=== PATIENT | male | born 1960 | race Caucasian/White ===

== ENCOUNTER → 2018-12-01 07:49 | Outpatient (CLI) | payer OTHER, SELFPAY ==
[2018-11-17 08:50] VITALS: BMI 31.6
--- NOTE | 2018-12-01 08:58 | CT_ITS ---
STUDY: LOW DOSE CT LUNG CANCER SCREENING REASON FOR EXAM: Male, 58 years old. 80 pack-year history of smoking. RADIATION DOSAGE (If Supplied By Facility): CTDIvol = ( 4.02 ) mGy, DLP = ( 148.98 ) mGycm TECHNIQUE: No contrast was administered. Low dose technique was utilized (average mAS-38 and kVp 120). 1.25 mm axial source images with a slice interval of 1.25-mm were reconstructed in lung windows. 2.5 mm axial source images with a slice interval of 2.5-mm were reconstructed in lung windows. 5.0 mm axial source images with a slice interval of 5.0-mm were reconstructed in soft tissue windows. Nodule measured using lung windows on PACS and/or independent workstation with automated measurement of minimum and maximum diameter. Nodule measurement reported as average diameter rounded to the nearest whole number. Growth is defined as an increase ins size of greater than 1.5 mm. COMPARISON: None. NODULES: No suspicious nodular densities are seen. Total lung nodules (excluding granulomas): 0 Emphysema: Mild degree of bile scarring and bullous formation in both upper lobes. Mild degree of scarring in the posterior medial segment of the right lower lobe. Endobronchial lesion: None Aorta: Unremarkable. Coronary arteries: Unremarkable Heart: Unremarkable Pulmonary artery: Not enlarged Mediastinal nodes: Small benign-appearing mediastinal lymph nodes. Other chest and abdominal findings: CT/Low Dose CT Lung Screening IMPRESSION: Lung-RADS category 2 - Continue annual screening with LDCT in 12 months. IMPORTANT NOTES FOR USE: ACR Lung-RADS Version 1.0 Assessment Categories Release Date: December 28, 2013 Category: Coded 0-4 bases on nodule(s) with highest degree of suspicion. Negative screen is defined as categories 1 and 2; a positive screen is defined as categories 3 and 4. Category 3 and 4A nodules that are unchanged on interval CT should be coded as category 2, and individuals returned to screening in 12 months. Category 4X: Category 3 or 4 nodules with additional imaging findings that increase the suspicion of lung cancer, such as spiculation, GGN that doubles in size in 1 year, enlarged lymph notes, etc. Category Modifiers: S (significant finding unrelated to lung cancer) and C (prior history of treated lung cancer) may be added to the 0-4 Lung-RADS Electronically Signed: Shravan Jim, at 9:03 EDT , Service support ,
== END ==
PROVIDERS: Family Provider Student in an Organized Health Care Education/Training Program; PCP Student in an Organized Health Care Education/Training Program; Referring Provider Nurse Practitioner Family; Visit Provider Nurse Practitioner Family
DX: F17.209 Nicotine dependence, unspecified, with unspecified nicotine-induced disorders (principal); Z12.2 Encounter for screening for malignant neoplasm of respiratory organs
CPT/HCPCS: G0297

== ENCOUNTER → 2020-01-12 | Outpatient (CLI) | payer OTHER, SELFPAY ==
[2018-12-01 08:20] VITALS: BMI 31.8
[2020-01-12 12:57] VITALS: BMI 33.7
--- NOTE | 2020-01-12 13:40 | CT_ITS ---
STUDY: LOW DOSE CT LUNG CANCER SCREENING REASON FOR EXAM: Male, 59 years old. TOBACCO USE, 1/2-1 PPD X 40 YRS. RADIATION DOSAGE (If Supplied By Facility): CTDIvol = ( 4.02 ) mGy, DLP = ( 130.39 ) mGycm TECHNIQUE: No contrast was administered. Low dose technique was utilized (average mAS-38 and kVp 120). 1.25 mm axial source images with a slice interval of 1.25-mm were reconstructed in lung windows. 2.5 mm axial source images with a slice interval of 2.5-mm were reconstructed in lung windows. 5.0 mm axial source images with a slice interval of 5.0-mm were reconstructed in soft tissue windows. Nodule measured using lung windows on PACS and/or independent workstation with automated measurement of minimum and maximum diameter. Nodule measurement reported as average diameter rounded to the nearest whole number. Growth is defined as an increase ins size of greater than 1.5 mm. COMPARISON: Comparison is made with prior examination dated December 01, 2018. NODULES: No suspicious nodules are seen. Emphysema: Stable mild degree of scarring and bullous formation in both upper lobes. Mild degree of scarring in the posteromedial segment of the right lower lobe. Aorta: Mild degree of atherosclerotic calcification in the aortic arch. Coronary arteries: Unremarkable. Heart: Unremarkable. Mediastinal nodes: Small benign-appearing mediastinal lymph nodes. Other chest and abdominal findings: Degenerative changes of the thoracic vertebrae. CT/Low Dose CT Lung Screening IMPRESSION: Lung-RADS category 2 - Continue annual screening with LDCT in 12 months. IMPORTANT NOTES FOR USE: ACR Lung-RADS Version 1.0 Assessment Categories Release Date: December 28, 2013 Category: Coded 0-4 bases on nodule(s) with highest degree of suspicion. Negative screen is defined as categories 1 and 2; a positive screen is defined as categories 3 and 4. Category 3 and 4A nodules that are unchanged on interval CT should be coded as category 2, and individuals returned to screening in 12 months. Category 4X: Category 3 or 4 nodules with additional imaging findings that increase the suspicion of lung cancer, such as spiculation, GGN that doubles in size in 1 year, enlarged lymph notes, etc. Category Modifiers: S (significant finding unrelated to lung cancer) and C (prior history of treated lung cancer) may be added to the 0-4 Lung-RADS Electronically Signed: Shravan Jim, at 14:08 EDT , Service support ,
== END | disposition home or self-care (01) ==
PROVIDERS: PCP Student in an Organized Health Care Education/Training Program; Referring Provider Nurse Practitioner Family; Visit Provider Nurse Practitioner Family
DX: Z12.2 Encounter for screening for malignant neoplasm of respiratory organs (principal); Z87.891 Personal history of nicotine dependence
CPT/HCPCS: G0297

== ENCOUNTER → 2021-03-23 12:02 | Outpatient (CLI) | payer OTHER, SELFPAY ==
[2020-02-01 14:58] VITALS: BMI 34.6
--- NOTE | 2021-03-23 12:44 | CT_ITS ---
STUDY: LOW DOSE CT LUNG CANCER SCREENING REASON FOR EXAM: Male, 61 years old. Lung cancer screening -- and gt;30 pk yr history;former smoker; asymptomatic RADIATION DOSAGE (If Supplied By Facility): CTDIvol = ( 4.02 ) mGy, DLP = ( 158.03 ) mGycm TECHNIQUE: No contrast was administered. Low dose technique was utilized (average mAS-38 and kVp 120). 1.25 mm axial source images with a slice interval of 1.25-mm were reconstructed in lung windows. 2.5 mm axial source images with a slice interval of 2.5-mm were reconstructed in lung windows. 5.0 mm axial source images with a slice interval of 5.0-mm were reconstructed in soft tissue windows. Nodule measured using lung windows on PACS and/or independent workstation with automated measurement of minimum and maximum diameter. Nodule measurement reported as average diameter rounded to the nearest whole number. Growth is defined as an increase ins size of greater than 1.5 mm. COMPARISON: Comparison is made with prior study dated 01/12/2020. NODULES: No suspicious nodules are seen. Emphysema: Stable mild degree of scarring and bullous formation in both upper lobes as well as scarring in the posterior medial segment of the right lower lobe. Endobronchial lesion: None Aorta: Atherosclerotic calcification of the aortic arch. Coronary arteries: Unremarkable Heart: Unremarkable Pulmonary artery: Unremarkable Mediastinal nodes: Small benign-appearing mediastinal lymph nodes. Other chest and abdominal findings: Degenerative changes of the dorsal spine. CT/Low Dose CT Lung Screening IMPRESSION: Lung-RADS category 2 - Continue annual screening with LDCT in 12 months. IMPORTANT NOTES FOR USE: ACR Lung-RADS Version 1.1 Assessment Categories Release Date: 2018 Category: Coded 0-4 bases on nodule(s) with highest degree of suspicion. Negative screen is defined as categories 1 and 2; a positive screen is defined as categories 3 and 4. Category 3 and 4A nodules that are unchanged on interval CT should be coded as category 2, and individuals returned to screening in 12 months. Category 4X: Category 3 or 4 nodules with additional imaging findings that increase the suspicion of lung cancer, such as spiculation, GGN that doubles in size in 1 year, enlarged lymph notes, etc. Category Modifiers: S (significant finding unrelated to lung cancer) Electronically Signed: Shravan Jim MD at 13:21 EDT , Service support ,
== END ==
PROVIDERS: PCP Internal Medicine; Referring Provider Nurse Practitioner Family; Visit Provider Nurse Practitioner Family
DX: Z87.891 Personal history of nicotine dependence (principal); Z12.2 Encounter for screening for malignant neoplasm of respiratory organs
CPT/HCPCS: 71271

== ENCOUNTER → 2022-08-28 | Outpatient (CLI) | payer OTHER, SELFPAY ==
--- NOTE | 2022-08-28 12:26 | CT_ITS ---
STUDY: LOW DOSE CT LUNG CANCER SCREENING REASON FOR EXAM: Male, 62 years old. Lung cancer screening -- and gt; 20 pk yr hx;asymptomatic; former smoker RADIATION DOSAGE (If Supplied By Facility): CTDIvol = ( 4.02 ) mGy, DLP = ( 137.93 ) mGycm TECHNIQUE: No contrast was administered. Low dose technique was utilized (average mAS-38 and kVp 120). 1.25 mm axial source images with a slice interval of 1.25-mm were reconstructed in lung windows. 2.5 mm axial source images with a slice interval of 2.5-mm were reconstructed in lung windows. 5.0 mm axial source images with a slice interval of 5.0-mm were reconstructed in soft tissue windows. COMPARISON: CT lung cancer screening from 03/23/2021, 01/12/2020.. NODULES: No suspicious nodules. Emphysema: Similar degree of mild emphysematous changes. Stable trace scarring in the medial segment of the right lower lobe. Endobronchial lesion: None. Aorta: Minimal atherosclerotic calcifications. CORONARY ARTERIES: Minimal coronary artery calcifications. Heart: Normal size. Pulmonary artery: Nondilated. Mediastinal nodes: No lymphadenopathy within limits of study. Other chest and abdominal findings: Mild multilevel degenerative changes of thoracolumbar spine. Visualized upper abdomen is unremarkable. CT/Low Dose CT Lung Screening IMPRESSION: Lung-RADS category 1 - Continue annual screening with LDCT in 12 months. IMPORTANT NOTES FOR USE: ACR Lung-RADS Version 1.1 Assessment Categories Release Date: 2018 Category: Coded 0-4 bases on nodule(s) with highest degree of suspicion. Negative screen is defined as categories 1 and 2; a positive screen is defined as categories 3 and 4. Category 3 and 4A nodules that are unchanged on interval CT should be coded as category 2, and individuals returned to screening in 12 months. Category 4X: Category 3 or 4 nodules with additional imaging findings that increase the suspicion of lung cancer, such as spiculation, GGN that doubles in size in 1 year, enlarged lymph notes, etc. Category Modifiers: S (significant finding unrelated to lung cancer) Electronically Signed: Omer Barbosa, at 13:19 EST ,
== END | disposition home or self-care (01) ==
LOC: CT 12:25
PROVIDERS: PCP Internal Medicine; Visit Provider Nurse Practitioner Family
DX: Z87.891 Personal history of nicotine dependence (principal)
CPT/HCPCS: 71271

== ENCOUNTER → 2024-02-18 | Outpatient (CLI) | payer OTHER, SELFPAY ==
--- NOTE | 2024-02-18 13:59 | CT_ITS ---
STUDY: LOW DOSE CT LUNG CANCER SCREENING REASON FOR EXAM: Male, 63 years old. Lung cancer screening -- 35 pk yr hx;former smoker;asymptomatic RADIATION DOSAGE (If Supplied By Facility): CTDIvol = ( 3.18 ) mGy, DLP = ( 110.00 ) mGycm TECHNIQUE: No contrast was administered. Low dose technique was utilized (average mAS-38 and kVp 120). 1.25 mm axial source images with a slice interval of 1.25-mm were reconstructed in lung windows. 2.5 mm axial source images with a slice interval of 2.5-mm were reconstructed in lung windows. 5.0 mm axial source images with a slice interval of 5.0-mm were reconstructed in soft tissue windows. COMPARISON: Comparison is made with prior study dated August 28, 2022. NODULES: No suspicious nodules are seen. Emphysema: Hyperinflation. Mild degree of emphysematous changes. Minimal linear scarring in the posterior medial segment of the right lower lobe. Endobronchial lesion: None Aorta: Mild atherosclerotic plaque formation of the aortic arch. CORONARY ARTERIES: Coronary artery calcification is seen. Heart: Unremarkable Pulmonary artery: Unremarkable Mediastinal nodes: Small mediastinal lymph nodes. Other chest and abdominal findings: CT/Low Dose CT Lung Screening IMPRESSION: Lung-RADS category 2 - Continue annual screening with LDCT in 12 months. IMPORTANT NOTES FOR USE: ACR Lung-RADS Version 1.1 Assessment Categories Release Date: 2018 Category: Coded 0-4 bases on nodule(s) with highest degree of suspicion. Negative screen is defined as categories 1 and 2; a positive screen is defined as categories 3 and 4. Category 3 and 4A nodules that are unchanged on interval CT should be coded as category 2, and individuals returned to screening in 12 months. Category 4X: Category 3 or 4 nodules with additional imaging findings that increase the suspicion of lung cancer, such as spiculation, GGN that doubles in size in 1 year, enlarged lymph notes, etc. Category Modifiers: S (significant finding unrelated to lung cancer) Electronically Signed: Shravan Jim MD at 14:33 EDT ,
== END | disposition home or self-care (01) ==
LOC: CT 13:59
PROVIDERS: PCP Internal Medicine; Referring Provider Nurse Practitioner Family; Visit Provider Nurse Practitioner Family
DX: Z12.2 Encounter for screening for malignant neoplasm of respiratory organs (principal); Z87.891 Personal history of nicotine dependence
CPT/HCPCS: 71271

== ENCOUNTER → 2025-03-02 | Outpatient (CLI) | payer OTHER, SELFPAY ==
--- NOTE | 2025-03-02 12:43 | CT_ITS ---
PROCEDURE: LOW DOSE CT LUNG SCREENING 03/02/2025 REASON FOR EXAM: LUNG CANCER SCREENING Long-term smoking history, former smoker TECHNIQUE: LOW DOSE CT LUNG SCREENING Coronal and Sagittal reconstruction series were provided. One or more dose reduction techniques were used (e.g., Automated exposure control, adjustment of the mA and/or kV according to patient size, use of iterative reconstruction technique). REFERENCE LINK: [facility] Lung-RADS RADIATION DOSE SUMMARY: CTDlvol: 3.02 mGy DLP: 108.35 mGycm COMPARISON: 02/18/2024 FINDINGS: Lung windows show underlying emphysema with emphysematous blebs throughout both lung belcher, nonspecific pleural thickening in the apices and both hemithoraces. Fibrotic scarring noted in both lower lung belcher. Limited soft tissue windows show a normal-appearing thyroid gland. No suspicious axillary, mediastinal or perihilar adenopathy. Peripheral calcifications noted in the thoracic aorta without aneurysm. There are calcified coronary vessels. Bony structures show degenerative change. Limited cuts through the upper abdomen do not show a suspicious abnormality CT/Low Dose CT Lung Screening IMPRESSION: Underlying emphysema with chronic interstitial changes, no superimposed acute p ulmonary process or significant interval change Coronary artery calcification (CAC) is is present Lung-RADS Category: 2 BENIGN (BASED ON IMAGING FEATURES OR INDOLENT BEHAVIOR). RECOMMEND 12-MONTH SCREENING LDCT. Other Significant Findings: Reading Location: [id number]
--- OUTSIDE RECORDS SUMMARY | 2025-03-02 22:23 | XMS RPT_ITS | CCD ---
Author Organization [facility] Care Team Providers Care Traffic Engineering Director Name Role Phone Arsenio Monique MD Primary Care Provider [phone] Dr. Arsenio Monique Primary Care Provider Dr. 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, Radha Unavailable KAYDEN, ARSENIO A Referring Unavailable KAYDEN, ARSENIO A Primary Care Unavailable KAYDEN, ARSENIO A Referring Unavailable KAYDEN, ARSENIO A Primary Care Unavailable KAYDEN, ARSENIO A Attending Unavailable KAYDEN, ARSENIO A Primary Care Unavailable KAYDEN, ARSENIO A Attending Unavailable KAYDEN, ARSENIO A Primary Care Unavailable KAYDEN, ARSENIO A Primary Care Unavailable KAYDEN, ARSENIO A Referring Unavailable KAYDEN, ARSENIO A Primary Care Unavailable ARGEKAR, VALORIE A Referring Unavailable ARGEKAR, VALORIE A Referring Unavailable KAYDEN, ARSENIO A Primary Care Unavailable KAYDEN, ARSENIO A Primary Care Unavailable KAYDEN, ARSENIO A Primary Care Unavailable KAYDEN, ARSENIO A Referring Unavailable Iftikhar CONTRACTS PARALEGAL, Janice Referring Unavailable Iftikhar CONTRACTS PARALEGAL, Janice Attending Unavailable [place], Arsenio Primary Care Unavailable [place] Dr. Arsenio LOPEZ Primary Care Provider Dr. Arsenio Monique MD Referring Provider Iftikhar CONTRACTS PARALEGAL-C, Janice Attending Provider [phone] Iftikhar CONTRACTS PARALEGAL-C, Janice Referring Provider Tiffanie LOPEZ, Dr. Salamanca Attending Provider Dominique LOPEZ, Dr. Thorne Primary Care Provider Dominique LOPEZ, Dr. Thorne Referring Provider [phone] Dominique LOPEZ, Dr. Thorne Other Provider Allergies Allergy Classification Reported Allergen(s) Allergy Type Date of Onset Reaction(s) Facility (20 sources) Sulfonamides (Antibiotic); Translations: [SULFA (SULFONAMIDE ANTIBIOTICS)] Propensity to adverse reactions to drug 6 Unknown [facility] (3 sources) Codeine Drug Allergy 2 Itching [facility] (3 sources) Sulfonamides (Antibiotic) Allergy to substance 2 Unknown [facility] (1 source) Codeine Drug Allergy 4 [facility] (1 source) Sulfonamides (Antibiotic) Drug allergy (disorder) 4 [facility] Medications Current Medications Medication Drug Class(es) Dates Sig (Normalized) Sig (Original) acetaminophen 325 mg / oxyCODONE hydrochloride 5 mg oral tablet (1 source) Opioid Agonist Start: 04-15-2022 End: 04-18-2022 take 1 tablet by mouth four times daily as needed for pain oxyCODONE-acetamin ophen (PERCOCET) 5-325 mg tablet Indications: Cholecystitis Take 1 tablet by mouth four times daily as needed for pain for up to 3 days. 10 tablet 0 04/15/2022 04/18/2022 Active Comment on above: [facility] as needed for pain for up to 3 days. amLODIPine 5 mg oral tablet (20 sources) Dihydropyridine Calcium Channel Annalise Start: 01-29-2025 take 1 tablet by mouth once daily amLODIPine (NORVASC) 5 mg tablet Take 1 tablet by mouth once daily. 01/29/2025 Active Start: 02-20-2023 take 2 tablets by mo [facility] once daily Amlodipine 2.5 mg tablet Active 5 mg PO DAILY February 20, 2023 10:50am Start: 03-20-2022 End: 02-20-2023 take 1 tablet by mouth once daily Amlodipine 2.5 mg tablet Discontinued 2.5 mg PO DAILY March 20, 2022 12:00am February 20, 2023 10:52am take 2.5 mg by mouth once daily amLODIPine (NORVASC) 10 mg tablet Take 2.5 mg by mouth once daily. Active Comment on above: Take 2.5 mg by mouth once daily. ascorbic acid 500 mg oral capsule (20 sources) Vitamin C Start: 01-12-2020 take 1 capsule by mouth once daily Ascorbic Acid (Vitamin C) 500 mg capsule Active 500 mg PO DAILY January 12, 2020 12:00am take 1 capsule by mouth once yasir ly Ascorbic Acid 500 mg cpER Take 1 capsule by mouth once daily. Active Comment on above: Take 1 capsule by mo [facility] once daily. atorvastatin 80 mg oral tablet (20 sources) HMG-CoA Reductase Inhibitor Start: 01-12-20 End: 07-31-20 24 take 1 tablet by mouth at bedtime Atorvastatin 80 mg tablet Active 80 mg PO AT BEDTIME January 12, 2020 12:00am Comment on above: Take 1 tablet by mark once daily. BEFORE BEDTIME TAKE 1 TABLET BY MARK TH ONCE DAILY before bedtime cholecalciferol 0.025 mg oral capsule (3 sources) Vitamin D Start: 01-12-20 take 1 capsule by mouth once daily Cholecalciferol (Vitamin D3) 25 mcg (1,000 unit) capsule Active 25 ug PO DAILY January 12, 2020 12:00am cholecalciferol, vitamin D3, (VITAMIN D3 ORAL) (20 sources) take 1000 [IU] by mouth once daily cholecalciferol, vitamin D3, (VITAMIN D3 ORAL) Take 1,000 Units by mouth once daily. Active take 1000 [IU] by mouth once yasir ly cholecalciferol, vitamin D3, (VITAMIN D3 ORAL) Take 1,000 Units by mouth once daily. 0 Active Comment on above: Take 1,000 Units by mouth once daily. cider vinegar 300 mg oral tablet (2 sources) Start: 3 take 1 tablet by mouth once daily Apple Cider Vinegar 300 mg tablet Active 300 mg PO DAILY February 20, 2023 12:00am gummies ferrous sulfate 325 mg oral tablet (9 sources) End: 2 take 1 tablet by mouth once daily at breakfast ferrous sulfate 325 mg (65 mg iron) tablet Take 325 mg by mouth daily with breakfast. 0 05/10/2022 Discontinued Comment on above: Take 325 mg by mouth daily with breakfast. lisinopril 5 mg oral tablet (20 sources) Angiotensin Converting Enzyme Inhibitor Start: take 2 tablets by mouth twice daily Lisinopril 5 mg tablet Active 10 mg PO TWICE A DAY March 02, 2025 12:15pm Start: 07-16-2023 End: 07-31-2024 take 1 tablet by mouth twice daily lisinopril (ZESTRIL) 10 mg tablet Take 1 tablet by mouth two times a day. 180 tablet 4 07/31/2024 Active Start: 03-20-2022 End: 03-02-2025 take 2 tablets by mouth once daily Lisinopril 5 mg tablet Discontinued 10 mg PO DAILY March 20, 2022 11:14am March 02, 2025 12:15pm Start: 03-20-2022 take 10 mg by mouth once daily Lisinopril Active 10 MG PO DAILY March 20, 2022 10:14am Start: 11-20-2021 End: 07-13-2023 take 1 tablet by mouth twice daily lisinopril (ZESTRIL, PRINIVIL) 10 mg tablet Take 1 tablet by mouth twice daily. 0 11/20/2021 07/13/2023 Discontinued Start: 03-23-2021 End: 03-20-2022 take 4 tablets by mouth once daily Lisinopril 5 mg tablet Discontinued 20 mg PO DAILY March 23, 2021 12:19pm March 20, 2022 11:16am Start: 03-23-2021 End: 03-20-2022 take 20 mg by mouth once daily Lisinopril Discontinued 20 MG PO DAILY March 23, 2021 11:19am March 20, 2022 10:16am Start: 01-12-2020 End: 03-23-2021 take 2 tablets by mouth twice daily Lisinopril 5 mg tablet Discontinued 10 mg PO TWICE A DAY January 12, 2020 12:53pm March 23, 2021 12:20pm Start: 01-12-2020 End: 03-23-2021 take 10 mg by mouth twice daily Lisinopril Discontinue d 10 MG PO TWICE A DAY January 12, 2020 11:53am March 23, 2021 11:20am Start: 05-15-2018 End: 01-12-2020 take 1 tablet by mouth once daily Lisinopril 5 MG tablet Discontinued 5 mg PO DAILY May 15, 2018 12:00am January 12, 2020 12:57pm Comment on above: Take 1 tablet by mark th twice daily. Take 1 tablet by mark th two times a day. mecobalamin 1 mg chewable tablet (2 sources) Start: 02-20-2023 take 1 tablet by mouth once daily Mecobalamin (Vitamin B12) 1,000 mcg tablet,chewable Active 1000 ug PO DAILY February 20, 2023 12:00am Multivitamin preparation (1 source) Start: 04-14-2021 take 1 tablet by mouth once daily Multivitamin Active 1 TABLET PO DAILY April 13, 2021 11:00pm multivitamin tablet (20 sources) Start: 05-10-2022 take 1 tablet by mouth once daily multivitamin tablet Take 1 tablet by mouth once daily. 05/10/2022 Active Start: 05-10-2022 take 1 tablet by mark th once daily multivitamin tablet Take 1 tablet by mouth once daily. 0 05/10/2022 Active Comment on above: Take 1 tablet by mark th once daily. Multivitamin Tablet (2 sources) Start: 04-14-2021 Multivitamin Tablet Active 1 {tbl} PO DAILY April 14, 2021 12:00am VITAMIN B COMPLEX-100 ORAL (20 sources) take 1 tablet by mouth once daily VITAMIN B COMPLEX-100 ORAL Take 1 tablet by mouth once daily. Active take 1 tablet by mouth once sara y VITAMIN B COMPLEX-100 ORAL Take 1 tablet by mouth once daily. 0 Active Comment on above: Take 1 tablet by mark th once daily. vitamin e 90 mg oral capsule (3 sources) Start: 01-12-2020 take 1 capsule by mouth once daily Vitamin E 200 unit capsule Active 200 U PO DAILY January 12, 2020 12:00am Completed/Discontinued Medications Medication Drug Class(es) Dates Sig (Normalized) Sig (Original) aspirin 81 mg delayed release oral tablet (17 sources) Platelet Aggregation Inhibitor, Nonsteroidal Anti-inflammatory Drug Start: 01-12-2020 End: 02-18-2024 take 1 tablet by mouth once daily as needed Aspirin 81 mg tablet,delayed release (DR/EC) Discontinued 81 mg PO DAILY as needed February 20, 2023 10:52am February 18, 2024 1:32pm Start: 03-24-2018 End: 01-12-2020 take 1 tablet by mouth every other day Aspirin 81 MG tablet,delayed release (DR/EC) Discontinued 81 mg PO EVERY OTHER DAY March 24, 2018 12:00am January 12, 2020 12:57pm End: 05-10-2022 take 81 mg by mouth once daily ADULT LOW DOSE ASPIRIN ORAL Take 81 mg by mouth once daily. 0 05/10/2022 Discontinued Comment on above: Take 81 mg by mouth once daily. metFORMIN hydrochloride 500 mg oral tablet (3 sources) Biguanide Start: 11-17-2018 End: 12-01-2018 Metformin 500 MG tablet Discontinued 250 mg PO DAILY November 17, 2018 12:00am December 01, 2018 8:19am Start: 11-17-2018 End: 12-01-2018 take 250 mg by mouth once daily Metformin Discontinued 250 MG PO DAILY November 16, 2018 11:00pm December 01, 2018 7:19am sildenafil 100 mg oral tablet (20 sources) Phosphodiesterase 5 Inhibitor Start: 03-24-2018 End: 02-18-2024 Sildenafil 100 MG tablet Discontinued 100 mg PO DIRECTED March 24, 2018 12:00am February 18, 2024 1:33pm sildenafil (VIAG RA) 25 mg tablet Take 1 tablet by mouth as needed. Active Comment on above: Take 1 tablet by mark th as needed. Vitamin B Complex-Folic Acid (1 source) Start: 02-01-2020 End: 03-20-2022 take 0.4 mg by mouth once daily Vitamin B Complex-Folic Acid Discontinued 0.4 MG PO DAILY January 31, 2020 11:00pm March 20, 2022 10:15am Vitamin B Complex-Folic Acid 0.4 MG tablet (2 sources) Start: 02-01-2020 End: 03-20-2022 take 1 tablet by mouth once daily Vitamin B Complex-Folic Acid 0.4 MG tablet Discontinued 0.4 mg PO DAILY February 01, 2020 12:00am March 20, 2022 11:15am Problems Active Problems Problem Classification Problem Date Documented Da te Episodic/Chronic Acute and unspecified renal failure (1 source) Acute kidney failure, unspecified; Translations: [Acute kidney injury (nontraumatic)] Onset: 02-13-2025 Episodic Chronic kidney disease (7 sources) Chronic renal failure; Translations: [Chronic kidney disease, unspecified] Onset: 08-05-2024 06-07-2023 Chronic Coagulation and hemorrhagic disorders (20 sources) Platelet count below reference range; Translations: [Thrombocytopenia, unspecified] Onset: 03-19-2018 03-19-2018 Chronic Deficiency and other anemia (20 sources) Anemia; Translations: [Anemia, unspecified] Onset: 03-19-2018 03-19-2018 Episodic Diabetes mellitus with complications (20 sources) Type 2 diabetes mellitus; Translations: [Type 2 diabetes mellitus with diabetic chronic kidney disease] Onset: 11-21-2018 01-27-2021 Chronic Diabetes mellitus without complication (6 sources) Type 2 diabetes mellitus without complication; Translations: [Type 2 diabetes mellitus without complications] Onset: 01-09-2025 Chronic Diabetes mellitus without complication (2 sources) Diabetes mellitus without complication; Translations: [Type 2 diabetes mellitus with stage 3a chronic kidney disease, without long-term current use of insulin (HCC)] Onset: 01-27-2021 Disorders of lipid metabolism (20 sources) Hyperlipidemia; Translations: [Hyperlipidemia, unspecified] Onset: 11-21-2018 11-21-2018 Chronic Essential hypertension (20 sources) Essential hypertension; Translations: [Essential (primary) hypertension] Onset: 11-21-2018 11-21-2018 Chronic Genitourinary symptoms and ill-defined conditions (5 sources) Asymptomatic proteinuria; Translations: [Proteinuria, unspecified] Onset: 02-13-2025 04-21-2018 Episodic Hepatitis (1 source) Chronic hepatitis C; Translations: [Chronic viral hepatitis C] 06-07-2023 Chronic Hepatitis (4 sources) Viral hepatitis C; Translations: [Unspecified viral hepatitis C without hepatic coma] 04-21-2018 Episodic Immunity disorders (4 sources) Polyclonal gammopathy; 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 Immunizations and screening for infectious disease (15 sources) Patient encounter status; Translations: [Encounter for immunization] Episodic Comment on above: Due for screening 12/02/2019 Neoplasms of unspecified nature or uncertain behavior (1 source) Gammopathy; Translations: [Monoclonal gammopathy] 03-02-2025 Chronic Other and unspecified benign neoplasm (1 source) History of polyp of colon; Translations: [History of colonic polyps] 07-31-2024 Episodic Other diseases of kidney and ureters (3 sources) Kidney disease; Translations: [Disorder of kidney and ureter, unspecified] 04-21-2018 Episodic Other endocrine disorders (2 sources) Hyperparathyroidism , unspecified; Translations: [Hyperparathyroidis m, unspecified (HCC)] Onset: 08-07-2024 Chronic Other liver diseases (14 sources) Cirrhosis of liver; Translations: [Unspecified cirrhosis of liver] Onset: 06-07-2023 06-07-2023 Chronic Other liver diseases (1 source) Steatosis of liver; Translations: [Fatty (change of) liver, not elsewhere classified] 06-07-2023 Chronic Other liver diseases (1 source) Unspecified cirrhosis of liver; Translations: [Cirrhosis of liver without ascites, unspecified hepatic cirrhosis type (HCC)] Onset: 06-07-2023 Chronic Other nutritional; endocrine; and metabolic disorders (20 sources) Obese class I; Translations: [Obesity, unspecified] Onset: 05-16-2018 05-16-2018 Chronic Residual codes; unclassified (4 sources) Obstructive sleep apnea syndrome; Translations: [Obstructive sleep apnea (adult) (pediatric)] 04-21-2018 Chronic Screening and history of mental health and substance abuse codes (6 sources) Tobacco use and exposure - finding; Translations: [Personal history of nicotine dependence] Episodic Substance-related disorders (7 sources) Tobacco user; Translations: [Nicotine dependence, unspecified, uncomplicated] Onset: 11-21-2018 Resolved: 07-22-2020 07-22-2020 Chronic Past or Other Problems Problem Classification Problem Date Documented Da te Episodic/Chronic Biliary tract disease (20 sources) Cholecystitis; Translations: [Cholecystitis, unspecified] Onset: 04-14-2022 04-14-2022 Episodic Other infections; including parasitic (20 sources) History of hepatitis C; Translations: [Personal history of other infectious and parasitic diseases] Onset: 08-11-2018 07-22-2020 Episodic Other nutritional; endocrine; and metabolic disorders (6 sources) Obese class II; Translations: [Obesity, Class II, BMI 35-39.9] Onset: 03-06-2018 Resolved: 02-10-2019 02-10-2019 Chronic Other screening for suspected conditions (not mental disorders or infectious disease) (4 sources) Encounter for screening for malignant neoplasm of respiratory organs; Translations: [Special screening for malignant neoplasms of respiratory organs] Onset: 06-13-2024 Episodic Results Test Name Value Interpretation Reference Range Facility Absolute lymphocyte countOrd ered By: Jadyn Moreno on 03-02-2025 Lymphocytes Auto (Unsp spec) [#/Vol] 1.60 10*3/uL 0.83-4.51 [facility] Absolute neutrophil countOrd ered By: Jadyn Moreno on 03-02-2025 Neutrophils (Bld) [#/Vol] 3.9 10*3/uL 2.0-7.7 [facility] Anion gap in Serum or Plasma Ordered By: Jadyn Moreno on 03-02-2025 Anion gap [Moles/Vol] 11 mmol/L 5-15 [facility] Automated lymphocyte count a s percentage of total leukocytesOrdered By: Jadyn Moreno on 03-02-2025 Lymphocytes/100 WBC Auto (Unsp spec) 26.0 % 19-41 [facility] BUN/creatinine ratioOrdered By: Jadyn Moreno on 03-02-2025 Urea nitrogen/Creatinine [Mass ratio] 14.6 mg/mg 10-20 [facility] Basophil percentageOrdered B y: Jadyn Moreno on 03-02-2025 Basophils/100 WBC (Bld) 0.5 % 0-1 [facility] Carbon dioxide, total [Moles /volume] in Central venous bloodOrdered By: Jadyn Moreno on 03-02-2025 CO2 [Moles/Vol] 20.5 mmol/L Low 21.0-32.0 [facility] Chloride assayOrdered By: Delvin Moreno on 03-02-2025 Chloride [Moles/Vol] 107 mmol/L 98-108 [place] Eosinophil percentageOrdered By: Jadyn Moreno on 03-02-2025 Eosinophils/100 WBC (Bld) 3.6 % 0-5 [facility] Erythrocyte distribution wid th ratioOrdered By: Jadyn Moreno on 03-02-2025 Erythrocyte distribution width (RBC) [Ratio] 13.3 % 11.6-14.6 [facility] Erythrocyte distribution wid th standard deviationOrdered By: Jadyn Moreno on 03-02-2025 Erythrocyte distribution width (RBC) [Ratio] 44.1 fl High 35.1-43.9 [facility] Glomerular filtration rate ( GFR) estimation/1.73 sq m using serum, plasma, or whole bOrdered By: Jadyn Moreno on 03-02-2025 GFR/1.73 sq M.predicted among non-blacks MDRD (S/P/Bld) [Vol rate/Area] 47 mL/min/{1.73_m2} Low >60 [facility] Comment on above: mL/min/1.73m2 CKD-EP I Creatinine Equation (2020) Hematocrit Auto (Bld) [Volum e fraction]Ordered By: Jadyn Moreno on 03-02-2025 Hematocrit (Bld) [Volume fraction] 34.0 % Low 40-54 [facility] Hemoglobin measurementOrdere d By: Jadyn Moreno on 03-02-2025 Hemoglobin (Bld) [Mass/Vol] 11.4 g/dL Low 13.0-16.5 [facility] Immature granulocytes/100 WB C Auto (Bld)Ordered By: Jadyn Moreno on 03-02-2025 Immature granulocytes/100 WBC (Bld) 0.200 % 0.0-0.9 [facility] Comment on above: IG% - Immature Granu locytes (promyelocytes, myelocytes and metamyelocytes) > 1% indicates that a LEFT SHIFT is Present. Iron measurement (mass/mass) Ordered By: Jadyn Moreno on 03-02-2025 Iron (Unsp spec) [Mass/Mass] 72 ug/dL 65-175 [facility] MCV (mean corpuscular volume ) determinationOrdered By: Jadyn Moreno on 03-02-2025 MCV (RBC) [Entitic vol] 90.2 fL 80-94 [facility] Mean corpuscular hemoglobin (MCH) determinationOrdered By: Jadyn Moreno on 03-02-2025 MCH (RBC) [Entitic mass] 30.2 pg 27.0-32.0 [facility] Mean corpuscular hemoglobin concentration (MCHC) determinationOrdered By: Jadyn Moreno on 03-02-2025 MCHC (RBC) [Mass/Vol] 33.5 g/dL 32-36 [facility] Mean platelet volume determi nationOrdered By: Jadyn Moreno on 03-02-2025 Platelet mean volume (Bld) [Entitic vol] 12.4 fL High 6.2-12.0 [facility] Monocyte percentageOrdered B y: Jadyn Moreno on 03-02-2025 Monocytes/100 WBC (Bld) 6.3 % 0-10 [facility] Neutrophil percentageOrdered By: Jadyn Moreno on 03-02-2025 Neutrophils/100 WBC (Bld) 63.4 % 47-70 [facility] No Panel InformationOrdered By: Jadyn Moreno on 03-02-2025 Unsaturated Iron Binding Capacity 257 ug/dL 228-428 [facility] Nucleated red blood cell per centageOrdered By: Jadyn Moreno on 03-02-2025 Nucleated RBC/100 WBC (Bld) [Ratio] 0 % 0-5 [facility] Platelet countOrdered By: Delvin Moreno on 03-02-2025 Platelets (Bld) [#/Vol] 142 10*3/uL Low 150-450 [facility] Potassium measurement (mass/ volume)Ordered By: Jadyn Moreno on 03-02-2025 Potassium (Unsp spec) [Mass/Vol] 5.0 mmol/L 3.3-5.1 [facility] RBC Auto (Bld) [#/Vol]Ordere d By: Jadyn Moreno on 03-02-2025 RBC (Bld) [#/Vol] 3.77 10*6/uL Low 4.6-6.2 [facility] Reticulocyte hemoglobin equi valent (RET-He) measurementOrdered By: Jadyn Moreno on 03-02-2025 Hemoglobin (Reticulocytes) [Entitic mass] 33.5 pg 30-35 [facility] Reticulocytes Auto (Bld) [#/ Vol]Ordered By: Jadyn Moreno on 03-02-2025 Reticulocytes/100 RBC (Bld) 1.26 % 0.5-1.5 [facility] Serum creatinine measurement (mass/volume)Ordered By: Jadyn Moreno on 03-02-2025 Creatinine [Mass/Vol] 1.61 mg/dL High 0.70-1.20 [facility] Serum glucose measurement (m ass/volume)Ordered By: Jadyn Moreno on 03-02-2025 Glucose [Mass/Vol] 140 mg/dL High 70-99 [facility] Serum or plasma calcium yin urement (mass/volume)Ordered By: Jadyn Moreno on 03-02-2025 Calcium [Mass/Vol] 10.6 mg/dL 7.6-11.0 [facility] Serum or plasma ferritin luke surement (mass/volume)Ordered By: Jadyn Moreno on 03-02-2025 Ferritin [Mass/Vol] 102 ng/mL 37-417 [facility] Serum or plasma iron saturat ion measurement (mass fraction)Ordered By: Jadyn Moreno on 03-02-2025 Iron saturation [Mass fraction] 22.0 % 9-55 [facility] Serum or plasma urea nitroge n measurement (mass/volume)Ordered By: Jadyn Moreno on 03-02-2025 Urea nitrogen [Mass/Vol] 24 mg/dL High 4-19 [facility] Sodium levelOrdered By: Jed Moreno on 03-02-2025 Sodium [Moles/Vol] 138 mmol/L 133-145 [facility] White blood cell (WBC) count Ordered By: Jadyn Moreno on 03-02-2025 WBC (Bld) [#/Vol] 6.2 10*3/uL 4.4-11.0 [facility] ALBUMIN/CREATININE RATIO, UR INEon 02-13-2025 Albumin Unsp time DL <= 20 mg/L (U) [Mass/Time] 290.2 mg/L Normal [facility] Comment on above: Order Comment: Speci men Type: URINE SPECIMEN Ordering Facility: [facility] Address: [address] [place] [id number] Performed By: #### U ACR #### [facility] CLIA [id number] [address] [place] [address] [place] Albumin/Creatinine (U) [Mass ratio] 442 mg/g High <30 [facility] Comment on above: Order Comment: Speci men Type: URINE SPECIMEN Ordering Facility: [facility] Address: [address] [place], [place] [id number] Result Comment: Adul t Male and Female Nephrotic Criteria: <30 mg/g is considered normal to mildly increased 30-300 mg/g is considered moderately increased >300 mg/g is considered severely increased KDIGO. (2013). KDIGO 2012 Clinical Practice Guideline for the Evaluation and Management of Chronic Kidney Disease. Official Journal of the International Society of Nephrology, 3(1), 1-150. Performed By: #### U ACR #### [facility] CLIA [id number] [address] [place] [address] [place] Creatinine (U) [Mass/Vol] 65.6 mg/dL Normal 46.8-314.5 [facility] Comment on above: Order Comment: Speci men Type: URINE SPECIMEN Ordering Facility: [facility] Address: [address] [place] [address] Performed By: #### U ACR #### [facility] CLIA [id number] [address] [place] [address] [place] Basic metabolic 2000 panelon 02-13-2025 Anion gap [Moles/Vol] 10 mmol/L Normal 8-15 [facility] Comment on above: Order Comment: Speci men Type: BLOOD SPECIMEN Ordering Facility: [facility] Address: [address] [place] [address] Performed By: #### [id number] #### [facility] CLIA [id number] [address] [place] [address] [place] Calcium [Mass/Vol] 10.4 mg/dL High 8.5-10.2 [facility] Comment on above: Order Comment: Speci men Type: BLOOD SPECIMEN Ordering Facility: [facility] Address: [facility] [place] [address] Performed By: #### [id number] #### [facility] CLIA [id number] [address] [place] [address] [place] Chloride [Moles/Vol] 107 mmol/L Normal 98-107 [facility] Comment on above: Order Comment: Speci men Type: BLOOD SPECIMEN [facility] [facility] Address: [address] [place] [address] Performed By: #### 5 5454-3 #### [facility] CLIA [id number] [address] [place] [address] [place] CO2 [Moles/Vol] 23 mmol/L Normal 22-30 [facility] Comment on above: Order Comment: Speci men Type: BLOOD SPECIMEN Ordering Facility: [facility] Address: [address] [place] [address] Performed By: #### 5 5454-3 #### [facility] CLIA [id number] [address] [place] [address] [place] Creatinine [Mass/Vol] 1.58 mg/dL High 0.73-1.22 [facility] Comment on above: Order Comment: Speci men Type: BLOOD SPECIMEN Ordering Facility: [facility] Address: [address] [place] [address] Performed By: #### 5 5454-3 #### [facility] CLIA [id number] [address] [place] [address] [place] Creatinine and Glomerular filtration rate.predicted panel (S/P/Bld) 48 mL/min/1.73m??? Low >=60 [facility] Comment on above: Order Comment: Speci men Type: BLOOD SPECIMEN Ordering Facility: [facility] Address: [address] [place] [address] Result Comment: Parris mated Glomerular Filtration Rate (eGFR) is calculated using the 2020 CKD-EPI creatinine equation. This equation utilizes serum creatinine, sex, and age as parameters. The creatinine assay has traceable calibration to isotope dilution-mass spectrometry. Refer to KDIGO guidelines for clinical interpretation. In patients with unstable renal function, e.g. those with acute kidney injury, the eGFR may not accurately reflect actual GFR. Performed By: #### 5 5454-3 #### [facility] CLIA [id number] [address] [place] [address] [place] Glucose [Mass/Vol] 163 mg/dL High 74-99 [facility] Comment on above: Order Comment: Faith jeffries Type: BLOOD SPECIMEN Ordering Facility: [facility] Address: [address] [place] [address] Result Comment: The [place] [employer] (ADA) provides guidance for cutoff values for fasting glucose and random glucose. The ADA defines fasting as no caloric intake for at least 8 hours. Fasting plasma glucose results between 100 to 125 mg/dL indicate increased risk for diabetes (prediabetes). Fasting plasma glucose results greater than or equal to 126 mg/dL meet the criteria for diagnosis of diabetes. In the absence of unequivocal hyperglycemia, results should be confirmed by repeat testing. In a patient with classic symptoms of hyperglycemia or hyperglycemic crisis, random plasma glucose results greater than or equal to 200 mg/dL meet the criteria for diagnosis of diabetes. Reference: Standards of Medical Care in Diabetes 2016, [place] [employer]. Diabetes Care. 2016.39(Suppl 1). Performed By: #### 5 5454-3 #### [facility] CLIA [id number] [address] [place] [address] [place] Potassium [Moles/Vol] 4.6 mmol/L Normal 3.7-5.1 [facility] Comment on above: Order Comment: Faith jeffries Type: BLOOD SPECIMEN Ordering Facility: [facility] Address: [address] [place] [address] Performed By: #### 5 5454-3 #### [facility] CLIA [id number] [address] [place] [address] [place] Sodium [Moles/Vol] 140 mmol/L Normal 136-144 [facility] Comment on above: Order Comment: Faith jeffries Type: BLOOD SPECIMEN Ordering Facility: [facility] Address: [address] [place] [address] Performed By: #### 5 5454-3 #### [facility] CLIA [id number] [address] [place] [address] [place] Urea nitrogen [Mass/Vol] 18 mg/dL Normal 9-24 [facility] Comment on above: Order Comment: Speci men Type: BLOOD SPECIMEN Ordering Facility: [facility] Address: [address] [place] [address] Performed By: #### 5 5454-3 #### [facility] CLIA [id number] [address] [place] [id number] [facility] CNOVon 02-05-2025 CNOV Office Visit ([facility] ) -- HENRIQUE LEVIN ([id number]) 1960 M Date Time Provider Department 02/05/25 9:00 AM ARSENIO MONIQUE [facility] During your visit today, we recorded the following information about you: Temperature Pulse Respiration Blood pressure 97.8 degrees 63/minute 16/minute 136/70 Weight Height 102.3 kg 1.765 m Arsenio Monique MD 02/05/2025 9:32 AM Addendum - Continue taking lisinopril twice daily as prescribed. - Take 2.5 mg of amlodipine daily (half of your 5 mg tablet). - Keep taking Lipitor as you?ve been doing. - If replacing the battery in your glucose meter doesn?t restore function, let us know so we can provide a new meter. - Complete the urine test tomorrow using the kidney doctor?s prescription. - Maintain your current diet changes: cut back on red meat and sugar, focus on beans, corn, tortillas, poultry, and drink plenty of water. - Track your blood sugars regularly and report any low readings or concerns. - Schedule and complete lab work in about six months (including A1c, kidney function, and lipids); we will enter the orders for you. - Proceed with your colonoscopy in as planned. [facility] TEST INFORMATION [facility] HOURS: Lab is open: 7:30am to 5:00pm M - , 7:30am to 4:00pm on Sat and 8am -12pm on Sat. The lab is located in [facility] on the first floor. There is a registration window at the lab, available 7 am to 3 pm Saturday - Saturday. If registration is unavailable at the lab, you may register at the patient registration office near the front lobby of the hospital. SCHEDULING A LAB APPOINTMENT: Laboratory appointments are recommended.Walk ins are still accepted. Call [phone] or schedule via [employer] scheduling ticket. ROUTINE LAB ORDERS 60 days after they are entered. If your lab orders , you may be required to wait in the lab while they are reinstated FUTURE ORDERS are lab tests to be completed on the ?EXPECTED? date. These orders 60 days after the expected date. STANDING ORDERS are recurring orders with an expiration date. The interval will indicate how often the test should be completed. CT / MRI / IVP If you have lab tests ordered for one of these radiology exams, please complete the blood work at least one day prior to the scheduled exam. PRESCRIPTION REFILL REQUESTS Request prescription refills through your [employer] account or contact your Pharmacy. My Chart Schedule My Appointment enables you to view your established primary care provider's open schedule and book an appointment online in real-time. This feature is available in internal medicine, family medicine, or pediatrics at any of our [facility] locations and main campus. Sandra Arreaga MA 02/05/2025 2:44 PM Signed Abdominal Aortic Aneurysm Screening Never done Depression Screening Never done Anxiety Screening Never done BP Controlled (<130/80) due on 05/10/2023 Diabetic Foot Exam due on 11/17/2023 Colorectal Cancer Screening due on 01/13/2024 Dilated Retinal Exam due on 07/05/2024 Advance Directive Discussion Never done Covid-19 Vaccine() due on 12/06/2024 Arsenio Monique MD 02/05/2025 2:44 PM Signed ESTABLISHED PATIENT Henrique Levin is a 64-year-old male with a history of HTN, DM, and hyperlipidemia, presenting for a follow-up visit. HISTORY OF PRESENT ILLNESS Hypertension: - Recently increased Lisinopril to BID dosing, x3 weeks. - Taking Amlodipine 2.5 mg daily. - Denies lower extremity edema. - Blood pressure today: 136/70 mmHg. Diabetes Mellitus: - Recent A1c: 7.4%. - Denies hypoglycemic episodes. - Monitoring blood glucose levels; unable to check this morning due to a battery in the meter. - Follow-up with nephrology pending. Hyperlipidemia: - Taking Lipitor. - Recent LDL: 40 mg/dL. Dietary Changes: - Reduced intake of beef, sugar, and carbohydrates. - Increased consumption of beans, corn tortillas, chicken, and turkey. - Drinking more water. - Lost 5 lbs recently. Upcoming Appointments: - Scheduled for a colonoscopy in July or August. - Chest CT scan scheduled for March 05. - Follow-up with hematology on the . - Eye doctor appointment in July. 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 - Planning to continue working until age 68. - Collecting Social Security benefits soon. Labs: (December) - Hemoglobin A1c: 7.4 - LDL: 40 mg/dL - Liver function: normal - Protein in urine: present ASSESSMENT AND PLAN 1. Type 2 diabetes mellitus with stage 3a chronic kidney disease, without long-term current use of insulin (HCC) (E11.22) - Hemoglobin A1c is 7.4% as of December. - Blood glucose levels are stable without hypoglycemic episodes. - Patient is monitoring dietary intake, reducing carbo (more content not included)... Normal [facility] 01-11-2025 [facility] Telephone ([facility]) -- HENRIQUE LEVIN ([id number]) 1960 M Date Time Provider Department 01/11/25 [facility] During your visit today, we recorded the following information about you: Arsenio Monique MD 01/11/2025 1:17 PM Signed Please let patient know his A1c is up a little to 7.4 and the amount of protein in his urine. Improving sugars may improve this some increasing the lisinopril. 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 For the BG does he think he can improve his diet? 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 BEFORE BEDTIME - lisinopril (ZESTRIL) 10 mg tablet Take 1 tablet by mouth two times a day. - blood sugar diagnostic (ONETOUCH VERIO TEST STRIPS) test strip Testing twice daily. Non-insulin dependent diabetes E 11.22 - lancets (ONE TOUCH DELICA) 33 gauge Use 1 Each in each nostril two times a day. - sildenafil (VIAGRA) 25 mg tablet Take 1 tablet by mouth as needed. - multivitamin tablet Take 1 tablet by mouth once daily. - amLODIPine (NORVASC) 10 mg tablet Take 2.5 mg by mouth once daily. - VITAMIN B COMPLEX-100 ORAL Take 1 tablet by mouth once daily. - Ascorbic Acid 500 mg cpER Take 1 capsule by mouth once daily. - cholecalciferol, vitamin D3, (VITAMIN D3 ORAL) Take 1,000 Units by mouth once daily. Problem List As Of Date 01/11/2025 Noted Resolved Obesity, Class II, BMI 35-39.9 [E66.812] 03/06/2018 02/10/2019 Thrombocytopenia (HCC) [D69.6] 03/19/2018 Anemia [D64.9] 03/19/2018 Obesity, Class I, BMI 30-34.9 [E66.811] 05/16/2018 History of hepatitis C [Z86.19] 08/11/2018 Type 2 diabetes mellitus with stage 3a chronic *11/21/2018 Essential hypertension [I10] 11/21/2018 Hyperlipidemia [E78.5] 11/21/2018 Tobacco use disorder [F17.200] 11/21/2018 07/22/2020 Cholecystitis [K81.9] 04/14/2022 Cirrhosis of liver without ascites, unspecified*06/07/2023 Encounter Status:Closed by ROSEMARY HURTADO on 01/11/25 Normal [facility] 25-HYDROXY D2+D3on 5 25-hydroxyvitamin D3 [Mass/Vol] 36.3 ng/mL Normal 30.0-100.0 [facility] Comment on above: Order Comment: Specjodie jeffries Type: BLOOD SPECIMEN Ordering Facility: [facility] Address: [address] [place] [address] Result Comment: Defi cient: <20.1 ng/mL Insufficient: 20.1 - 29.9 ng/mL Sufficient: 30.0 - 100.0 ng/mL Toxic: >150.0 ng/mL Reference: Christiano DOTSON, N Engl J Med (2007)[id number]:266-81 This test was developed and its performance characteristics determined by the Pathology and Laboratory Medicine [place] at the [facility]. The U.S. Food and Drug Administration has not approved or cleared this test, however, FDA clearance or approval is not currently required for clinical use. Performed By: #### D 2D3 #### [facility] CLIA [id number] [address] [place] [address] [place] Vitamin D2 [Mass/Vol] <5.0 Normal [facility] Comment on above: Order Comment: Speci men Type: BLOOD SPECIMEN Ordering Facility: [facility] Address: [address] [place] [address] Performed By: #### D 2D3 #### [facility] CLIA [id number] [address] [place] [address] [place] Vitamin D3 [Mass/Vol] 36.3 ng/mL Normal [facility] Comment on above: Order Comment: Speci men Type: BLOOD SPECIMEN Ordering Facility: [facility] Address: [address] [place] [address], [place] [address] Performed By: #### D 2D3 #### [facility] CLIA [id number] [address] [place] [address] [place] ALBUMIN/CREATININE RATIO, UR INEon 01-09-2025 Albumin DL <= 20 mg/L (U) [Mass/Vol] 323.0 mg/L Normal [facility] Comment on above: Order Comment: Speci men Type: URINE SPECIMEN Ordering Facility: [facility] Address: [address] [place] [address] Performed By: #### U ACR #### [facility] CLIA [id number] [address] [place] [address] [place] Albumin/Creatinine (U) [Mass ratio] 442 mg/g High <30 [facility] Comment on above: Order Comment: Speci men Type: URINE SPECIMEN Ordering Facility: [facility] Address: [address] [place] [address] Result Comment: Adul t Male and Female Nephrotic Criteria: <30 mg/g is considered normal to mildly increased 30-300 mg/g is considered moderately increased >300 mg/g is considered severely increased KDIGO. (2013). KDIGO 2012 Clinical Practice Guideline for the Evaluation and Management of Chronic Kidney Disease. Official Journal of the International Society of Nephrology, 3(1), 1-150. Performed By: #### U ACR #### [facility] CLIA [id number] [address] [place] [address] [place] Creatinine (U) [Mass/Vol] 73.0 mg/dL Normal 20.0-300.0 [facility] Comment on above: Order Comment: Speci men Type: URINE SPECIMEN Ordering Facility: [facility] Address: [address] [place] [address] Performed By: #### U ACR #### [facility] CLIA [id number] [address] [place] [address] [place] CBC panel Auto (Bld)on 01-09 Erythrocyte distribution width (RBC) [Ratio] 13.2 % Normal 11.5-15.0 [facility] Comment on above: Order Comment: Speci men Type: BLOOD SPECIMEN Ordering Facility: [facility] Address: [address] [place] [address] Performed By: #### 5 8410-2 #### [facility] CLIA [id number] [address] Hematocrit (Bld) [Volume fraction] 33.6 % Low 39.0-51.0 [facility] Comment on above: Order Comment: Speci men Type: BLOOD SPECIMEN Ordering Facility: [facility] Address: [address] [place] [address] Performed By: #### 5 8410-2 #### [facility] CLIA [id number] [address] [facility] Hemoglobin (Bld) [Mass/Vol] 11.5 g/dL Low 13.0-17.0 [facility] Comment on above: Order Comment: Speci men Type: BLOOD SPECIMEN Ordering Facility: [facility] Address: [address] [place] [address] Performed By: #### 5 8410-2 #### [facility] CLIA [id number] [address] [facility] MCH (RBC) [Entitic mass] 30.1 pg Normal 26.0-34.0 [facility] Comment on above: Order Comment: Speci men Type: BLOOD SPECIMEN Ordering Facility: [facility] Address: [address] [place] [address] Performed By: #### 5 8410-2 #### [facility] CLIA [id number] [address] [place] MCHC (RBC) [Mass/Vol] 34.2 g/dL Normal 30.5-36.0 [facility] Comment on above: Order Comment: Speci men Type: BLOOD SPECIMEN Ordering Facility: [facility] Address: [address] [place] [address] Performed By: #### 5 8410-2 #### [facility] CLIA [id number] [address] [place] MCV (RBC) [Entitic vol] 88.0 fL Normal 80.0-100.0 [facility] Comment on above: Order Comment: Speci men Type: BLOOD SPECIMEN Ordering Facility: [facility] Address: [address] [place] [address] Performed By: #### 5 8410-2 #### [facility] CLIA [id number] [address] [place] Nucleated RBC (Bld) [#/Vol] 10*3/uL Normal <0.01 [facility] Comment on above: Order Comment: Speci men Type: BLOOD SPECIMEN Ordering Facility: [facility] Address: [address] [place] [address] Performed By: #### 5 8410-2 #### [facility] CLIA [id number] [address] [place] Platelet mean volume (Bld) [Entitic vol] 12.0 fL Normal 9.0-12.7 [facility] Comment on above: Order Comment: Speci men Type: BLOOD SPECIMEN Ordering Facility: [facility] Address: [address] [place] [address] Performed By: #### 5 8410-2 #### [facility] CLIA [id number] [address] [place] Platelets (Bld) [#/Vol] 145 10*3/uL Low 150-400 [facility] Comment on above: Order Comment: Speci men Type: BLOOD SPECIMEN Ordering Facility: [facility] Address: [address] [place] [address] Performed By: #### 5 8410-2 #### [facility] CLIA [id number] [address] [place] [address] [place] RBC (Bld) [#/Vol] 3.82 10*6/uL Low 4.20-6.00 [facility] Comment on above: Order Comment: Speci men Type: BLOOD SPECIMEN Ordering Facility: [facility] Address: [facility] [place] [address] Performed By: #### 5 8410-2 #### [facility] CLIA [id number] [address] [place] [address] [place] WBC (Bld) [#/Vol] 5.83 10*3/uL Normal 3.70-11.00 [facility] Comment on above: Order Comment: Speci men Type: BLOOD SPECIMEN Ordering Facility: [facility] Address: [address] [place] [address] Performed By: #### 5 8410-2 #### [facility] CLIA [id number] [address] [place] Comprehensive metabolic 2000 panelon 01-09-2025 Albumin [Mass/Vol] 4.6 g/dL Normal 3.9-4.9 [facility] Comment on above: Order Comment: Speci men Type: BLOOD SPECIMEN Ordering Facility: [facility] Address: [address] [place] [address] Performed By: #### 2 4323-8, 2777-1, 84102-9 #### [facility] CLIA [id number] [address] [place] [address] [place] ALP [Catalytic activity/Vol] 84 U/L Normal 38-113 [facility] Comment on above: Order Comment: Speci men Type: BLOOD SPECIMEN Ordering Facility: [facility] Address: [address] [place] [address] Performed By: #### 2 4323-8, 2777-1, 56808-0 #### [facility] CLIA [id number] [address] [place] ALT [Catalytic activity/Vol] 34 U/L Normal 10-54 [facility] Comment on above: Order Comment: Speci men Type: BLOOD SPECIMEN Ordering Facility: [facility] Address: [address] [place] [address] Performed By: #### 2 4323-8, 2777-1, 97986-9 #### [facility] CLIA [id number] [address] [place] [address] [place] Anion gap [Moles/Vol] 9 mmol/L Normal 8-15 [facility] Comment on above: Order Comment: Speci men Type: BLOOD SPECIMEN Ordering Facility: [facility] Address: [address] [place] [address] Performed By: #### 2 4323-8, 277-, 75482-6 #### [facility] CLIA [id number] [address] [place] AST [Catalytic activity/Vol] 28 U/L Normal 14-40 [facility] Comment on above: Order Comment: Speci men Type: BLOOD SPECIMEN Ordering Facility: [facility] Address: [address] [place] [address] Performed By: #### 2 4323-8, 27703-02, 39370-1 #### [facility] CLIA [id number] [address] [place] [address] [place] Bilirubin [Mass/Vol] 0.6 mg/dL Normal 0.2-1.3 [facility] Comment on above: Order Comment: Speci men Type: BLOOD SPECIMEN Ordering Facility: [facility] Address: [address] [place] [address] Performed By: #### 2 4323-8, 27703-02, #### [facility] CLIA [id number] [address] [place] Calcium [Mass/Vol] 11.0 mg/dL High 8.5-10.2 [facility] Comment on above: Order Comment: Speci men Type: BLOOD SPECIMEN Ordering Facility: [facility] Address: [address] [place] [address] Performed By: #### 2 4323-8, 27703-02, 12143-8 #### [facility] CLIA [id number] [address] [place] [address] [place] Chloride [Moles/Vol] 107 mmol/L Normal 98-107 [facility] Comment on above: Order Comment: Speci men Type: BLOOD SPECIMEN Ordering Facility: [facility] Address: [address] [place] [address] Performed By: #### 2 4323-8, 277-1, 34893-5 #### [facility] CLIA [id number] [address] [place] [address] [place] CO2 [Moles/Vol] 23 mmol/L Normal 22-30 [facility] Comment on above: Order Comment: Faith jeffries Type: BLOOD SPECIMEN Ordering Facility: [facility] Address: [address] [place] [address] Performed By: #### 2 4323-8, 2777-1, 22574-3 #### [facility] CLIA [id number] [address] [place] Creatinine [Mass/Vol] 1.55 mg/dL High 0.73-1.22 [facility] Comment on above: Order Comment: Faith jeffries Type: BLOOD SPECIMEN Ordering Facility: [facility] Address: [address] [place] [address] Performed By: #### 2 4323-8, 2777-1, #### [facility] CLIA [id number] [address] Creatinine and Glomerular filtration rate.predicted panel (S/P/Bld) 49 mL/min/1.73m??? Low >=60 [facility] Comment on above: Order Comment: Faith jeffries Type: BLOOD SPECIMEN Ordering Facility: [facility] Address: [address] [place] [address] Result Comment: Parris mated Glomerular Filtration Rate (eGFR) is calculated using the 2020 CKD-EPI creatinine equation. This equation utilizes serum creatinine, sex, and age as parameters. The creatinine assay has traceable calibration to isotope dilution-mass spectrometry. Refer to KDIGO guidelines for clinical interpretation. In patients with unstable renal function, e.g. those with acute kidney injury, the eGFR may not accurately reflect actual GFR. Performed By: #### 2 4323-8, 2777-1, 15484-0 #### [facility] CLIA [id number] [address] [place] Glucose [Mass/Vol] 136 mg/dL High 74-99 [facility] Comment on above: Order Comment: Faith jeffries Type: BLOOD SPECIMEN Ordering Facility: [facility] Address: [address] [place] [address] Result Comment: The [place] [employer] (ADA) provides guidance for cutoff values for fasting glucose and random glucose. The ADA defines fasting as no caloric intake for at least 8 hours. Fasting plasma glucose results between 100 to 125 mg/dL indicate increased risk for diabetes (prediabetes). Fasting plasma glucose results greater than or equal to 126 mg/dL meet the criteria for diagnosis of diabetes. In the absence of unequivocal hyperglycemia, results should be confirmed by repeat testing. In a patient with classic symptoms of hyperglycemia or hyperglycemic crisis, random plasma glucose results greater than or equal to 200 mg/dL meet the criteria for diagnosis of diabetes. Reference: Standards of Medical Care in Diabetes 2016, [place] [employer] Association. Diabetes Care. 2016.39(Suppl 1). Performed By: #### 2 4323-8, 2777-1, 09694-3 #### [facility] CLIA [id number] [address] [place] [address] [place] Potassium [Moles/Vol] 4.8 mmol/L Normal 3.7-5.1 [facility] Comment on above: Order Comment: Faith jeffries Type: BLOOD SPECIMEN Ordering Facility: [facility] Address: [address] [place] [address] Performed By: #### 2 4323-8, 2777, 93022-9 #### [facility] CLIA [id number] [address] [place] [address] [place] [facility] Protein [Mass/Vol] 7.6 g/dL Normal 6.3-8.0 [facility] Comment on above: Order Comment: Faith jeffries Type: BLOOD SPECIMEN Ordering Facility: [facility] Address: [address] [place] [address] Performed By: #### 2 4323-8, 2777, 19368-7 #### [facility] CLIA [id number] [address] [place] [address] [place] Sodium [Moles/Vol] 139 mmol/L Normal 136-144 [facility] Comment on above: Order Comment: Faith jeffries Type: BLOOD SPECIMEN Ordering Facility: [facility] Address: [address] [place] [address] Performed By: #### 2 4323-8, 2777-, 52379-0 #### [facility] CLIA [id number] [address] [place] [address] [place] Urea nitrogen [Mass/Vol] 19 mg/dL Normal 9-24 [facility] Comment on above: Order Comment: Faith jeffries Type: BLOOD SPECIMEN Ordering Facility: [facility] Address: [address] [place] [address] Performed By: #### 2 4323-8, 2777-1, 79386-6 #### [facility] CLIA [id number] [address] [place] [address] [place] HbA1c (Bld)on 01-09-2025 Average glucose Estimated from glycated hemoglobin (Bld) [Mass/Vol] 166 mg/dL Normal [facility] Comment on above: Order Comment: Faith jeffries Type: BLOOD SPECIMEN Ordering Facility: [facility] Address: [address] [place] [address] Result Comment: eAG: (Estimated average glucose) is a calculated value from HgbA1c and is scheduling representative of the average blood glucose level in the last 2-3 month period. Performed By: #### 5 5454-3 #### [facility] CLIA [id number] [address] [place] [address] [place] HbA1c (Bld) [Mass fraction] 7.4 % High 4.3-5.6 [facility] Comment on above: Order Comment: Faith jeffries Type: BLOOD SPECIMEN Ordering Facility: [facility] Address: [address] [place] [address] Result Comment: [place] Diabetes Association guidelines indicate that patients with HgbA1c in the range 5.7-6.4% are at increased risk for development of diabetes, and intervention by lifestyle modification may be beneficial. HgbA1c greater or equal to 6.5% is considered diagnostic of diabetes. Performed By: #### 5 5454-3 #### [facility] CLIA [id number] [address] [place] [address] [place] Lipid 1996 panelon 5 Cholesterol [Mass/Vol] 109 mg/dL Normal <200 [facility] Comment on above: Order Comment: Faith jeffries Type: BLOOD SPECIMEN Ordering Facility: [facility] Address: [address] [place] [address] Result Comment: <200 mg/dL, Desirable 200-239 mg/dL, Borderline high >239 mg/dL, High Performed By: #### 2 4323-8, 2777-, 02849-9 #### [facility] CLIA [id number] [address] Cholesterol in HDL [Mass/Vol] 39 mg/dL Low >39 [facility] Comment on above: Order Comment: Faith jeffries Type: BLOOD SPECIMEN Ordering Facility: [facility] Address: [address] [place] [address] Result Comment: 40-5 9 mg/dL, Acceptable >59 mg/dL, High: Negative risk factor for coronary heart disease <40 mg/dL, Low: Positive risk factor for coronary heart disease Performed By: #### 2 4323-8, 2777, #### [facility] CLIA [id number] [address] Cholesterol in LDL [Mass/Vol] 40 mg/dL Normal <100 [facility] Comment on above: Order Comment: Faith jeffries Type: BLOOD SPECIMEN Ordering Facility: [facility] Address: [address] [place] [address] Result Comment: <100 mg/dL, Optimal 100-129 mg/dL, Near optimal/above optimal 130-159 mg/dL, Borderline high 160-189 mg/dL, High >189 mg/dL, Very high Secondary prevention optimal LDL Cholesterol levels are recommended to be <70 mg/dL LDL cholesterol is calculated using the Pickett-NIH equation. Performed By: #### 2 4323-8, 2777, #### [facility] CLIA [id number] [address] Cholesterol in LDL/Cholesterol in HDL [Mass ratio] 1.03 {ratio} Normal <2.54 [facility] Comment on above: Order Comment: Faith jeffries Type: BLOOD SPECIMEN Ordering Facility: [facility] Address: [address] [place] [address] Result Comment: Refe fabiano: 1. National Cholesterol Education Program ATP III Guideline At-A-Glance Quick Desk Reference: National Heart, Lung, and Blood [place]. National Institutes of Health. 2001: NIH Publication No. 01-3305. 2. An International Atherosclerosis Society position paper: global recommendations for the management of dyslipidemia: executive summary, Atherosclerosis. 2014: 232(2):410-413. Performed By: #### 2 4323-8, 2777-1, 68506-2 #### [facility] CLIA [id number] [address] Cholesterol in VLDL [Mass/Vol] 25 mg/dL Normal <30 [facility] Comment on above: Order Comment: Faith jeffries Type: BLOOD SPECIMEN Ordering Facility: [facility] Address: [address] [place] [address] Performed By: #### 2 4323-8, 2776-, 91086-4 #### [facility] CLIA [id number] [address] Cholesterol non HDL [Mass/Vol] 70 mg/dL Normal <130 [facility] Comment on above: Order Comment: Faith jeffries Type: BLOOD SPECIMEN Ordering Facility: [facility] Address: [address] [place] [address] Result Comment: <130 mg/dL, Optimal 130-159 mg/dL, Near optimal/above optimal 160-189 mg/dL, Borderline high 190-219 mg/dL, High >219 mg/dL, Very high Secondary prevention optimal non HDL Cholesterol levels are recommended to be <100 mg/dL Performed By: #### 2 4323-8, 2776-1, 87551-2 #### [facility] CLIA [id number] [address] Cholesterol.total/Chol esterol in HDL [Mass ratio] 2.79 {ratio} Normal <5.10 [facility] Comment on above: Order Comment: Faith jeffries Type: BLOOD SPECIMEN Ordering Facility: [facility] Address: [address] [place] [address] Performed By: #### 2 4323-8, 2777-1, 71644-8 #### [facility] CLIA [id number] [address] FASTING TIME 12 hrs Normal [facility] Comment on above: Order Comment: Speci men Type: BLOOD SPECIMEN Ordering Facility: [facility] Address: [address] [place] [address] Performed By: #### 2 4323-8, 2777-1, 76718-1 #### [facility] CLIA [id number] [address] [place] [address] [place] Triglyceride [Mass/Vol] 185 mg/dL High <150 [facility] Comment on above: Order Comment: Speci men Type: BLOOD SPECIMEN Ordering Facility: [facility] Address: [address] [place], [place] [id number] Result Comment: <150 mg/dL, Normal 150-199 mg/dL, Borderline high 200-499 mg/dL, High >499 mg/dL, Very high Performed By: #### 2 4323-8, 2777-1, 54088-8 #### [facility] CLIA [id number] [address] [place] [address] [place] PTH-Intact SerPl-mCncon 05- Parathyrin.intact [Mass/Vol] 105 pg/mL High 15-65 [facility] Comment on above: Order Comment: Speci men Type: BLOOD SPECIMEN Ordering Facility: [facility] Address: [address] [place] [address] Performed By: #### 2 731-8 #### [facility] CLIA [id number] [address] [place], [place] [address] [place] Phosphate SerPl-mCncon 01-09 Phosphate [Mass/Vol] 2.7 mg/dL Normal 2.7-4.8 [facility] Comment on above: Order Comment: Speci men Type: BLOOD SPECIMEN Ordering Facility: [facility] Address: [address] [place] [address] Performed By: #### 2 4323-8, 2777-1, 72403-3 #### [facility] CLIA [id number] [address] [place] [address] [place] Basic metabolic 2000 panelon 08-14-2024 Anion gap [Moles/Vol] 12 mmol/L 8 - 15 mmol/L [facility] Calcium [Mass/Vol] 10.3 mg/dL High 8.5 - 10. 2 mg/dL [facility] Chloride [Moles/Vol] 106 mmol/L 98 - 10 7 mmol/L [facility] CO2 [Moles/Vol] 21 mmol/L Low 22 - 30 mmol/L [facility] Creatinine [Mass/Vol] 1.68 mg/dL High 0.73 - 1.22 mg/dL [facility] GFR/1.73 sq M.predicted among non-blacks MDRD (S/P/Bld) [Vol rate/Area] 45 mL/min/{1.73_m2} Low - PINF [facility] Comment on above: Estimated Glomerular Filtration Rate (eGFR) is calculated using the 2020 CKD-EPI creatinine equation. This equation utilizes serum creatinine, sex, and age as parameters. The creatinine assay has traceable calibration to isotope dilution-mass spectrometry. Refer to KDIGO guidelines for clinical interpretation. In patients with unstable renal function, e.g. those with acute kidney injury, the eGFR may not accurately reflect actual GFR. Glucose [Mass/Vol] 133 mg/dL High 74 - 99 mg/dL [facility] Comment on above: The [place] Diabete s Association (ADA) provides guidance for cutoff values for fasting glucose and random glucose. The ADA defines fasting as no caloric intake for at least 8 hours. Fasting plasma glucose results between 100 to 125 mg/dL indicate increased risk for diabetes (prediabetes). Fasting plasma glucose results greater than or equal to 126 mg/dL meet the criteria for diagnosis of diabetes. In the absence of unequivocal hyperglycemia, results should be confirmed by repeat testing. In a patient with classic symptoms of hyperglycemia or hyperglycemic crisis, random plasma glucose results greater than or equal to 200 mg/dL meet the criteria for diagnosis of diabetes. Reference: Standards of Medical Care in Diabetes 2016, [place] Diabetes Association. Diabetes Care. 2016.39(Suppl 1). Potassium [Moles/Vol] 5.2 mmol/L High 3.7 - 5.1 mmol/L [facility] Sodium [Moles/Vol] 139 mmol/L 136 - 144 mmol/L [facility] Urea nitrogen [Mass/Vol] 27 mg/dL High 9 - 24 mg/dL [facility] Anion gap [Moles/Vol] 12 mmol/L Normal 8-15 [facility] Comment on above: Order Comment: Speci men Type: BLOOD SPECIMEN Ordering Facility: [facility] Address: [address] [place] [address] Performed By: #### 2 4321-2, 21330-6 #### [facility] CLIA [id number] [address] [place] [address] [place] Calcium [Mass/Vol] 10.3 mg/dL High 8.5-10.2 [facility] Comment on above: Order Comment: Speci men Type: BLOOD SPECIMEN Ordering Facility: [facility] Address: [address] [place] [address] Performed By: #### 2 4321-2, 32445-0 #### [facility] CLIA [id number] [address] [place] [address] [place] Chloride [Moles/Vol] 106 mmol/L Normal 98-107 [facility] Comment on above: Order Comment: Speci men Type: BLOOD SPECIMEN Ordering Facility: [facility] Address: [address] [place] [address] Performed By: #### 2 4320-2, 68862-8 #### [facility] CLIA [id number] [address] [place] [address] [place] CO2 [Moles/Vol] 21 mmol/L Low 22-30 [facility] Comment on above: Order Comment: Speci men Type: BLOOD SPECIMEN Ordering Facility: [facility] Address: [address] [place] [address] Performed By: #### 2 4320-2, 14303-8 #### [facility] CLIA [id number] [address] [place] [address] [place] Creatinine [Mass/Vol] 1.68 mg/dL High 0.73-1.22 [facility] Comment on above: Order Comment: Speci men Type: BLOOD SPECIMEN Ordering Facility: [facility] Address: [address] [place] [address] Performed By: #### 2 432-2, 95414-0 #### [facility] CLIA [id number] [address] [place] [address] [place] Creatinine and Glomerular filtration rate.predicted panel (S/P/Bld) 45 mL/min/1.73m??? Low >=60 [facility] Comment on above: Order Comment: Faith jeffries Type: BLOOD SPECIMEN Ordering Facility: [facility] Address: [address] [place] [address] Result Comment: Parris mated Glomerular Filtration Rate (eGFR) is calculated using the 2020 CKD-EPI creatinine equation. This equation utilizes serum creatinine, sex, and age as parameters. The creatinine assay has traceable calibration to isotope dilution-mass spectrometry. Refer to KDIGO guidelines for clinical interpretation. In patients with unstable renal function, e.g. those with acute kidney injury, the eGFR may not accurately reflect actual GFR. Performed By: #### 2 4321-2, 75636-7 #### [facility] CLIA [id number] [address] [place] [address] [place] Glucose [Mass/Vol] 133 mg/dL High 74-99 [facility] Comment on above: Order Comment: Faith jeffries Type: BLOOD SPECIMEN Ordering Facility: [facility] Address: [address] [place] [address] Result Comment: The [place] Diabetes Association (ADA) provides guidance for cutoff values for fasting glucose and random glucose. The ADA defines fasting as no caloric intake for at least 8 hours. Fasting plasma glucose results between 100 to 125 mg/dL indicate increased risk for diabetes (prediabetes). Fasting plasma glucose results greater than or equal to 126 mg/dL meet the criteria for diagnosis of diabetes. In the absence of unequivocal hyperglycemia, results should be confirmed by repeat testing. In a patient with classic symptoms of hyperglycemia or hyperglycemic crisis, random plasma glucose results greater than or equal to 200 mg/dL meet the criteria for diagnosis of diabetes. Reference: Standards of Medical Care in Diabetes 2016, [place] [employer] Association. Diabetes Care. 2016.39(Suppl 1). Performed By: #### 2 4321-2, 09908-5 #### [facility] CLIA [id number] [address] [place] [address] [place] Potassium [Moles/Vol] 5.2 mmol/L High 3.7-5.1 [facility] Comment on above: Order Comment: Faith jeffries Type: BLOOD SPECIMEN Ordering Facility: [facility] Address: [address] [place] [address] Performed By: #### 2 4321-2, 92280-5 #### [facility] CLIA [id number] [address] Sodium [Moles/Vol] 139 mmol/L Normal 136-144 [facility] Comment on above: Order Comment: Speci men Type: BLOOD SPECIMEN Ordering Facility: [facility] Address: [address] [place] [address] Performed By: #### 2 4321-2, 40987-4 #### [facility] CLIA [id number] [address] STATES [facility] Urea nitrogen [Mass/Vol] 27 mg/dL High 9-24 [facility] Comment on above: Order Comment: Speci men Type: BLOOD SPECIMEN Ordering Facility: [facility] Address: [address] [place] [address] Performed By: #### 2 4321-2, 61993-1 #### [facility] CLIA [id number] [address] [facility] Lipid 1996 panelon 4 Cholesterol [Mass/Vol] 117 mg/dL NINF - 200 mg/dL [facility] Comment on above: <200 mg/dL, Desirabl e 200-239 mg/dL, Borderline high >239 mg/dL, High Cholesterol in HDL [Mass/Vol] 40 mg/dL 39 - PINF mg/dL [facility] Comment on above: 40-59 mg/dL, Accepta ble >59 mg/dL, High: Negative risk factor for coronary heart disease <40 mg/dL, Low: Positive risk factor for coronary heart disease Cholesterol in LDL [Mass/Vol] 43 mg/dL NINF - 100 mg/dL [facility] Comment on above: <100 mg/dL, Optimal 100-129 mg/dL, Near optimal/above optimal 130-159 mg/dL, Borderline high 160-189 mg/dL, High >189 mg/dL, Very high Secondary prevention optimal LDL Cholesterol levels are recommended to be < 70 mg/dL Cholesterol in LDL/Cholesterol in HDL [Mass ratio] 1.08 {ratio} NINF - 2.54 [facility] Comment on above: Reference: 1. National Cholesterol Education Program ATP III Guideline At-A-Glance Quick Desk Reference: National Heart, Lung, and Blood [place]. National Institutes of Health. 2001: NIH Publication No. 01-3305. 2. An International Atherosclerosis Society position paper: global recommendations for the management of dyslipidemia: executive summary, Atherosclerosis. 2014: 232(2):410-413. Cholesterol in VLDL [Mass/Vol] 34 mg/dL High NINF - 30 mg/dL [facility] Cholesterol non HDL [Mass/Vol] 77 mg/dL NINF - 130 mg/dL [facility] Comment on above: <130 mg/dL, Optimal 130-159 mg/dL, Near optimal/above optimal 160-189 mg/dL, Borderline high 190-219 mg/dL, High >219 mg/dL, Very high Secondary prevention optimal non HDL Cholesterol levels are recommended to be <100 mg/dL Cholesterol.total/Chol esterol in HDL [Mass ratio] 2.93 {ratio} NINF - 5.10 [facility] Fasting Time 15 hrs [facility] Triglyceride [Mass/Vol] 170 mg/dL High NINF - 150 mg/dL [facility] Comment on above: <150 mg/dL, Normal 150-199 mg/dL, Borderline high 200-499 mg/dL, High >499 mg/dL, Very high Cholesterol [Mass/Vol] 117 mg/dL Normal <200 [facility] Comment on above: Order Comment: Faith jeffries Type: BLOOD SPECIMEN Ordering Facility: [facility] Address: [address] [place] [address] Result Comment: <200 mg/dL, Desirable 200-239 mg/dL, Borderline high >239 mg/dL, High Performed By: #### 2 4321-2, 95704-4 #### [facility] CLIA [id number] [address] [place], [place] [id number] [place] [address] [address] [facility] Cholesterol in HDL [Mass/Vol] 40 mg/dL Normal >39 [facility] Comment on above: Order Comment: Faith jeffries Type: BLOOD SPECIMEN Ordering Facility: [facility] Address: [address] [place] [address] Result Comment: 40-5 9 mg/dL, Acceptable >59 mg/dL, High: Negative risk factor for coronary heart disease <40 mg/dL, Low: Positive risk factor for coronary heart disease Performed By: #### 2 4321-2, 02950-2 #### [facility] CLIA [id number] [address] Cholesterol in LDL [Mass/Vol] 43 mg/dL Normal <100 [facility] Comment on above: Order Comment: Faith mervin Type: BLOOD SPECIMEN Ordering Facility: [facility] Address: [address] [place] [address] Result Comment: <100 mg/dL, Optimal 100-129 mg/dL, Near optimal/above optimal 130-159 mg/dL, Borderline high 160-189 mg/dL, High >189 mg/dL, Very high Secondary prevention optimal LDL Cholesterol levels are recommended to be < 70 mg/dL Performed By: #### 2 4320-2, 47161-1 #### [facility] CLIA [id number] [address] Cholesterol in LDL/Cholesterol in HDL [Mass ratio] 1.08 {ratio} Normal <2.54 [facility] Comment on above: Order Comment: Faith jeffries Type: BLOOD SPECIMEN Ordering Facility: [facility] Address: [address] [place] [address] Result Comment: Refe rence: 1. National Cholesterol Education Program ATP III Guideline At-A-Glance Quick Desk Reference: National Heart, Lung, and Blood [place]. National Institutes of Health. 2001: NIH Publication No. 01-3305. 2. An International Atherosclerosis Society position paper: global recommendations for the management of dyslipidemia: executive summary, Atherosclerosis. 2014: 232(2):410-413. Performed By: #### 2 4320-2, 52816-9 #### [facility] CLIA [id number] [address] Cholesterol in VLDL [Mass/Vol] 34 mg/dL High <30 [facility] Comment on above: Order Comment: Faith mervin Type: BLOOD SPECIMEN Ordering Facility: [facility] Address: [address] [place] [address] Performed By: #### 2 432-2, 51017-4 #### [facility] CLIA [id number] [address] [place] Cholesterol non HDL [Mass/Vol] 77 mg/dL Normal <130 [facility] Comment on above: Order Comment: Faith jeffries Type: BLOOD SPECIMEN Ordering Facility: [facility] Address: [address] [place] [address] Result Comment: <130 mg/dL, Optimal 130-159 mg/dL, Near optimal/above optimal 160-189 mg/dL, Borderline high 190-219 mg/dL, High >219 mg/dL, Very high Secondary prevention optimal non HDL Cholesterol levels are recommended to be <100 mg/dL Performed By: #### 2 4321-2, 16854-8 #### [facility] CLIA [id number] [address] Cholesterol.total/Chol esterol in HDL [Mass ratio] 2.93 {ratio} Normal <5.10 [facility] Comment on above: Order Comment: Faith jeffries Type: BLOOD SPECIMEN Ordering Facility: [facility] Address: [address] [place] [address] Performed By: #### 2 4321-2, 98828-5 #### [facility] CLIA [id number] [address] FASTING TIME 15 hrs Normal [facility] Comment on above: Order Comment: Faith jeffries Type: BLOOD SPECIMEN Ordering Facility: [facility] Address: [address] [place] [address] Performed By: #### 2 4321-2, 13417-1 #### [facility] CLIA [id number] [address] Triglyceride [Mass/Vol] 170 mg/dL High <150 [facility] Comment on above: Order Comment: Faith mervin Type: BLOOD SPECIMEN Ordering Facility: [facility] Address: [address] [place] [address] Result Comment: <150 mg/dL, Normal 150-199 mg/dL, Borderline high 200-499 mg/dL, High >499 mg/dL, Very high Performed By: #### 2 4321-2, 94640-8 #### [facility] CLIA [id number] [address] No Panel Informationon 08-14 Interpretation and review of laboratory results Abnormal [facility] CNPNon 08-12-2024 CNPN Telephone (IMMDNA) -- HENRIQUE LEVIN ([id number]) 1960 M Date Time Provider Department 08/12/24 ARSENIO MONIQUE [place] During your visit today, we recorded the following information about you: Og Anaya Camelia Rachel 08/12/2024 8:40 AM Signed Aniyah is calling Arsenio Monique MD today to request Lab Orders (for the employer) Patient has forms and will drop off when they come for their labs. Lab orders: Triglycerides MG Glucose HDL Total cholesterol LDL Also needs diastolic BP Please call when orders are placed Patient has been identified by name and birthdate. Duration of symptoms: N/A Person calling: self Call patient at: at home [phone] (home) [phone] (cell) Was an appointment scheduled: No Closing statement: Camelia M Og Anaya [phone] Arsenio Monique MD 08/13/2024 12:55 PM Signed Labs ordered MD Keaton Bhagat Lauren 08/14/2024 9:31 AM Signed Patient stopped in on his way to the Lab. Dropped off paperwork for employer/insurance. Patient is asking when paperwork is completed and sent in that a copy be mailed to his home address to retain for his records. Form has been placed in Mail Box, Sandra Mcrae MA 08/17/2024 9:56 AM Signed I called pt and left detailed message We need a waist circumference to complete the form Placed on providers desk for review Sandra Arreaga MA 08/22/2024 9:45 AM Signed Faxed form to [employer] and mailed original to pt home and kept a copy for our records Allergies As of Date: 08/12/2024 Noted Allergy Reaction SULFA (SULFONAMIDE ANTIBIOTICS) 04/20/2016 16 - Unknown Date Reviewed: 07/31/2024 Reviewed by: Sandra Arreaga MA - Fully Assessed Reason for Visit: Lab Orders [6228] Cmt: Work request Primary Visit Diagnosis:Essential hypertension [I10] Order(s):LIPID PANEL BASIC [SQLIPB] Order #: [id number] FUTURE BASIC METABOLIC PANEL [SQBMP] Order #: [id number] FUTURE Prescriptions as of 09/01/2024 - atorvastatin (LIPITOR) 80 mg tablet Take 1 tablet by mouth once daily. BEFORE BEDTIME - lisinopril (ZESTRIL) 10 mg tablet Take 1 tablet by mouth two times a day. - blood sugar diagnostic ([employer] VERIO TEST STRIPS) test strip Testing twice daily. Non-insulin dependent diabetes E 11.22 - lancets (ONE TOUCH DELICA) 33 gauge Use 1 Each in each nostril two times a day. - sildenafil (VIAGRA) 25 mg tablet Take 1 tablet by mouth as needed. - multivitamin tablet Take 1 tablet by mouth once daily. - amLODIPine (NORVASC) 10 mg tablet Take 2.5 mg by mouth once daily. - VITAMIN B COMPLEX-100 ORAL Take 1 tablet by mouth once daily. - Ascorbic Acid 500 mg cpER Take 1 capsule by mouth once daily. - cholecalciferol, vitamin D3, (VITAMIN D3 ORAL) Take 1,000 Units by mouth once daily. Problem List As Of Date 08/12/2024 Noted Resolved Obesity, Class II, BMI 35-39.9 [E66.812] 03/06/2018 02/10/2019 Thrombocytopenia (HCC) [D69.6] 03/19/2018 Anemia [D64.9] 03/19/2018 Obesity, Class I, BMI 30-34.9 [E66.811] 05/16/2018 History of hepatitis C [Z86.19] 08/11/2018 Type 2 diabetes mellitus with stage 3a chronic *11/21/2018 Essential hypertension [I10] 11/21/2018 Hyperlipidemia [E78.5] 11/21/2018 Tobacco use disorder [F17.200] 11/21/2018 07/22/2020 Cholecystitis [K81.9] 04/14/2022 Cirrhosis of liver without ascites, unspecified*06/07/2023 Encounter Status:Closed by SANDRA ARREAGA on 08/22/24 Normal [facility] ALBUMIN/CREATININE RATIO, UR INEon 08-07-2024 Albumin Unsp time DL <= 20 mg/L (U) [Mass/Time] 260.7 mg/L Normal [facility] Comment on above: Order Comment: Speci men Type: URINE SPECIMEN Ordering Facility: [facility] Address: [address] [place] [address] Performed By: #### U ACR #### [facility] CLIA [id number] [address] [place] Albumin/Creatinine (U) [Mass ratio] 186 mg/g High <30 [facility] Comment on above: Order Comment: Speci men Type: URINE SPECIMEN Ordering Facility: [facility] Address: [address] [place] [address] Result Comment: Adul t Male and Female Nephrotic Criteria: <30 mg/g is considered normal to mildly increased 30-300 mg/g is considered moderately increased >300 mg/g is considered severely increased KDIGO. (2013). KDIGO 2012 Clinical Practice Guideline for the Evaluation and Management of Chronic Kidney Disease. Official Journal of the International Society of Nephrology, 3(1), 1-150. Performed By: #### U ACR #### [facility] CLIA [id number] 1 [place] [address] [place] Creatinine (U) [Mass/Vol] 139.8 mg/dL Normal 46.8-314.5 [facility] Comment on above: Order Comment: Speci men Type: URINE SPECIMEN Ordering Facility: [facility] Address: [address] [place] [address] Performed By: #### U ACR #### [facility] CLIA [id number] 1 [place] [address] [place] 25(OH)D3 SerP-ncon 2023 25-hydroxyvitamin D3 [Mass/Vol] 45.4 ng/mL Normal >=30.0 [facility] Comment on above: Order Comment: Speci men Type: BLOOD SPECIMEN Ordering Facility: [facility] Address: [address] [place] [address], [place] [address] Result Comment: Clas sification of 25 [place] Vitamin D status: Deficiency: <= 20.0 ng/ml. Insufficiency: 21.0-29.0 ng/ml. Sufficiency: >= 30.0 ng/ml. Performed By: #### 1 989-3 #### [facility] CLIA [id number] [address] [facility] CBC panel Auto (Bld)on 08-05 Erythrocyte distribution width (RBC) [Ratio] 13.2 % Normal 11.5-15.0 [facility] Comment on above: Order Comment: Speci men Type: BLOOD SPECIMEN Ordering Facility: [facility] Address: [address] [place] [address], [place] [address] Performed By: #### 5 8410-2, WAMMR #### [facility] CLIA [id number] [address] [place] [address] [place] Hematocrit (Bld) [Volume fraction] 34.2 % Low 39.0-51.0 [facility] Comment on above: Order Comment: Speci men Type: BLOOD SPECIMEN [facility]ing Facility: [facility] Address: [address] [place] [address], [place] [address] Performed By: #### 5 8410-2, WAMMR #### [facility] CLIA [id number] [address] [place] [address] [place] Hemoglobin (Bld) [Mass/Vol] 11.3 g/dL Low 13.0-17.0 [facility] Comment on above: Order Comment: Speci men Type: BLOOD SPECIMEN [facility]ing Facility: [facility] Address: [address] [place] [address], [place] [address] Performed By: #### 5 8410-2, WAMMR #### [facility] CLIA [id number] [address] [place] [address] [place] MCH (RBC) [Entitic mass] 30.6 pg Normal 26.0-34.0 [facility] Comment on above: Order Comment: Speci men Type: BLOOD SPECIMEN Ordering Facility: [facility] Address: [address] [place] [address] [place] [address] Performed By: #### 5 8410-2, WAMMR #### [facility] CLIA [id number] [address] [place] [address] [place] MCHC (RBC) [Mass/Vol] 33.0 g/dL Normal 30.5-36.0 [facility] Comment on above: Order Comment: Speci men Type: BLOOD SPECIMEN Ordering Facility: [facility] Address: [address] [place] [address] [place] [address] Performed By: #### 5 8410-2, WAMMR #### [facility] CLIA [id number] [address] [place] [address] [place] MCV (RBC) [Entitic vol] 92.7 fL Normal 80.0-100.0 [facility] Comment on above: Order Comment: Speci men Type: BLOOD SPECIMEN Ordering Facility: [facility] Address: [address] [place] [address] [place] [address] Performed By: #### 5 8410-2, WAMMR #### [facility] CLIA [id number] [address] [place] [address] [place] Platelet mean volume (Bld) [Entitic vol] 12.7 fL Normal 9.0-12.7 [facility] Comment on above: Order Comment: Speci men Type: BLOOD SPECIMEN Ordering Facility: [facility] Address: [address] [place] [address] [place] [address] Performed By: #### 5 8410-2, WAMMR #### [facility] CLIA [id number] [address] [place] [address] [facility] [place] Platelets (Bld) [#/Vol] 142 10*3/uL Low 150-400 [facility] Comment on above: Order Comment: Speci men Type: BLOOD SPECIMEN Ordering Facility: [facility] Address: [address] [place] [address] [place] [address] Result Comment: No c lot detected. Performed By: #### 5 8410-2, WAMMR #### [facility] CLIA [id number] [address] [place] [address] [place] RBC (Bld) [#/Vol] 3.69 10*6/uL Low 4.20-6.00 [facility] Comment on above: Order Comment: Speci men Type: BLOOD SPECIMEN Ordering Facility: [facility] Address: [address] [place] [address] [place] [address] Performed By: #### 5 8410-2, WAMMR #### [facility] CLIA [id number] [address] [place] [address] [place] WBC (Bld) [#/Vol] 5.96 10*3/uL Normal 3.70-11.00 [facility] Comment on above: Order Comment: Speci men Type: BLOOD SPECIMEN Ordering Facility: [facility] Address: [address] [place] [address], [place] [address] Performed By: #### 5 8410-2, WAMMR #### [facility] CLIA [id number] [address] [place] [address] [place] MORPH WAM REFLEXon Giant platelets LM Ql (Bld) Occasional Normal [facility] Comment on above: Order Comment: Speci men Type: BLOOD SPECIMEN Ordering Facility: [facility] Address: [address] [place] [address], [place] [address] Performed By: #### 5 8410-2, WAMMR #### [facility] CLIA [id number] [address] [place] [address] [place] Platelets Estimate (Bld) [#/Vol] Adequate Normal [facility] Comment on above: Order Comment: Speci men Type: BLOOD SPECIMEN Ordering Facility: [facility] Address: [address] [place] [address], [place] [address] Performed By: #### 5 8410-2, WAMMR #### [facility] CLIA [id number] [address] [place] [address] [place] PTH-Intact SerPl-mCncon 12-0 Parathyrin.intact [Mass/Vol] 122 pg/mL High 15-65 [facility] Comment on above: Order Comment: Speci men Type: BLOOD SPECIMEN Ordering Facility: [facility] Address: [address] [place] [address] Result Comment: Test methodology for this assay has moved from Siemens Centaur XP to Jostin nathaly 8000 effective June 05, 2022. Please note there may be a change in the reporting units and/or reference range. Performed By: #### 2 731-8 #### [facility] CLIA [id number] 1 [place] [address] [place] Renal function 2000 panelon 08-05-2024 Albumin [Mass/Vol] 4.4 g/dL Normal 3.9-4.9 [facility] Comment on above: Order Comment: Speci men Type: BLOOD SPECIMEN Ordering Facility: [facility] Address: [address] [place] [address], [place] [address] Performed By: #### 2 4362-6 #### [facility] CLIA [id number] [address] [place] [address] [place] Anion gap [Moles/Vol] 12 mmol/L Normal 8-15 [facility] Comment on above: Order Comment: Speci men Type: BLOOD SPECIMEN Ordering Facility: [facility] Address: [address] [place] [address] Performed By: #### 2 4362-6 #### [facility] CLIA [id number] [address] [place] [address] [place] Calcium [Mass/Vol] 10.3 mg/dL High 8.5-10.2 [facility] Comment on above: Order Comment: Speci men Type: BLOOD SPECIMEN Ordering Facility: [facility] Address: [address] [place] [address], [place] [address] Performed By: #### 2 4362-6 #### [facility] CLIA [id number] [address] [place] [address] [place] Chloride [Moles/Vol] 107 mmol/L Normal 98-107 [facility] Comment on above: Order Comment: Speci men Type: BLOOD SPECIMEN Ordering Facility: [facility] Address: [address] [place] [address], [place] [address] Performed By: #### 2 4362-6 #### [facility] CLIA [id number] [address] [place] [address] [place] CO2 [Moles/Vol] 20 mmol/L Low 22-30 [facility] Comment on above: Order Comment: Speci men Type: BLOOD SPECIMEN Ordering Facility: [facility] Address: [address] [place] [address], [place] [address] Performed By: #### 2 4362-6 #### [facility] CLIA [id number] [address] [place] [address] [place] Creatinine [Mass/Vol] 1.52 mg/dL High 0.73-1.22 [facility] Comment on above: Order Comment: Speci men Type: BLOOD SPECIMEN Ordering Facility: [facility] Address: [address] [place] [address], [place] [address] Performed By: #### 2 4362-6 #### [facility] CLIA [id number] [address] [place] [address] [place] Creatinine and Glomerular filtration rate.predicted panel (S/P/Bld) 50 mL/min/1.73m??? Low >=60 [facility] Comment on above: Order Comment: Speci men Type: BLOOD SPECIMEN Ordering Facility: [facility] Address: [address] [place] [address], [place] [address] Result Comment: Parris mated Glomerular Filtration Rate (eGFR) is calculated using the 2020 CKD-EPI creatinine equation. This equation utilizes serum creatinine, sex, and age as parameters. The creatinine assay has traceable calibration to isotope dilution-mass spectrometry. Refer to KDIGO guidelines for clinical interpretation. In patients with unstable renal function, e.g. those with acute kidney injury, the eGFR may not accurately reflect actual GFR. Performed By: #### 2 4362-6 #### [facility] CLIA [id number] [address] [place] [address] [place] Glucose [Mass/Vol] 216 mg/dL High 74-99 [facility] Comment on above: Order Comment: Godfreyjodie jeffries Type: BLOOD SPECIMEN Ordering Facility: [facility] Address: [address] [place] [address] Result Comment: The [place] Diabetes Association (ADA) provides guidance for cutoff values for fasting glucose and random glucose. The ADA defines fasting as no caloric intake for at least 8 hours. Fasting plasma glucose results between 100 to 125 mg/dL indicate increased risk for diabetes (prediabetes). Fasting plasma glucose results greater than or equal to 126 mg/dL meet the criteria for diagnosis of diabetes. In the absence of unequivocal hyperglycemia, results should be confirmed by repeat testing. In a patient with classic symptoms of hyperglycemia or hyperglycemic crisis, random plasma glucose results greater than or equal to 200 mg/dL meet the criteria for diagnosis of diabetes. Reference: Standards of Medical Care in Diabetes 2016, [place] [employer] Association. Diabetes Care. 2016.39(Suppl 1). Performed By: #### 2 4362-6 #### [facility] CLIA [id number] [address] [place] [address] [place] Phosphate [Mass/Vol] 2.7 mg/dL Normal 2.7-4.8 [facility] Comment on above: Order Comment: Godfreyjodie jeffries Type: BLOOD SPECIMEN Ordering Facility: [facility] Address: [address] [place], [place] [address] Performed By: #### 2 4362-6 #### [facility] CLIA [id number] [address] [place] [address] [place] Potassium [Moles/Vol] 4.7 mmol/L Normal 3.7-5.1 [facility] Comment on above: Order Comment: Faith mervin Type: BLOOD SPECIMEN Ordering Facility: [facility] Address: [address] [place] [address] Performed By: #### 2 4362-6 #### [facility] CLIA [id number] [address] [place] [address] [place] Sodium [Moles/Vol] 139 mmol/L Normal 136-144 [facility] Comment on above: Order Comment: Speci men Type: BLOOD SPECIMEN Ordering Facility: [facility] Address: [address] [place], [place] [address], [place] [address] Performed By: #### 2 4362-6 #### [facility] CLIA [id number] [address] [place] [address] [place] Urea nitrogen [Mass/Vol] 22 mg/dL Normal 9-24 [facility] Comment on above: Order Comment: Speci men Type: BLOOD SPECIMEN Ordering Facility: [facility] Address: [address] [place], [place] [address], [place] [address] Performed By: #### 2 4362-6 #### [facility] CLIA [id number] [address] [place] [address] [place] CNOVon 07-31-2024 CNOV Office Visit ([facility] ) -- HENRIQUE LEVIN ([id number]) 1960 M Date Time Provider Department 07/31/24 9:00 AM ARSENIO MONIQUE [facility] During your visit today, we recorded the following information about you: Temperature Pulse Respiration Blood pressure 97.5 degrees 61/minute 16/minute 138/70 Weight Height 104.1 kg 1.765 m Arsenio Monique MD 07/31/2024 9:41 AM Addendum [facility] TEST INFORMATION [facility] HOURS: Lab is open: 7:30am to 5:00pm M - , 7:30am to 4:00pm on Sat and 8am -12pm on Sat. The lab is located in [facility] on the first floor. There is a registration window at the lab, available 7 am to 3 pm Saturday - Saturday. If registration is unavailable at the lab, you may register at the patient registration office near the front lobby of the hospital. SCHEDULING A LAB APPOINTMENT: Laboratory appointments are recommended.Walk ins are still accepted. Call [phone] or schedule via [employer] scheduling ticket. ROUTINE LAB ORDERS 60 days after they are entered. If your lab orders , you may be required to wait in the lab while they are reinstated FUTURE ORDERS are lab tests to be completed on the ?EXPECTED? date. These orders 60 days after the expected date. STANDING ORDERS are recurring orders with an expiration date. The interval will indicate how often the test should be completed. CT / MRI / IVP If you have lab tests ordered for one of these radiology exams, please complete the blood work at least one day prior to the scheduled exam. PRESCRIPTION REFILL REQUESTS Request prescription refills through your [employer] account or contact your Pharmacy. My Chart Schedule My Appointment enables you to view your established primary care provider's open schedule and book an appointment online in real-time. This feature is available in internal medicine, family medicine, or pediatrics at any of our [facility] locations and main campus. COLONOSCOPY BOWEL PREPARATION INSTRUCTIONS MiraLAX? Your doctor has scheduled you for a colonoscopy. To have a successful colonoscopy, you must have a clean colon, that is empty. A clean colon allows your doctor to see the entire colon AND diagnose issues like polyps or cancer. For doctors, a clean colon is like driving on a mary day; a dirty colon like driving in a storm. It is very important that you follow these instructions exactly, or your colonoscopy may not be as effective, could be canceled, and you may need to do the bowel prep and colonoscopy again. TRANSPORTATION REQUIREMENTS You are receiving IV sedation. For your safety, a responsible adult escort must accompany you to and from your procedure: Your adult escort MUST be present with you at check-in for your colonoscopy. Your adult escort MUST remain in the endoscopy area until you are discharged. Your adult escort MUST transport you home once you are discharged. You are NOT allowed to operate any form of transportation (i.e. drive a car, bicycle, etc) or leave the Endoscopy Center ALONE. It is not safe to do so. If you cannot meet these requirements, your procedure will be canceled. MEDICATION REQUIREMENTS For your safety, certain medications will need to be stopped or adjusted before you can have your procedure: BLOOD THINNERS: If you take blood thinners, such as Coumadin (warfarin), Plavix (clopidogrel), Ticlid (ticlopidine hydrochloride), Agrylin (anagrelide), Xarelto (Rivaroxaban), Pradaxa (Dabigatran), Eliquis (Apixaban), or Effient (Prasugrel), contact the physician who is prescribing these medications at least 2 weeks prior to your procedure to discuss any necessary adjustments. DIABETES: If you take medications for diabetes, your dosage may need to be adjusted. If you are being treated for diabetes with insulin, diabetic pills, or other injectable medications do not take your REGULAR dose after midnight on the day of your procedure. If you are taking any other types of insulin such as Lantus, Humalog, NPH (long-acting insulin), or 70/30 insulin, take half your normal dose the day before your procedure. DIABETES/WEIGHT MANAGEMENT: If you take medications for weight-loss, your dosage may need to be adjusted Contact the doctor who prescribes this medication for further instructions. If you take medications for weight-loss like semaglutide (Ozempic, Wegovy, Rybelsus), dulaglutide (Trulicity), liraglutide (Victoza, Saxenda), exenatide (Byetta, Bydureon), or lixisenatide (Adylyxin), stop your medication 1 week prior to your procedure. If you take medications like canagliflozin (Invokana), dapagliflozin (Farxiga, Forxiga), empagliflozin (Jardiance), stop your medication 3 days prior to your procedure. If you take ertugliflozin (Steglatro) stop your medication 4 days prior to your pro (more content not included)... Normal [facility] Lipid 1996 panelon 4 Cholesterol [Mass/Vol] 100 mg/dL Normal <200 [facility] Comment on above: Order Comment: Speci men Type: BLOOD SPECIMEN Ordering Facility: [facility] [address] [address] Result Comment: <200 mg/dL, Desirable 200-239 mg/dL, Borderline high >239 mg/dL, High Performed By: #### 2 4331-1 #### [facility] CLIA [id number] [address] [place] [address] [place] Cholesterol in HDL [Mass/Vol] 40 mg/dL Normal >39 [facility] Comment on above: Order Comment: Faith mervin Type: BLOOD SPECIMEN Ordering Facility: [facility] Address: [address] [place] [address] Result Comment: 40-5 9 mg/dL, Acceptable >59 mg/dL, High: Negative risk factor for coronary heart disease <40 mg/dL, Low: Positive risk factor for coronary heart disease Performed By: #### 2 4331-1 #### [facility] CLIA [id number] [address] [place] [address] [place] Cholesterol in LDL [Mass/Vol] 35 mg/dL Normal <100 [facility] Comment on above: Order Comment: Faith mervin Type: BLOOD SPECIMEN Ordering Facility: [facility] Address: [address] [place] [address] Result Comment: <100 mg/dL, Optimal 100-129 mg/dL, Near optimal/above optimal 130-159 mg/dL, Borderline high 160-189 mg/dL, High >189 mg/dL, Very high Secondary prevention optimal LDL Cholesterol levels are recommended to be < 70 mg/dL Performed By: #### 2 4331-1 #### [facility] CLIA [id number] [address] [place] [address] [place] Cholesterol in LDL/Cholesterol in HDL [Mass ratio] 0.88 {ratio} Normal <2.54 [facility] Comment on above: Order Comment: Godfreyjodie jeffries Type: BLOOD SPECIMEN Ordering Facility: [facility] Address: [address] [place] [address] Result Comment: Refwalter carringtonce: 1. National Cholesterol Education Program ATP III Guideline At-A-Glance Quick Desk Reference: National Heart, Lung, and Blood [place]. National Institutes of Health. 2001: NIH Publication No. 01-3305. 2. An International Atherosclerosis Society position paper: global recommendations for the management of dyslipidemia: executive summary, Atherosclerosis. 2014: 232(2):410-413. Performed By: #### 2 4331-1 #### [facility] CLIA [id number] [address] [place] [address] [place] Cholesterol in VLDL [Mass/Vol] 25 mg/dL Normal <30 [facility] Comment on above: Order Comment: Speci men Type: BLOOD SPECIMEN Ordering Facility: [facility] Address: [address] [place] [address] Performed By: #### 2 4331-1 #### [facility] CLIA [id number] [address] [place] [address] [facility] [place] Cholesterol non HDL [Mass/Vol] 60 mg/dL Normal <130 [facility] Comment on above: Order Comment: Speci men Type: BLOOD SPECIMEN Ordering Facility: [facility] Address: [address] [place] [address] Result Comment: <130 mg/dL, Optimal 130-159 mg/dL, Near optimal/above optimal 160-189 mg/dL, Borderline high 190-219 mg/dL, High >219 mg/dL, Very high Secondary prevention optimal non HDL Cholesterol levels are recommended to be <100 mg/dL Performed By: #### 2 4331-1 #### [facility] CLIA [id number] [address] [place] [address] [facility] Cholesterol.total/Chol esterol in HDL [Mass ratio] 2.50 {ratio} Normal <5.10 [facility] Comment on above: Order Comment: Speci men Type: BLOOD SPECIMEN Ordering Facility: [facility] Address: [address] [place] [address] Performed By: #### 2 4331-1 #### [facility] CLIA [id number] [address] [place] [address] [facility] [facility] FASTING TIME 12 hrs Normal [facility] Comment on above: Order Comment: Speci men Type: BLOOD SPECIMEN Ordering Facility: [facility] Address: [address] [place] [address] Performed By: #### 2 4331-1 #### [facility] CLIA [id number] [address] [place] [address] [place] Triglyceride [Mass/Vol] 126 mg/dL Normal <150 [facility] Comment on above: Order Comment: Speci men Type: BLOOD SPECIMEN Ordering Facility: [facility] Address: [address], [place] [address] Result Comment: <150 mg/dL, Normal 150-199 mg/dL, Borderline high 200-499 mg/dL, High >499 mg/dL, Very high Performed By: #### 2 4331-1 #### [facility] CLIA [id number] [address] [place] [id number] [place] [facility] CNCOon 07-16-2024 CNCO Letter Text Normal [facility] CNCOon 06-16-2024 CNCO Letter Text Normal [facility] CNPNon 06-15-2024 CNPN Telephone (IMMDNA) -- HENRIQUE LEVIN ([id number]) 1960 M Date Time Provider Department 06/15/24 ARSENIO MONIQUE IMMDNA During your visit today, we recorded the following information about you: Arsenio Monique MD 06/15/2024 9:40 PM Signed Patient A1c is in. It is up a little to 7.2. If he thinks he can eat better then no needs for meds. Otherwise I would suggest starting 1 metformin per day. His psa is stable Arsenio Tao MD McKoski, Mary Kay, RN 06/16/2024 10:28 AM Signed Discussed with patient-he declines meds. Feels he can work on diet. 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 SIMIN Bradley Nathaniel A, MD 06/16/2024 1:35 PM Signed Letter in outbox on 06/17. Sanrda Arreaga MA 06/17/2024 4:24 PM Signed Pt advised and letter placed at front office supervisor Camelia Stephens 08/17/2024 2:57 PM Signed Waist circumference 40 Allergies As of Date: 06/15/2024 Noted Allergy Reaction SULFA (SULFONAMIDE ANTIBIOTICS) 04/20/2016 16 - Unknown Date Reviewed: 06/07/2023 Reviewed by: Camelia Calixto APRN.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 - Fully Assessed Reason for Visit: Results [95] Prescriptions as of 08/17/2024 - atorvastatin (LIPITOR) 80 mg tablet Take 1 tablet by mouth once daily. BEFORE BEDTIME - lisinopril (ZESTRIL) 10 mg tablet Take 1 tablet by mouth two times a day. - blood sugar diagnostic (ONETOUCH VERIO TEST STRIPS) test strip Testing twice daily. Non-insulin dependent diabetes E 11.22 - lancets (ONE TOUCH DELICA) 33 gauge Use 1 Each in each nostril two times a day. - sildenafil (VIAGRA) 25 mg tablet Take 1 tablet by mouth as needed. - multivitamin tablet Take 1 tablet by mouth once daily. - amLODIPine (NORVASC) 10 mg tablet Take 2.5 mg by mouth once daily. - VITAMIN B COMPLEX-100 ORAL Take 1 tablet by mouth once daily. - Ascorbic Acid 500 mg cpER Take 1 capsule by mouth once daily. - cholecalciferol, vitamin D3, (VITAMIN D3 ORAL) Take 1,000 Units by mouth once daily. Problem List As Of Date 06/15/2024 Noted Resolved Obesity, Class II, BMI 35-39.9 [E66.812] 03/06/2018 02/10/2019 Thrombocytopenia (HCC) [D69.6] 03/19/2018 Anemia [D64.9] 03/19/2018 Obesity, Class I, BMI 30-34.9 [E66.811] 05/16/2018 History of hepatitis C [Z86.19] 08/11/2018 Type 2 diabetes mellitus with stage 3a chronic *11/21/2018 Essential hypertension [I10] 11/21/2018 Hyperlipidemia [E78.5] 11/21/2018 Tobacco use disorder [F17.200] 11/21/2018 07/22/2020 Cholecystitis [K81.9] 04/14/2022 Cirrhosis of liver without ascites, unspecified*06/07/2023 Encounter Status:Closed by SANDRA ARREAGA on 06/17/24 Normal [facility] HbA1c (Bld)on 06-13-2024 Average glucose Estimated from glycated hemoglobin (Bld) [Mass/Vol] 160 mg/dL Normal [facility] Comment on above: Order Comment: Speci men Type: BLOOD SPECIMEN Ordering Facility: [facility] Address: [address] [place] [address] Result Comment: eAG: (Estimated average glucose) is a calculated value from HgbA1c and is scheduling representative of the average blood glucose level in the last 2-3 month period. Performed By: #### 5 5454-3 #### [facility] CLIA [id number] [address] [place] [address] [place] HbA1c (Bld) [Mass fraction] 7.2 % High 4.3-5.6 [facility] Comment on above: Order Comment: Speci men Type: BLOOD SPECIMEN Ordering Facility: [facility] Address: [address] [place] [address] Result Comment: [place] Diabetes Association guidelines indicate that patients with HgbA1c in the range 5.7-6.4% are at increased risk for development of diabetes, and intervention by lifestyle modification may be beneficial. HgbA1c greater or equal to 6.5% is considered diagnostic of diabetes. Performed By: #### 5 5454-3 #### [facility] CLIA [id number] [address] [place] [address] [place] PSA/PROSTATE SPECIFIC ANTIGE N SCREENINGon 06-13-2024 Prostate specific Ag [Mass/Vol] 1.16 ng/mL Normal <2.60 [facility] Comment on above: Order Comment: Speci men Type: BLOOD SPECIMEN Ordering Facility: [facility] Address: [address] [place] [address] Result Comment: Tota l PSA test methodology used is the Electrochemiluminescence Immunoassay by [employer]. Total PSA values by differing methodologies cannot be interchanged. Performed By: #### P SAS1 #### [facility] CLIA [id number] [address] [place] [address] [place] PSA/PROSTSPECAG SCRNon 06-07 Prostate specific Ag [Mass/Vol] 1.14 ng/mL <2.60 ng/mL [facility] mix RAST testO rdered By: Jadyn Moreno on 03-20-2022 AST [Catalytic activity/Vol] 22 U/L 15-37 [facility] - Chemistry and C hemistry - challengeOrdered By: Jadyn Moreno on 03-20-2022 ALP [Catalytic activity/Vol] 76 U/L 45-117 [facility] ALT [Catalytic activity/Vol] 41 U/L 16-61 [facility] Globulin (S) [Mass/Vol] 4.0 g/dL 2.2-4.2 [facility] No Panel InformationOrdered By: Jadyn Moreno on 03-20-2022 Estimated GFR (MDRD) Amer 62 mL/min >60 [facility] Comment on above: GFR Calc Serum or plasma albumin yin urement (mass/volume)Ordered By: Jadyn Moreno on 03-20-2022 Albumin [Mass/Vol] 4.0 g/dL 3.2-5.0 [facility] Serum or plasma albumin/glob ulin mass ratioOrdered By: [facility] on 03-20-2022 Albumin/Globulin [Mass ratio] 1.0 {ratio} 0.9-2.4 [facility] Trichomonas screening testOr dered By: Jadyn Moreno on 03-20-2022 Bilirubin [Mass/Vol] 0.40 mg/dL 0.20-1.00 [place] Comment on above: For patients on eltr ombopag therapy, use of Dimension [place] TBIL is not recommended. Protein [Mass/Vol] 8.0 g/dL 6.4-8.2 [facility] HIV Screenon 04-25-2020 HIV Screen Nonreactive Normal Nonreactive [facility] Comment on above: Result Comment: Maricel ents taking a biotin dose of up to 5 mg/day should refrain from taking biotin for 4 hours prior to sample collection. Patients taking a biotin dose of 5 to 10 mg/day should refrain from taking biotin for 8 hours prior to sample collection. Patients taking a biotin dose > 10 mg/day should consult with their physician or the laboratory prior to having a sample taken. Clinicians should consider biotin interference as a source of error, when clinically suspicious of the laboratory result. Performed By: #### L LIPD #### [facility] [address] [place] [address] Comprehensive Panelon 2019 Albumin [Mass/Vol] 4.6 g/dL Normal 3.9-4.9 [facility] Comment on above: Performed By: #### L HEPA #### [facility] [address] [place] [address] ALP [Catalytic activity/Vol] 69 U/L Normal 38-113 [facility] Comment on above: Performed By: #### L HEPA #### [facility] [address] [place] [address] ALT-SGPT Blood 29 U/L Normal 10-54 [facility] Comment on above: Performed By: #### L HEPA #### [facility] [address] [place] [address] Anion gap [Moles/Vol] 9 mmol/L Normal 9-18 [facility] Comment on above: Performed By: #### L HEPA #### [facility] [address] [place] [address] AST-SGOT Blood 22 U/L Normal 14-40 [facility] Comment on above: Performed By: #### L HEPA #### [facility] [address] [place] [address] Bilirubin Ql (U) 0.4 mg/dL Normal 0.2-1.3 [facility] Comment on above: Performed By: #### L HEPA #### [facility] [address] [place] [address] Calcium [Mass/Vol] 10.4 mg/dL High 8.5-10.2 [facility] Comment on above: Performed By: #### L HEPA #### [facility] [address] [place] [address] Chloride [Moles/Vol] 109 mmol/L High 97-105 [facility] Comment on above: Performed By: #### L HEPA #### [facility] [address] [place] [address] CO2 Blood 22 mmol/L Normal 22-30 [facility] Comment on above: Performed By: #### L HEPA #### [facility] [address] [place], [place] [address] Creatinine [Mass/Vol] 1.63 mg/dL High 0.73-1.22 [facility] Comment on above: Performed By: #### L HEPA #### [facility] [address] [place], [place] [address] Glucose [Mass/Vol] 141 mg/dL High 74-99 [facility] Comment on above: Result Comment: The [place] Diabetes Association (ADA) provides guidance for cutoff values for fasting glucose and random glucose. The ADA defines fasting as no caloric intake for at least 8 hours.Fasting plasma glucose results between 100 to 125 mg/dL indicate increased risk for diabetes (prediabetes). Fasting plasma glucose results greater than or equal to 126 mg/dL meet the criteria for diagnosis of diabetes. In the absence of unequivocal hyperglycemia, results should be confirmed by repeat testing. In a patient with classic symptoms of hyperglycemia or hyperglycemic crisis, random plasma glucose results greater than or equal to 200 mg/dL meet the criteria for diagnosis of diabetes. Reference: Standards of Medical Care in Diabetes 2016; [place] Diabetes Association. Diabetes Care. 2016;39(Suppl 1). Performed By: #### L HEPA #### [facility] [address] [place], [place] [address] Potassium [Moles/Vol] 4.7 mmol/L Normal 3.7-5.1 [facility] Comment on above: Performed By: #### L HEPA #### [facility] [address] [place], [place] [address] Protein [Mass/Vol] 7.5 g/dL Normal 6.3-8.0 [facility] Comment on above: Performed By: #### L HEPA #### [facility] [address] [place], [place] [address] Sodium [Moles/Vol] 140 mmol/L Normal 136-144 [facility] Comment on above: Performed By: #### L HEPA #### [facility] [address] [place], [place] [address] Urea nitrogen [Mass/Vol] 16 mg/dL Normal 9-24 [facility] Comment on above: Performed By: #### L HEPA #### [facility] [address] [place] [address] Hemogramon 04-23-2020 Erythrocyte distribution width (RBC) [Ratio] 12.9 % Normal 11.5-15.9 [facility] Comment on above: Performed By: #### L HEPA #### [facility] [address] [place] [address] Hematocrit (Bld) [Volume fraction] 37.5 % Low 42.0-52.0 [facility] Comment on above: Performed By: #### L HEPA #### [facility] [address] [place] [address] Hemoglobin (Bld) [Mass/Vol] 12.3 g/dL Low 14.0-18.0 [facility] Comment on above: Performed By: #### L HEPA #### [place] [address] MCH (RBC) [Entitic mass] 30.5 pg Normal 27.0-31.0 [facility] Comment on above: Performed By: #### L HEPA #### [facility] [address] [place] [address] MCHC (RBC) [Mass/Vol] 32.8 % Normal 32.0-36.0 [facility] Comment on above: Performed By: #### L HEPA #### [place] [address] MCV (RBC) [Entitic vol] 93.1 fL Normal 80.0-94.0 [facility] Comment on above: Performed By: #### L HEPA #### [facility] [address] [place] [address] Platelet mean volume (Bld) [Entitic vol] 12.9 fL High 7.1-10.5 [facility] Comment on above: Performed By: #### L HEPA #### [facility] [address] [place] [address] Platelets (Bld) [#/Vol] 126 thou/cmm Low 150-400 [facility] Comment on above: Performed By: #### L HEPA #### [facility] [address] [place] [address] RBC (Bld) [#/Vol] 4.03 mil/cmm Low 4.60-6.20 [facility] Comment on above: Performed By: #### L HEPA #### [facility] [address] [place], [place] [address] WBC (Bld) [#/Vol] 5.8 thou/cmm Normal 4.8-10.5 [facility] Comment on above: Performed By: #### L HEPA #### [facility] [address] [place] [address] Hgb A1con 04-23-2020 HbA1c (Bld) [Mass fraction] 154 mg/dL Normal [facility] Comment on above: Performed By: #### L LIPD #### [place] [address] HbA1c (Bld) [Mass fraction] 7.0 % High 4.0-5.6 [facility] Comment on above: Result Comment: Amer ican Diabetes Association guidelines indicate that the patients with HgA1c in the range 5.7 ? 6.4% are at increased risk for development of diabetes, and intervention by lifestyle modification may be beneficial. HgA1c greater or equal to 6.5% is considered diagnostic of diabetes. Performed By: #### L LIPD #### [place] [address] MDRD eGFRon 04-23-2020 GFR/1.73 sq M predicted among non-blacks MDRD (S/P/Bld) [Vol rate/Area] 45.77 mL/min/{1.73_m2} Normal >60mL/min/1. 73m2 [facility] Comment on above: Result Comment: If t he patient is , multiply the result by 1.210. Performed By: #### L HEPA #### [facility] [address] [place] [id number] Hepatic Panelon 02-20-2020 Albumin [Mass/Vol] 4.3 g/dL Normal 3.9-4.9 [facility] Comment on above: Performed By: #### L HEPA #### [facility] [address] [place], [place] [address] ALP [Catalytic activity/Vol] 61 U/L Normal 38-113 [facility] Comment on above: Performed By: #### L HEPA #### [facility] [address] [place], [place] [address] ALT-SGPT Blood 28 U/L Normal 10-54 [facility] Comment on above: Performed By: #### L HEPA #### [facility] [address] [place] [address] AST-SGOT Blood 22 U/L Normal 14-40 [facility] Comment on above: Performed By: #### L HEPA #### [facility] [address] [place] [address] Bilirubin Ql (U) 0.4 mg/dL Normal 0.2-1.3 [facility] Comment on above: Performed By: #### L HEPA #### [facility] [address] [place] [address] Bilirubin.direct [Mass/Vol] mg/dL Normal 0.0-0.2 [facility] Comment on above: Performed By: #### L HEPA #### [facility] [address] [place] [address] Protein [Mass/Vol] 7.2 g/dL Normal 6.3-8.0 [facility] Comment on above: Performed By: #### L HEPA #### [facility] [address] [place] [address] C3on 10-10-2019 C3 135.0 mg/dL Normal 90.0-180.0 [facility] Comment on above: Performed By: #### L HEPA #### [facility] [address] [place] [address] C4on 10-10-2019 C4 22.8 mg/dL Normal 10.0-40.0 [facility] Comment on above: Performed By: #### L HEPA #### [place] [address] Comprehensive Panelon 2019 ALP [Catalytic activity/Vol] 72 U/L Normal 45-117 [facility] Comment on above: Performed By: #### L HEPA #### [facility] [address] [place], [place] [address] Protein [Mass/Vol] 7.7 g/dL Normal 6.4-8.2 [facility] Comment on above: Performed By: #### L HEPA #### [facility] [address] [place], [place] [address] Bilirubin [Mass/Vol] 0.5 mg/dL Normal 0.2-1.0 [facility] Comment on above: Performed By: #### L HEPA #### [facility] [address] [place], [place] [address] ALT [Catalytic activity/Vol] 35 U/L Normal 12-78 [facility] Comment on above: Performed By: #### L HEPA #### [facility] [address] [place], [place] [address] AST [Catalytic activity/Vol] 18 U/L Normal 15-37 [facility] Comment on above: Performed By: #### L HEPA #### [facility] [address] [place], [place] [address] Creatinine [Mass/Vol] 1.29 mg/dL High 0.67-1.17 [facility] Comment on above: Result Comment: Use of this assay is not recommended for patients undergoing treatment with phenindione, due to the potential for falsely depressed results. Performed By: #### L HEPA #### [facility] [address] [place], [place] [address] Glucose [Mass/Vol] 114 mg/dL High 70-99 [facility] Comment on above: Performed By: #### L HEPA #### [facility] [address] [place], [place] [address] Albumin [Mass/Vol] 4.0 g/dL Normal 3.4-5.0 [facility] Comment on above: Performed By: #### L HEPA #### [facility] [address] [place], [place] [address] Anion gap [Moles/Vol] 11 mmol/L Normal 8-16 [facility] Comment on above: Performed By: #### L HEPA #### [facility] [address] [place], [place] [address] Calcium [Mass/Vol] 9.7 mg/dL Normal 8.5-10.1 [facility] Comment on above: Performed By: #### L HEPA #### [facility] [address] [place], [place] [address] CO2 [Moles/Vol] 25 mmol/L Normal 21-32 [facility] Comment on above: Performed By: #### L HEPA #### [facility] [address] [place], [place] [address] Urea nitrogen [Mass/Vol] 20 mg/dL High 7-18 [facility] Comment on above: Performed By: #### L HEPA #### [facility] [address] [place], [place] [address] Chloride [Moles/Vol] 108 mmol/L High 98-107 [facility] Comment on above: Performed By: #### L HEPA #### [facility] [address] [place] [address] Potassium [Moles/Vol] 4.7 mmol/L Normal 3.5-5.1 [facility] Comment on above: Performed By: #### L HEPA #### [facility] [address] [place] [address] Sodium [Moles/Vol] 139 mmol/L Normal 136-145 [facility] Comment on above: Performed By: #### L HEPA #### [facility] [address] [place], [place] [address] MDRD GFRon 10-10-2019 GFR/1.73 sq M predicted among non-blacks MDRD (S/P/Bld) [Vol rate/Area] 56.51 mL/min/{1.73_m2} Normal >60mL/min/1. 73m2 [facility] Comment on above: Result Comment: If t he patient is , multiply the result by 1.210. Performed By: #### L HEPA #### [address] [address] Microalb/Creat, Randomon MA/Creat Ratio 670.66 mg/g High 0.10-30.00 [facility] Comment on above: Performed By: #### L HEPA #### [facility] [address] [place] [address] Microalbumin,Random 44.80 mg/dL High 0.20-2.50 [facility] Comment on above: Performed By: #### L HEPA #### [place] [address] Creatinine,Urine 66.8 mg/dL Normal [facility] Comment on above: Result Comment: Use of this assay is not recommended for patients undergoing treatment with phenindione, due to the potential for falsely depressed results. Performed By: #### L HEPA #### [place] [address] Urinalysis Routineon 020 Appearance (U) CLEAR Normal [facility] Comment on above: Performed By: #### L HEPA #### [place] [address] Bilirubin Urine Negative Normal Negative [facility] Comment on above: Performed By: #### L HEPA #### [place] [address] Color (U) YELLOW Normal [facility] Comment on above: Performed By: #### L HEPA #### [place] [address] Ep Cells Urine 0-2 Normal 0-5 [facility] Comment on above: Performed By: #### L HEPA #### [place] [address] Glucose Ql (U) Negative Normal Negative [facility] Comment on above: Performed By: #### L HEPA #### [place] [address] Hemoglobin,Urine TRACE-INTACT Abnormal Negative [facility] Comment on above: Performed By: #### L HEPA #### [place] [address] Ketone Urine Negative Normal Negative [facility] Comment on above: Performed By: #### L HEPA #### [facility] [address] [place] [address] Leukocytes Esterase Negative Normal Negative [facility] Comment on above: Performed By: #### L HEPA #### [facility] [address] [place] [address] Nitrites Urine Negative Normal Negative [facility] Comment on above: Performed By: #### L HEPA #### [facility] [address] [place] [address] pH (U) 6.0 [pH] Normal 5.0-8.0 [facility] Comment on above: Performed By: #### L HEPA #### [place] [address] Protein (U) [Mass/Vol] 2+ Abnormal Negative [facility] Comment on above: Performed By: #### L HEPA #### [place] [address] RBC LM.HPF (Urine sed) [#/Area] 0-3 Normal 0-3 [facility] Comment on above: Performed By: #### L HEPA #### [place] [address] Specific [place], Ur 1.020 Normal 1.005-1.030 [facility] Comment on above: Performed By: #### L HEPA #### [place] [address] Urobilinogen,Ur 0.2 EU/dL Normal 0.2-1.0 [facility] Comment on above: Performed By: #### L HEPA #### [place] [address] WBC LM.HPF (Urine sed) [#/Area] 0-2 Normal 0-5 [facility] Comment on above: Performed By: #### L HEPA #### [facility] [address] [place] [address] PTH, Intacton 07-12-2019 PTH, Intact 118.9 pg/mL High 18.5-88.0 [facility] Comment on above: Performed By: #### L PT #### [facility] [address] [place], [place] [address] Total 25-OH Vitamin Don 07-03 Total 25-OH Vitamin D 27.0 ng/mL Low 30.0-100.0 [facility] Comment on above: Performed By: #### L PT #### [facility] [address] [place] [address] Comprehensive Panelon 2018 ALP [Catalytic activity/Vol] 85 U/L Normal 45-117 [facility] Comment on above: Performed By: #### L PT #### [facility] [address] [place], [place] [address] Bilirubin [Mass/Vol] 0.6 mg/dL Normal 0.2-1.0 [facility] Comment on above: Performed By: #### L PT #### [address] [address] Protein [Mass/Vol] 8.1 g/dL Normal 6.4-8.2 [facility] Comment on above: Performed By: #### L PT #### [facility] [address] [place], [place] [address] ALT [Catalytic activity/Vol] 34 U/L Normal 12-78 [facility] Comment on above: Performed By: #### L PT #### [facility] [address] [place], [place] [address] Creatinine [Mass/Vol] 1.34 mg/dL High 0.67-1.17 [facility] Comment on above: Performed By: #### L PT #### [facility] [address] [place], [place] [address] AST [Catalytic activity/Vol] 18 U/L Normal 15-37 [facility] Comment on above: Performed By: #### L PT #### [place] [address] Albumin [Mass/Vol] 4.1 g/dL Normal 3.4-5.0 [facility] Comment on above: Performed By: #### L PT #### [place] [address] Anion gap [Moles/Vol] 6 mmol/L Low 8-16 [facility] Comment on above: Performed By: #### L PT #### [facility] [address] [place], [place] [address] Calcium [Mass/Vol] 10.5 mg/dL High 8.5-10.1 [facility] Comment on above: Performed By: #### L PT #### [facility] [address] [place], [place] [address] CO2 [Moles/Vol] 28 mmol/L Normal 21-32 [facility] Comment on above: Performed By: #### L PT #### [facility] [address] [place], [place] [address] Glucose [Mass/Vol] 111 mg/dL High 70-99 [facility] Comment on above: Performed By: #### L PT #### [facility] [address] [place], [place] [address] Urea nitrogen [Mass/Vol] 14 mg/dL Normal 7-18 [facility] Comment on above: Performed By: #### L PT #### [facility] [address] [place], [place] [address] Chloride [Moles/Vol] 110 mmol/L High 98-107 [facility] Comment on above: Performed By: #### L PT #### [facility] [address] [place], [place] [address] Potassium [Moles/Vol] 4.9 mmol/L Normal 3.5-5.1 [facility] Comment on above: Performed By: #### L PT #### [facility] [address] [place], [place] [address] Sodium [Moles/Vol] 139 mmol/L Normal 136-145 [facility] Comment on above: Performed By: #### L PT #### [facility] [address] [place], [place] [address] MDRD GFRon 07-11-2019 GFR/1.73 sq M predicted among non-blacks MDRD (S/P/Bld) [Vol rate/Area] 54.12 mL/min/{1.73_m2} Normal >60mL/min/1. 73m2 [facility] Comment on above: Result Comment: If t he patient is , multiply the result by 1.210. Performed By: #### L PT #### [facility] [address] [place] [address] Microalb/Creat, Randomon MA/Creat Ratio 865.92 mg/g High 0.10-30.00 [facility] Comment on above: Performed By: #### L PT #### [facility] [address] [place] [address] Microalbumin,Random 31.00 mg/dL High 0.20-2.50 [facility] Comment on above: Performed By: #### L PT #### [place] [address] Creatinine,Urine 35.8 mg/dL Normal [facility] Comment on above: Performed By: #### L PT #### [place] [address] Urinalysis Routineon 019 Appearance (U) CLEAR Normal [facility] Comment on above: Performed By: #### L PT #### [place] [address] Bilirubin Urine Negative Normal Negative [facility] Comment on above: Performed By: #### L PT #### [place] [address] Color (U) YELLOW Normal [facility] Comment on above: Performed By: #### L PT #### [place] [address] Ep Cells Urine NONE Normal 0-5 [facility] Comment on above: Performed By: #### L PT #### [place] [address] Glucose Ql (U) Negative Normal Negative [facility] Comment on above: Performed By: #### L PT #### [place] [address] Hemoglobin,Urine Negative Normal Negative [facility] Comment on above: Performed By: #### L PT #### [place] [address] Ketone Urine Negative Normal Negative [facility] Comment on above: Performed By: #### L PT #### [facility] [address] [place] [address] Leukocytes Esterase Negative Normal Negative [facility] Comment on above: Performed By: #### L PT #### [facility] [address] [place] [address] Nitrites Urine Negative Normal Negative [facility] Comment on above: Performed By: #### L PT #### [facility] [address] [place] [address] pH (U) 7.0 [pH] Normal 5.0-8.0 [facility] Comment on above: Performed By: #### L PT #### [place] [address] Protein (U) [Mass/Vol] 2+ Abnormal Negative [facility] Comment on above: Performed By: #### L PT #### [place] [address] RBC LM.HPF (Urine sed) [#/Area] NONE Normal 0-3 [facility] Comment on above: Performed By: #### L PT #### [place] [address] Specific [place], Ur 1.010 Normal 1.005-1.030 [facility] Comment on above: Performed By: #### L PT #### [place] [address] Urobilinogen,Ur 0.2 EU/dL Normal 0.2-1.0 [facility] Comment on above: Performed By: #### L PT #### [place] [address] WBC LM.HPF (Urine sed) [#/Area] NONE Normal 0-5 [facility] Comment on above: Performed By: #### L PT #### [place] [address] Creatinine Clearanceon 05-24 Creatinine Clearance 76.5 mL/min/1.73m2 Normal 62.0-14 5.0 [facility] Comment on above: Performed By: #### L PT #### [facility] [address] [place] [address] Flow Per Minute 1.13 Normal [facility] Comment on above: Performed By: #### L PT #### [facility] [address] [place] [address] Surface Area 2.22 Normal [facility] Comment on above: Performed By: #### L PT #### [facility] [address] [place] [address] Total No. Minutes 1440 Normal [facility] Comment on above: Performed By: #### L PT #### [facility] [address] [place] [address] Creatinine [Mass/Vol] 2.1 g/24 hrs Normal 0.9-2.4 [facility] Comment on above: Performed By: #### L PT #### [facility] [address] [place] [address] Creatinine [Mass/Vol] 1.46 mg/dL High 0.67-1.17 [facility] Comment on above: Performed By: #### L PT #### [facility] [address] [place] [address] Pt. Height 70 IN/CM Normal [facility] Comment on above: Performed By: #### L PT #### [facility] [address] [place] [address] Total Volume 1625 mL High [id number] [facility] Comment on above: Performed By: #### L PT #### [facility] [address] [place] [address] MDRD GFRon 05-24-2019 GFR/1.73 sq M predicted among non-blacks MDRD (S/P/Bld) [Vol rate/Area] 49.04 mL/min/{1.73_m2} Normal >60mL/min/1. 73m2 [facility] Comment on above: Result Comment: If t he patient is , multiply the result by 1.210. Performed By: #### L PT #### [facility] [address] [place] [address] Protein 24Hr Uron 05-24-2019 Protein [Mass/Vol] 537.9 mg/24 hrs High 0.0-149.0 [facility] Comment on above: Performed By: #### L PT #### [place] [id number] Hepatitis A Totalon 05-19-20 19 Hepatitis A Total Positive Abnormal NEGAT [facility] Comment on above: Result Comment: Perf orming Laboratory: [facility] [address] [place] [address] Performed By: #### L PT #### [place] [address] Hemoglobin A1Con 05-18-2019 HbA1c (Bld) [Mass fraction] 6.1 % Normal 4.5-6.2 [facility] Comment on above: Performed By: #### L A1C #### [place] [address] HbA1c (Bld) [Mass fraction] 128 mg/dl Normal [facility] Comment on above: Performed By: #### L A1C #### [place] [address] Hep. B Surface Abon 05-17-20 19 Hep. B Surface Ab 595.6 mIU/mL Normal [facility] Comment on above: Result Comment: Hep B. Antibody < 10.0 mIU/mL is negative. Hep B. Antibody > or = 10.0 mIU/mL is positive. Performed By: #### A NTB #### [place] [address] AFP Tumor Markeron 9 AFP Tumor Marker 1.24 IU/ml Normal 0.40-6.60 [facility] Comment on above: Result Comment: Test ing performed by Chemiluminescence LOCI. Performed By: #### A FPTU #### [place] [address] Basic Panelon 05-16-2019 Creatinine [Mass/Vol] 1.47 mg/dL High 0.67-1.17 [facility] Comment on above: Performed By: #### P 8 #### [address] [place], [place] [address] Anion gap [Moles/Vol] 11 mmol/L Normal 8-16 [facility] Comment on above: Performed By: #### P 8 #### [facility] [address] [place], [place] [address] CO2 [Moles/Vol] 25 mmol/L Normal 21-32 [facility] Comment on above: Performed By: #### P 8 #### [facility] [address] [place], [place] [address] Glucose [Mass/Vol] 126 mg/dL High 70-99 [facility] Comment on above: Performed By: #### P 8 #### [facility] [address] [place], [place] [address] Urea nitrogen [Mass/Vol] 20 mg/dL High 7-18 [facility] Comment on above: Performed By: #### P 8 #### [facility] [address] [place], [place] [address] Calcium [Mass/Vol] 9.9 mg/dL Normal 8.5-10.1 [facility] Comment on above: Performed By: #### P 8 #### [facility] [address] [place], [place] [address] Chloride [Moles/Vol] 110 mmol/L High 98-107 [facility] Comment on above: Performed By: #### P 8 #### [facility] [address] [place], [place] [address] Potassium [Moles/Vol] 4.9 mmol/L Normal 3.5-5.1 [facility] Comment on above: Performed By: #### P 8 #### [facility] [address] [place], [place] [address] Sodium [Moles/Vol] 141 mmol/L Normal 136-145 [facility] Comment on above: Performed By: #### P 8 #### [facility] [address] [place], [place] [address] Calcium Bloodon 05-16-2019 Calcium [Mass/Vol] 10.6 mg/dL High 8.5-10.1 [facility] Comment on above: Performed By: #### L CA #### [facility] [address] [place] [address] Hemogram/Diffon 05-16-2019 Abs. Baso 0.02 thou/cmm Normal 0.00-0.08 [facility] Comment on above: Performed By: #### L CBCD #### [facility] [address] [place] [address] Abs. [place] 0.42 thou/cmm Normal 0.20-1.00 [facility] Comment on above: Performed By: #### L CBCD #### [facility] [address] [place] [address] Abs. Neut (ANC) 3.88 thou/cmm Normal 3.00-5.67 [facility] Comment on above: Performed By: #### L CBCD #### [place] [address] Basophils/100 WBC (Bld) 0.3 % Normal [facility] Comment on above: Performed By: #### L CBCD #### [place] [address] Eosinophils (Bld) [#/Vol] 0.88 thou/cmm High 0.00-0.41 [facility] Comment on above: Performed By: #### L CBCD #### [place] [address] Eosinophils/100 WBC (Bld) 12.2 % Normal [facility] Comment on above: Performed By: #### L CBCD #### [place] [address] Erythrocyte distribution width (RBC) [Ratio] 13.2 % Normal 11.5-15.9 [facility] Comment on above: Performed By: #### L CBCD #### [place] [address] Hematocrit (Bld) [Volume fraction] 39.2 % Low 42.0-52.0 [facility] Comment on above: Performed By: #### L CBCD #### [place] [address] Hemoglobin (Bld) [Mass/Vol] 12.8 g/dL Low 14.0-18.0 [facility] Comment on above: Performed By: #### L CBCD #### [facility] [address] [place], [place] [address] Lymphocytes (Bld) [#/Vol] 2.00 thou/cmm Normal 1.50-3.65 [facility] Comment on above: Performed By: #### L CBCD #### [address] [address] Lymphocytes/100 WBC (Bld) 27.8 % Normal [facility] Comment on above: Performed By: #### L CBCD #### [address] [address] MCH (RBC) [Entitic mass] 30.7 pg Normal 27.0-31.0 [facility] Comment on above: Performed By: #### L CBCD #### [place] [address] MCHC (RBC) [Mass/Vol] 32.7 % Normal 32.0-36.0 [facility] Comment on above: Performed By: #### L CBCD #### [place] [address] MCV (RBC) [Entitic vol] 94.0 fL Normal 80.0-94.0 [facility] Comment on above: Performed By: #### L CBCD #### [place] [address] Monocytes/100 WBC (Bld) 5.9 % Normal [facility] Comment on above: Performed By: #### L CBCD #### [address] [address] Platelet mean volume (Bld) [Entitic vol] 12.4 fL High 7.1-10.5 [facility] Comment on above: Performed By: #### L CBCD #### [address] [address] Platelets (Bld) [#/Vol] 129 thou/cmm Low 150-400 [facility] Comment on above: Performed By: #### L CBCD #### [facility] [address] [place] [address] RBC (Bld) [#/Vol] 4.17 mil/cmm Low 4.60-6.20 [facility] Comment on above: Performed By: #### L CBCD #### [facility] [address] [place] [address] Seg Neutrophil 53.8 % Normal [facility] Comment on above: Performed By: #### L CBCD #### [facility] [address] [place] [address] WBC (Bld) [#/Vol] 7.2 thou/cmm Normal 4.8-10.5 [facility] Comment on above: Performed By: #### L CBCD #### [facility] [address] [place] [address] Hepatic Panelon 05-16-2019 Albumin [Mass/Vol] 4.0 g/dL Normal 3.4-5.0 [facility] Comment on above: Performed By: #### L HEPA #### [facility] [address] [place] [address] Albumin/Globulin [Mass ratio] 1.0 {ratio} Normal 0.9-2.4 [facility] Comment on above: Performed By: #### L HEPA #### [facility] [address] [place] [address] ALP [Catalytic activity/Vol] 88 U/L Normal 46-116 [facility] Comment on above: Performed By: #### L HEPA #### [facility] [address] [place] [address] ALT-SGPT Blood 36 U/L Normal 14-63 [facility] Comment on above: Performed By: #### L HEPA #### [facility] [address] [place] [address] AST-SGOT Blood 24 U/L Normal 15-37 [facility] Comment on above: Performed By: #### L HEPA #### [place] [address] Bilirubin Ql (U) 0.6 mg/dL Normal 0.2-1.0 [facility] Comment on above: Performed By: #### L HEPA #### [facility] [address] [place] [address] Bilirubin.direct [Mass/Vol] 0.13 mg/dL Normal 0.00-0.20 [facility] Comment on above: Performed By: #### L HEPA #### [facility] [address] [place] [address] Bilirubin.indirect (Body fld) [Mass/Vol] 0.5 mg/dL Normal 0.0-0.7 [facility] Comment on above: Performed By: #### L HEPA #### [facility] [address] [place] [address] Protein [Mass/Vol] 7.9 g/dL Normal 6.4-8.2 [facility] Comment on above: Performed By: #### L HEPA #### [place] [address] Lipid Profileon 05-16-2019 Cholesterol [Mass/Vol] 101 mg/dL Normal 0-199 [facility] Comment on above: Performed By: #### L LIPD #### [facility] [address] [place] [address] Cholesterol in HDL [Mass/Vol] 34 mg/dL Normal >40 [facility] Comment on above: Performed By: #### L LIPD #### [place] [address] Cholesterol in LDL [Mass/Vol] 37 mg/dL Normal 0-150 [facility] Comment on above: Performed By: #### L LIPD #### [facility] [address] [place] [address] Cholesterol.total/Chol esterol in HDL [Mass ratio] 3.0 {ratio} Normal 2.1-7.3 [facility] Comment on above: Performed By: #### L LIPD #### [facility] [address] [place] [address] Triglyceride Blood 152 mg/dL High 0-149 [facility] Comment on above: Performed By: #### L LIPD #### [place] [address] Risk Factor See Below Normal [facility] Comment on above: Result Comment: Card iac Risk Factor The CHD risk factor is based on the total Chol/HDL ratio. Other factors affect CHD risk such as hypertension, smoking, diabetes, severe obesity and premature CHD. Cardiac Risk Total Chol/HDL ratio Men Women 1/2 avg risk 3.4-4.9 3.3-6.3 Avg risk 5.0-9.5 6.4-7.0 2x avg risk 9.6-23.3 7.1-10.9 3x avg risk >23.4 >11.0 Performed By: #### L LIPD #### [place] [address] MDRD GFRon 05-16-2019 GFR/1.73 sq M predicted among non-blacks MDRD (S/P/Bld) [Vol rate/Area] 48.66 mL/min/{1.73_m2} Normal >60mL/min/1. 73m2 [facility] Comment on above: Result Comment: If t he patient is , multiply the result by 1.210. Performed By: #### G FR #### [place] [id number] Protimeon 05-16-2019 INR Coag (PPP) [Relative time] 1.05 {INR} Normal 0.90-1.30 [facility] Comment on above: Result Comment: Note : Reference Range Change Vitamin K Antagonist (VKA) Therapeutic Range: INR 2 to 3 (Target INR of 2.5) Note: For patients treated with VKA drugs, such as warfarin, the [employer] 2012 Guideline recommends a therapeutic INR range of 2 to 3 (target INR of 2.5). This recommendation includes high-risk patients with antiphospholipid syndrome with previous arterial or venous thromboembolism, current-generation mechanical or bioprosthetic aortic heart valve replacement. VKA Therapeutic Range for some Mechanical Valve Replacement: INR 2.5 to 3.5 (Target INR of 3) Note: Patients with mechanical aortic valve replacement and additional risk factors for thromboembolic events (atrial fibrillation, previous thromboembolism, LV dysfunction, hypercoagulable conditions) or an older generation mechanical AVR (i.e., ball in-Cage) or any mechanical MVR should have a INR therapeutic range of 2.5 to 3.5 target INR of 3). Jarrell GH, et al. Chest 2012; 141:7S-47S Zack TEIXEIRA et al. JAC 2017; 70: 252-289 Performed By: #### L PT #### [facility] [address] [place] [address] PT Coag (PPP) [Time] 11.1 s Normal 9.7-13.0 [facility] Comment on above: Result Comment: . Performed By: #### L PT #### [place] [id number] Laboratory - Hematology and Cell countson 11-17-2018 Erythrocyte distribution width (RBC) [Entitic vol] 46.7 fL High 35.1-43.9 [facility] Erythrocyte distribution width (RBC) [Ratio] 13.5 % 11.6-14.6 [facility] Serum or plasma cholesterol in HDL measurement (mass/volume)on 11-17-2018 Cholesterol in HDL [Mass/Vol] 38 mg/dL Low >40 [facility] Comment on above: The drugs N-Acetylcy steine and Metamizole may falsely depress this assay. Reference Range HDL <40 mg/dL Low HDL Cholesterol HDL >or= 60 mg/dL High HDL Cholesterol Serum or plasma cholesterol in VLDL measurement (mass/volume)on 11-17-2018 Cholesterol in VLDL [Mass/Vol] 39 mg/dL 5-40 [facility] Serum or plasma low density lipoprotein (LDL) cholesterol measurement (mass/volume)on 11-17-2018 Cholesterol in LDL [Mass/Vol] 98 mg/dL 0-130 [facility] Total cell counton 9 Cells counted [employer] (Bld/Tiss) [#] Not Reportable [facility] Trichomonas screening teston 11-17-2018 Cholesterol [Mass/Vol] 175 mg/dL <200 [facility] Comment on above: <200 mg/dL Desirable 200-240 mg/dL Borderline >240 mg/dL High Risk Triglyceride [Mass/Vol] 194 mg/dL <199 [facility] Comment on above: The drugs N-Acetylcy steine and Metamizole may falsely depress this assay.Serum Triglycerides Reference Interval Normal <150 mg/dL Borderline high 150 - 199 mg/dL High 200 - 499 mg/dL Very High > or = 500 mg/dL No Panel Informationon 04-21 Addendum Document Comment . [facility] Comment on above: Protein electrophore sis scan will follow via computer,mail, or rubber and pounder delivery. Beta-Globulins (MIGUEL) 1.2 g/dL 0.7-1.3 [place] [facility] [place] Light Chains, Quant 75.1 mg/L High 3.3-19.4 [facility] Free [place]/Lambda Light Chain Ratio 2.03 High 0.26-1.65 [facility] Immunofixation Screen Comment . [facility] Comment on above: No monoclonality det ected. Urine Albumin 73.2 % . [facility] Urine [id number] 3.9 % . [facility] Urine Beta Globulin 11.4 % . [facility] Urine Gamma Globulin 10.2 % . [place] Urine Immunofixation PEP Note Comment . [facility] Comment on above: Protein electrophore sis scan will follow via computer,mail, or rubber and pounder delivery. Protein electrophoresis pane gina 04-21-2018 Protein [Mass/Vol] 7.8 g/dL 6.0-8.5 [facility] Serum [id number] measu rement by electrophoresison 04-21-2018 Alpha 1 globulin Elph [Mass/Vol] 0.2 g/dL 0.0-0.4 [facility] Serum globulin measurement ( mass/volume)on 04-21-2018 Globulin (S) [Mass/Vol] 4.3 g/dL High 2.2-3.9 [facility] Serum or plasma IgA measurem ent (mass/volume)on 04-21-2018 IgA [Mass/Vol] 172 mg/dL 90-386 [facility] Serum or plasma IgG measurem ent (mass/volume)on 04-21-2018 IgG [Mass/Vol] 1902 mg/dL High 700-1600 [facility] Serum or plasma IgM measurem ent (mass/volume)on 04-21-2018 IgM [Mass/Vol] 106 mg/dL 20-172 [facility] Serum or plasma albumin yin urement (moles/volume)on 04-21-2018 Albumin [Moles/Vol] 3.5 g/dL 2.9-4.4 [facility] Serum or plasma erythropoiet in (EPO) measurement (units/volume)on 04-21-2018 Erythropoietin (EPO) Qn 12.8 mIU/mL 2.6-18.5 [facility] Comment on above: [employer] el DxI 800 Immunoassay SystemPerformed at: [id number] [id number] Director: Willy Gimenez PhD, Phone: [phone] Serum or plasma immunoglobul in free lambda light chains measurement (mass/volume)on 04-21-2018 Immunoglobulin light chains.lambda.free [Mass/Vol] 37.0 mg/L High 5.7-26.3 [facility] Trichomonas screening teston 04-21-2018 LDH [Catalytic activity/Vol] 228 U/L 87-241 [facility] Urine [id number] measu rement by protein electrophoresison 04-21-2018 Alpha 1 globulin Elph (U) [Mass/Vol] 1.4 % . [facility] Urine protein measurement (m ass/volume)on 04-21-2018 Protein (U) [Mass/Vol] 78.0 mg/dL Not Estab. Wo [facility] Vitamin B12 ser/plason 04-21 Cobalamin (Vitamin B12) [Mass/Vol] 706 pg/mL 211-911 [facility] Vital Signs Date Time Vital Sign Value Performing Clinician Facility 03-02-2025 14:02-0400 Body height 176.[address] Arsenio Monique MD Work Phone: [facility] 03-02-2025 14:02-0400 Body mass index (BMI) [Ratio] 32.3 kg/m2 Dr. Arsenio Monique MD Work Phone: [facility] 03-02-2025 14:02-0400 Body temperature 98.3 [degF] Dr. Arsenio Monique MD Work Phone: [facility] 03-02-2025 14:02-0400 Body weight 100.[address] Arsenio Monique MD Work Phone: [facility] 03-02-2025 14:02-0400 Diastolic blood pressure 72 mm[Hg] Dr. Arsenio Monique MD Work Phone: [facility] 03-02-2025 14:02-0400 Heart rate 60 /min Dr. Arsenio Monique MD Work Phone: [facility] 03-02-2025 14:02-0400 Respiratory rate 16 /min Dr. Arsenio Monique MD Work Phone: [facility] 03-02-2025 14:02-0400 SaO2% (BldA) [Mass fraction] 98 % Dr. Arsenio Monique MD Work Phone: [facility] 03-02-2025 14:02-0400 Systolic blood pressure 147 mm[Hg] Dr. Arsenio Monique MD Work Phone: [facility] 03-02-2025 12:14-0400 Body height 176.[address] Arsenio Monique MD Work Phone: [facility] 03-02-2025 12:14-0400 Body mass index (BMI) [Ratio] 32.3 kg/m2 Dr. Arsenio Monique MD Work Phone: [facility] 03-02-2025 12:14-0400 Body temperature 98.4 [degF] Dr. Arsenio Monique MD Work Phone: [facility] 03-02-2025 12:14-0400 Body weight 100.[address] Arsenio Monique MD Work Phone: [facility] 03-02-2025 12:14-0400 Diastolic blood pressure 79 mm[Hg] Dr. Arsenio Monique MD Work Phone: [facility] 03-02-2025 12:14-0400 Heart rate 64 /min Dr. Arsenio Monique MD Work Phone: [facility] 03-02-2025 12:14-0400 Respiratory rate 18 /min Dr. Arsenio Monique MD Work Phone: [facility] 03-02-2025 12:14-0400 SaO2% (BldA) [Mass fraction] 97 % Dr. Arsenio Monique MD Work Phone: [facility] 03-02-2025 12:14-0400 Systolic blood pressure 152 mm[Hg] Dr. Arsenio Monique MD Work Phone: [facility] 02-05-2025 09:19-0400 Diastolic blood pressure 70 mm[Hg] Arsenio Monique MD Work Phone: [facility] 02-05-2025 09:19-0400 Systolic blood pressure 136 mm[Hg] Arsenio Monique MD Work Phone: [facility] 02-05-2025 09:10-0400 Body height 176.5 cm Arsenio Monique MD Work Phone: [facility] 02-05-2025 09:10-0400 Body mass index (BMI) [Ratio] 32.83 kg/m2 Arsenio Monique MD Work Phone: [facility] 02-05-2025 09:10-0400 Body temperature 97.81 [degF] Arsenio Monique MD Work Phone: [facility] 02-05-2025 09:10-0400 Body weight 102.3 kg Arsenio Monique MD Work Phone: [facility] 02-05-2025 09:10-0400 Heart rate 63 /min Arsenio Monique MD Work Phone: [facility] 02-05-2025 09:10-0400 Respiratory rate 16 /min Arsenio Monique MD Work Phone: [facility] 02-05-2025 09:10-0400 SaO2% (BldA) [Mass fraction] 98 % Arsenio Monique MD Work Phone: [facility] 07-31-2024 09:40-0500 Diastolic blood pressure 70 mm[Hg] Arsenio Monique MD Work Phone: [facility] 07-31-2024 09:40-0500 Systolic blood pressure 138 mm[Hg] Arsenio Monique MD Work Phone: [facility] 07-31-2024 08:48-0500 Body height 176.5 cm Arsenio Monique MD Work Phone: [facility] 07-31-2024 08:48-0500 Body mass index (BMI) [Ratio] 33.41 kg/m2 Arsenio Monique MD Work Phone: [facility] 07-31-2024 08:48-0500 Body temperature 97.5 [degF] Arsenio Monique MD Work Phone: [facility] 07-31-2024 08:48-0500 Body weight 104.1 kg Arsenio Monique MD Work Phone: [facility] 07-31-2024 08:48-0500 Heart rate 61 /min Arsenio Monique MD Work Phone: [facility] 07-31-2024 08:48-0500 Respiratory rate 16 /min Arsenio Monique MD Work Phone: [facility] 07-31-2024 08:48-0500 SaO2% (BldA) [Mass fraction] 98 % Arsenio Monique MD Work Phone: [facility] 06-07-2023 08:27-0400 Diastolic blood pressure 84 mm[Hg] Camelia Calixto APRN.CNP Work Phone: [facility] 06-07-2023 08:27-0400 Systolic blood pressure 142 mm[Hg] Camelia Calixto [employer]NS CLE[employer]ER.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 Work Phone: [facility] 06-07-2023 07:53-0400 Body height 176.5 cm Camelianicolasa Calixto SIGNS CLE[employer]ER.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 Work Phone: [facility] 06-07-2023 07:53-0400 Body weight 105.19 kg Camelia Marily [employer]NS CLE[employer]ER.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 Work Phone: [facility] 06-07-2023 07:53-0400 Heart rate 67 /min Camelia Marily SIGNS CLE[employer]ER.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 Work Phone: [facility] 06-07-2023 07:53-0400 SaO2% (BldA) [Mass fraction] 99 % Camelia Calixto SIGNS CLEANER.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 Work Phone: [facility] 11-16-2022 08:53-0400 Diastolic blood pressure 70 mm[Hg] Arsenio Monique MD Work Phone: [facility] 11-16-2022 08:53-0400 Systolic blood pressure 138 mm[Hg] Arsenio Monique MD Work Phone: [facility] 11-16-2022 08:22-0400 Body height 176.5 cm Arsenio Monique MD Work Phone: [facility] 11-16-2022 08:22-0400 Body temperature 98.2 [degF] Arsenio Monique MD Work Phone: [facility] 11-16-2022 08:22-0400 Body weight 106.14 kg Arsenio Monique MD Work Phone: [facility] 11-16-2022 08:22-0400 Heart rate 65 /min Arsenio Monique MD Work Phone: [facility] 11-16-2022 08:22-0400 Respiratory rate 16 /min Arsenio Monique MD Work Phone: [facility] 11-16-2022 08:22-0400 SaO2% (BldA) [Mass fraction] 97 % Arsenio Monique MD Work Phone: [facility] 08-28-2022 11:45-0500 Body height 176.[address] Arsenio Monique Work Phone: [facility] Work Phone: 08-28-2022 11:45-0500 Body mass index (BMI) [Ratio] 33.6 kg/m2 Dr. Arsenio Monique Work Phone: [facility] Work Phone: 08-28-2022 11:45-0500 Body temperature 97 [degF] Dr. Arsenio Monique Work Phone: [facility] Work Phone: 08-28-2022 11:45-0500 Body weight 104.[address] Arsenio Monique Work Phone: [facility] Work Phone: 08-28-2022 11:45-0500 Diastolic blood pressure 102 mm[Hg] Dr. Arsenio Monique Work Phone: [facility] Work Phone: 08-28-2022 11:45-0500 Heart rate 62 /min Dr. Arsenio Monique Work Phone: [facility] Work Phone: 08-28-2022 11:45-0500 Respiratory rate 16 /min Dr. Arsenio Monique Work Phone: [facility] Work Phone: 08-28-2022 11:45-0500 SaO2% (BldA) [Mass fraction] 97 % Dr. Arsenio Monique Work Phone: [facility] Work Phone: 08-28-2022 11:45-0500 Systolic blood pressure 170 mm[Hg] Dr. Arsenio Monique Work Phone: [facility] Work Phone: 05-10-2022 08:16-0400 Diastolic blood pressure 76 mm[Hg] Camelia Calixto SIGNS CLEANER.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 Work Phone: [facility] 05-10-2022 08:16-0400 Systolic blood pressure 128 mm[Hg] Camelia Calixto SIGNS CLEANER.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 Work Phone: [facility] 05-10-2022 07:50-0400 Body temperature 97.81 [degF] Camelia Calixto SIGNS CLEANER.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 Work Phone: [facility] 05-10-2022 07:50-0400 Body weight 102.6 kg Camelia Calixto SIGNS CLEANER.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 Work Phone: [facility] 05-10-2022 07:50-0400 Heart rate 63 /min Camelia Calixto SIGNS CLEANER.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 Work Phone: [facility] 05-10-2022 07:50-0400 Respiratory rate 16 /min Caemlia Calixto SIGNS CLEANER.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 Work Phone: [facility] 05-10-2022 07:50-0400 SaO2% (BldA) [Mass fraction] 98 % Camelia Calixto SIGNS CLEANER.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 Work Phone: [facility] 04-26-2022 07:22-0400 Body height 176.5 cm Bogdan Weeks MD Work Phone: [facility] 04-26-2022 07:22-0400 Body temperature 98.4 [degF] Bogdan Weeks MD Work Phone: [facility] 04-26-2022 07:22-0400 Body weight 101.61 kg Bogdan Weeks MD Work Phone: [facility] 04-26-2022 07:22-0400 Diastolic blood pressure 95 mm[Hg] Bogdan Weeks MD Work Phone: [facility] 04-26-2022 07:22-0400 Heart rate 84 /min Bogdan Weeks MD Work Phone: [facility] 04-26-2022 07:22-0400 SaO2% (BldA) [Mass fraction] 96 % Bogdan Weeks MD Work Phone: [facility] 04-26-2022 07:22-0400 Systolic blood pressure 164 mm[Hg] Bogdan Weeks MD Work Phone: [facility] 02-01-2020 14:58-0400 Body mass index (BMI) [Ratio] 34.6 kg/m2 Dr. Arsenio Monique MD Work Phone: [facility] 02-01-2020 14:58-0400 Body temperature 98.2 [degF] Dr. Arsenio Monique MD Work Phone: [facility] 02-01-2020 14:58-0400 Diastolic blood pressure 80 mm[Hg] Dr. Arsenio Monique MD Work Phone: [facility] 02-01-2020 14:58-0400 Heart rate 66 /min Dr. Arsenio Monique MD Work Phone: [facility] 02-01-2020 14:58-0400 Respiratory rate 16 /min Dr. Arsenio Monique MD Work Phone: [facility] 02-01-2020 14:58-0400 SaO2% (BldA) [Mass fraction] 97 % Dr. Arsenio Monique MD Work Phone: [facility] 02-01-2020 14:58-0400 Systolic blood pressure 122 mm[Hg] Dr. Arsenio Monique MD Work Phone: [facility] 05-24-2019 15:54-0400 Body weight 219 LB/KG [facility] Comment on above: Performed By: #### LPT #### [address] [address] Encounters Encounter Date Encounter Type Care Provider Facility Start: 03-02-[address] Kari Moreno MD -[facility] Start: 03-02-2025 End: 03-02-2025 ambulatory Janice Buitrago NP Facility:[facility] Start: 03-02-2025 End: 03-02-2025 Patient encounter procedure Janice Buitrago CONTRACTS [employer]- -[facility] Work Phone: Start: 02-13-2025 End: 02-13-2025 ambulatory ARSENIO A KAYDEN Facility:[facility] Start: 02-05-2025 End: 02-05-2025 Office outpatient visit 25 minutes Arsenio Monique MD Work Phone: [facility] [place] Comment on above: Type 2 diabetes boone itus with stage 3a chronic kidney disease, without long-term current use of insulin (HCC) (Primary Dx); Cirrhosis of liver without ascites, unspecified hepatic cirrhosis type (HCC); Screening for colon cancer; Prostate cancer screening; Mixed hyperlipidemia Start: 02-05-2025 End: 02-05-2025 ambulatory ARSENIO A KAYDEN Facility:[facility] Start: 01-11-2025 End: 01-11-2025 Telephone encounter Arsenio Monique MD Work Phone: [facility] [place] Comment on above: Results Start: 01-09-2025 End: 01-09-2025 ambulatory ARSENIO A KAYDEN Facility:[facility] Start: 08-14-2024 End: 08-14-2024 ambulatory ARSENIO A KAYDEN Facility:[facility] Start: 08-12-2024 End: 08-22-2024 Telephone encounter Arsenio Monique MD Work Phone: [facility] [place] Comment on above: Lab Orders (Work req uest) Start: 08-07-2024 End: 08-07-2024 ambulatory VALORIE GUZMAN Facility:[facility] Start: 08-05-2024 End: 08-05-2024 ambulatory ARSENIO A KAYDEN Facility:[facility] Start: 07-31-2024 End: 07-31-2024 ambulatory ARSENIO A KAYDEN Facility:[facility] Start: 07-31-2024 End: 07-31-2024 Office outpatient visit 25 minutes Arsenio Monique MD Work Phone: [facility] Comment on above: Type 2 diabetes boone itus without complication, without long- term current use of insulin (HCC) (Primary Dx); Hyperlipidemia, unspecified hyperlipidemia type; Cirrhosis of liver without ascites, unspecified hepatic cirrhosis type (HCC); Thrombocytopenia (HCC); Type 2 diabetes mellitus with stage 3a chronic kidney disease, without long-term current use of insulin (HCC); Prostate cancer screening; Screening for colon cancer; History of colonic polyps Start: 07-28-2024 End: 07-28-2024 ambulatory ARSENIO BAKERERS Facility:[facility] Start: 07-14-2024 End: 07-17-2024 ambulatory Arsenio Monique MD Work Phone: [place] [address] Start: 06-15-2024 End: 06-17-2024 Telephone encounter Arsenio Monique MD Work Phone: [facility] Comment on above: Results Start: 06-13-2024 End: 06-13-2024 ambulatory ARSENIO BAKERERS Facility:[facility] Start: 07-13-2023 Refill Arseino garrido MD Work Phone: [facility] Comment on above: Refill Request Start: 07-08-2023 Telephone encounter Arsenio Monique MD Work Phone: [facility] Comment on above: Diabetic Eye Exam ([facility] ) Start: 06-11-2023 Telephone encounter Camelia Calixto APRN.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 Work Phone: [facility] Comment on above: Results Start: 06-07-2023 End: 06-07-2023 Subsequent hospital visit by physician [facility] Comment on above: Chronic hepatitis C without hepatic coma (HCC) [B18.2] Start: 06-07-2023 End: 06-07-2023 Office outpatient visit 25 minutes Camelia Calixto APRN.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 Work Phone: [facility] Comment on above: Essential hypertensi on (Primary Dx); Type 2 diabetes mellitus without complication, without long-term current use of insulin (HCC); History of hepatitis C; Cirrhosis of liver without ascites, unspecified hepatic cirrhosis type (HCC); Hyperlipidemia, unspecified hyperlipidemia type; Stage 3b chronic kidney disease (HCC); Obesity, Class I, BMI 30-34.9; Prostate cancer screening Start: 12-31-2022 Refill Arsenio garrido MD Work Phone: [facility] Comment on above: Refill Request Start: 12-31-2022 Refill Arsenio garrido MD Work Phone: [facility] Comment on above: Refill Request Start: 11-27-2022 ambulatory Arsenio garrido MD Work Phone: [facility] Comment on above: Results Start: 11-20-2022 Orders Only Arsenio garrido MD Work Phone: [facility] Comment on above: Type 2 diabetes boone itus with stage 3a chronic kidney disease, without long-term current use of insulin (HCC) (Primary Dx) Orders Start: 11-16-2022 End: 11-16-2022 Patient encounter status Arsenio Monique MD Work Phone: [facility] Start: 11-16-2022 End: 11-16-2022 Periodic preventive med est patient 40-64yrs Arsenio Monique MD Work Phone: [facility] Comment on above: Well adult exam ([facility] Dx); Screening for colon cancer; Type 2 diabetes mellitus with stage 3a chronic kidney disease, without long-term current use of insulin (HCC); Essential hypertension; Hyperlipidemia, unspecified hyperlipidemia type; History of hepatitis C; Thrombocytopenia (HCC) Start: 09-07-2022 Telephone encounter Arsenio Monique MD Work Phone: [facility] Comment on above: Patient Update outside notes; Abdom inal Pain Start: 08-28-2022 End: 08-28-[address] Arsenio Monique Work Phone: [facility] Work Phone: Start: 08-28-2022 End: 08-28-[address] Arsenio Monique Work Phone: [facility] Start: 08-28-2022 End: 08-28-[address] Arsenio Monique Work Phone: [facility] Start: 08-22-2022 Telephone encounter Arsenio Monique MD Work Phone: [facility] [place] Comment on above: Patient Update Start: 07-02-2022 Telephone encounter Arsenio Monique MD Work Phone: [facility] [place] Comment on above: Patient Request (Yelena mora is on the road now and unable to get the letter he needs can the office fax the letter to the [facility] in [place] ) Start: 05-22-2022 Telephone encounter Camelia Calixto APRN.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 Work Phone: [facility] [place] Comment on above: Results Start: 05-13-2022 ambulatory Camelia vera APRN.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 Work Phone: [facility] [place] Comment on above: Results Start: 05-10-2022 End: 05-10-2022 Office outpatient visit 25 minutes Camelia Calixto APRN.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 Work Phone: [facility] [place] Comment on above: Type 2 diabetes boone itus without complication, without long- term current use of insulin (HCC) (Primary Dx); Essential hypertension; Hyperlipidemia, unspecified hyperlipidemia type; Anemia, unspecified type; Encounter for immunization Start: 05-01-2022 Telephone encounter Bogdan Weeks MD Work Phone: [facility] Comment on above: Attending Physician Statement Start: 04-26-2022 Telephone encounter Bogdan Weeks MD Work Phone: [facility] Comment on above: FMLA Paperwork Start: 04-26-2022 End: 04-26-2022 Patient encounter procedure Bogdan Weeks MD Work Phone: [facility] Comment on above: Cholecystitis (Prima ry Dx) Start: 04-16-2022 Patient Outreach Kelly Spence Samia Gómez [employer] Director Management Comment on above: Transition Of Care ( TCM initial outreach discharge 04/15) Start: 03-09-2022 Telephone encounter Arsenio Monique MD Work Phone: [facility] [place] Comment on above: Question (Lancet new device) Refill Request (SEE RX NOTES) Start: 03-07-2022 Refill Arsenio garrido MD Work Phone: [facility] [place] Start: 12-12-2021 Telephone encounter Camelia Calixto SIGNS CLEANER.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 Work Phone: Internal [facility] Comment on above: Results Procedures Date Procedure Procedure Detail Performing Clinician Start: 03-02-[address] Arsenio Monique MD Work Phone: Start: 03-02-[address] fraction Dr. Arsenio Monique MD Work Phone: Start: 03-02-2025 Total iron binding capacity measurement Dr. Arsenio Monique MD Work Phone: Start: 03-02-[address] Carl Monique MD Work Phone: Start: 08-28-[address] Carl Monique Work Phone: Start: 05-10-2022 Adult depression scr eening assessment Camelia Calixto SIGNS CLEANER.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 Work Phone: Start: 01-27-2021 Adult depression scr eening assessment Camelia Calixto SIGNS CLEANER.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 Work Phone: Start: 04-21-2018 Allergen spec ige cr ude allergen extract each Dr. Arsenio Monique MD Work Phone: Comment on above: Not Observed Start: 10-01-2014 Colonoscopy Camelia vines SIGNS CLEANER.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 Work Phone: Plan of Treatment Date Care Activity Detail Author Start: 06-13-2029 Prostate specific antigen measurement Prostate Cancer Screening Discussion [facility] Start: 06-07-2028 Prostate Cancer Screening Discussion Prostate Cancer Screening Discussion [facility] Start: 03-07-2028 Urine microalbumin profile [facility] Start: 02-05-2026 Annual PCP Team 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 bronson Disease Visit Annual PCP Team Chronic Disease Visit [facility] Start: 01-09-2026 Complete blood count Hemoglobin/Peña tocdet [facility] Start: 01-09-2026 Creatinine measurement Serum Creatin ine [facility] Start: 01-09-2026 Hepatitis B screening Urine Al bumin:Creatinine Ratio [facility] Start: 01-09-2026 Hepatitis B surface antibody level LDL Cholesterol [facility] Start: 11-19-2025 PROSTATE CANCER SCREENING DISCUSSION PROSTATE CANCER SCREENING DISCUSSION [facility] Start: 08-14-2025 Creatinine measurement Serum Creatin ine [facility] Start: 08-14-2025 Hepatitis B surface antibody level LDL Cholesterol [facility] Start: 08-07-2025 Hepatitis B screening Urine Al bumin:Creatinine Ratio [facility] Start: 08-05-2025 Complete blood count Hemoglobin/Peña tocdet [facility] Start: 07-31-2025 Annual PCP Team 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 bronson Disease Visit Annual PCP Team Chronic Disease Visit [facility] Start: 07-28-2025 Hepatitis B surface antibody level LDL Cholesterol [facility] Start: 07-24-2025 End: 07-24-2025 Patient encounter procedure 07/24/2025 8:00 AM EST Office Visit [facility] [place] [address] [address] Arsenio Monique MD [address] [place] [address] 6 month follow up [facility] [place] Comment on above: 6 month follow up Start: 07-12-2025 Hemoglobin A1c measurement HbA1C [facility] Start: 07-12-2025 End: 07-12-2025 Patient encounter procedure 07/12/2025 7:30 AM EST Appointment [facility] [address] [place] [address] Bogdan Weeks MD [address] [place] [address] Screening for colon cancer [Z12.11]; History of colonic polyps [Z86.0100] [facility] Comment on above: Screening for colon cancer [Z12.11]; History of colonic polyps [Z86.0100] Start: 07-05-2025 End: 10-04-2025 CBC panel - Blood by Automated count COMPLETE BLOOD COUNT Lab Routine Type 2 diabetes mellitus with stage 3a chronic kidney disease, without long-term current use of insulin (HCC) Expected: 07/05/2025 (Approximate), Expires: 10/04/2025 [facility] Comment on above: Expected: 07/05/2025 (Approximate), Expires: 10/04/2025 Start: 07-05-2025 End: 10-04-2025 Comprehensive metabolic 2000 panel - Serum or Plasma COMPREHENSIVE METABOLIC PANEL Lab Routine Type 2 diabetes mellitus with stage 3a chronic kidney disease, without long-term current use of insulin (HCC) Cirrhosis of liver without ascites, unspecified hepatic cirrhosis type (HCC) Expected: 07/05/2025 (Approximate), Expires: 10/04/2025 [facility] Comment on above: Expected: 07/05/2025 (Approximate), Expires: 10/04/2025 Start: 07-05-2025 End: 10-04-2025 Hemoglobin A1c in Blood HEMOGLOBIN A1C Lab Routine Type 2 diabetes mellitus with stage 3a chronic kidney disease, without long-term current use of insulin (HCC) Expected: 07/05/2025 (Approximate), Expires: 10/04/2025 [facility] Work Phone: Comment on above: Expected: 07/05/2025 (Approximate), Expires: 10/04/2025 Start: 07-05-2025 End: 10-04-2025 LIPID PANEL, NONFASTING LIPID PANEL, NONFASTING Lab Routine Type 2 diabetes mellitus with stage 3a chronic kidney disease, without long-term current use of insulin (HCC) Expected: 07/05/2025 (Approximate), Expires: 10/04/2025 [facility] Comment on above: Expected: 07/05/2025 (Approximate), Expires: 10/04/2025 Start: 07-05-2025 End: 10-04-2025 Microalbumin/Creatinine [Mass Ratio] in Urine ALBUMIN/CREATININE RATIO, URINE Lab Routine Type 2 diabetes mellitus with stage 3a chronic kidney disease, without long-term current use of insulin (HCC) Expected: 07/05/2025 (Approximate), Expires: 10/04/2025 [facility] Comment on above: Expected: 07/05/2025 (Approximate), Expires: 10/04/2025 Start: 07-05-2025 End: 10-04-2025 PSA/PROSTATE SPECIFIC ANTIGEN SCREENING PSA/PROSTATE SPECIFIC ANTIGEN SCREENING Lab Routine Prostate cancer screening Expected: 07/05/2025 (Approximate), Expires: 10/04/2025 [facility] Comment on above: Expected: 07/05/2025 (Approximate), Expires: 10/04/2025 Start: 07-03-2025 Glaucoma screening Dilated Retinal E xam [facility] Start: 03-02-2025 [facility] Start: 02-13-2025 Complete blood count Hemoglobin/Peña tocrit [facility] Start: 02-13-2025 Creatinine measurement Serum Creatin ine [facility] Start: 02-13-2025 Hepatitis B screening Urine Al bumin:Creatinine Ratio [facility] Start: 02-05-2025 End: 02-05-2025 Patient encounter procedure 02/05/2025 9:00 AM EDT Office Visit [facility] [place] [address] [address] Arsenio Monique MD [address] [place] [address] 6m follow up [facility] [place] Comment on above: 6m follow up Start: 12-28-2024 End: 03-29-2025 CBC panel - Blood by Automated count COMPLETE BLOOD COUNT Lab Routine Type 2 diabetes mellitus without complication, without long-term current use of insulin (HCC) Expected: 12/28/2024 (Approximate), Expires: 03/29/2025 [facility] Work Phone: Comment on above: Expected: 12/28/2024 (Approximate), Expires: 03/29/2025 Start: 12-28-2024 End: 03-29-2025 Comprehensive metabolic 2000 panel - Serum or Plasma COMPREHENSIVE METABOLIC PANEL Lab Routine Type 2 diabetes mellitus without complication, without long-term current use of insulin (HCC) Expected: 12/28/2024 (Approximate), Expires: 03/29/2025 [facility] Comment on above: Expected: 12/28/2024 (Approximate), Expires: 03/29/2025 Start: 12-28-2024 End: 03-29-2025 Hemoglobin A1c in Blood HEMOGLOBIN A1C Lab Routine Type 2 diabetes mellitus without complication, without long-term current use of insulin (HCC) Expected: 12/28/2024 (Approximate), Expires: 03/29/2025 [facility] Comment on above: Expected: 12/28/2024 (Approximate), Expires: 03/29/2025 Start: 12-28-2024 End: 03-29-2025 Lipid 1996 panel - Serum or Plasma LIPID PANEL BASIC Lab Routine Type 2 diabetes mellitus without complication, without long-term current use of insulin (HCC) Expected: 12/28/2024 (Approximate), Expires: 03/29/2025 [facility] Comment on above: Expected: 12/28/2024 (Approximate), Expires: 03/29/2025 Start: 12-28-2024 End: 03-29-2025 Microalbumin/Creatinine [Mass Ratio] in Urine ALBUMIN/CREATININE RATIO, URINE Lab Routine Type 2 diabetes mellitus without complication, without long-term current use of insulin (HCC) Expected: 12/28/2024 (Approximate), Expires: 03/29/2025 [facility] Comment on above: Expected: 12/28/2024 (Approximate), Expires: 03/29/2025 Start: 12-12-2024 Hemoglobin A1c measurement HbA1C [facility] Start: 12-06-2024 Covid-19 Vaccine () Covid-19 Vaccine () [facility] Start: 09-21-2024 Hepatitis B surface antibody level LDL Cholesterol [facility] Start: 09-02-2024 Advance Directive Discussion Advance Directive Discussion [facility] Start: 07-31-2024 End: 07-31-2024 Patient encounter procedure 07/31/2024 9:00 AM EST Office Visit Internal Medicine [address] [address] Arsenio Monique MD [address] [place] [address] follow up, [facility] [place] Comment on above: follow up, Start: 07-14-2024 End: 10-13-2024 Lipid 1996 panel - Serum or Plasma LIPID PANEL BASIC Lab Routine Hyperlipidemia Expected: 07/14/2024, Expires: 10/13/2024 [facility] Work Phone: Comment on above: Expected: 07/14/2024 , Expires: 10/13/2024 Start: 07-05-2024 Glaucoma screening Dilated Retinal E xam [facility] Start: 07-05-2024 Hepatitis C antibody , confirmatory test Dilated Retinal Exam [facility] Start: 06-07-2024 Abdominal Aortic Aneurysm Screening Abdominal Aortic Aneurysm Screening [facility] Comment on above: Postponed from 02/21 (Declined at this time) Start: 06-07-2024 Annual PCP Team 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 Disease Visit Annual PCP Team Chronic Disease Visit [facility] Start: 05-25-2024 Hemoglobin/Hematocrit Hemoglobin/Hem atocrit [facility] Start: 05-25-2024 Hepatitis B surface antibody level LDL Cholesterol [facility] Start: 05-25-2024 Serum Creatinine Serum Creatinine Cl [facility] Start: 03-30-2024 Hepatitis B screening Urine Al bumin:Creatinine Ratio [facility] Start: 01-13-2024 Colorectal Cancer Screening Colorectal Cancer Screening [facility] Start: 01-13-2024 Fecal Occult Blood Fecal Occult Bloo d [facility] Start: 01-13-2024 Screening for malign ant neoplasm of colon [facility] Start: 11-25-2023 Hepatitis B surface antibody level LDL CHOLESTEROL [facility] Start: 11-23-2023 Hemoglobin A1c/Hemoglobin.total in Blood HbA1C [facility] Start: 11-17-2023 3 comp foot exam completed DIABETIC FOOT EXAM [facility] Start: 11-17-2023 ANNUAL PCP TEAM FACILITIES ENGINEER BRONSON DISEASE VISIT ANNUAL PCP TEAM CHRONIC DISEASE VISIT [facility] Start: 11-17-2023 Diabetic foot examination Diabetic Foot Exam [facility] Start: 11-11-2023 HEMOGLOBIN/HEMATOCRIT HEMOGLOBIN/HEM ATOCRIT [facility] Start: 11-11-2023 SERUM CREATININE SERUM CREATININE Cl [facility] Start: 09-02-2023 Advance Directive Discussion Advance Directive Discussion [facility] Start: 08-11-2023 Hepatitis B screening URINE AL BUMIN:CREATININE RATIO [facility] Start: 08-11-2023 SERUM CREATININE SERUM CREATININE [facility] Start: 07-23-2023 Hepatitis C antibody , confirmatory test DILATED RETINAL EXAM [facility] Start: 05-19-2023 HEMOGLOBIN/HEMATOCRIT HEMOGLOBIN/HEM ATOCRIT [facility] Start: 05-15-2023 End: 07-15-2023 CBC panel - Blood by Automated count CBC Lab Routine Type 2 diabetes mellitus with stage 3a chronic kidney disease, without long-term current use of insulin (HCC) Expected: 05/15/2023, Expires: 07/15/2023 [facility] Work Phone: Comment on above: Expected: 05/15/2023 , Expires: 07/15/2023 Start: 05-15-2023 End: 07-15-2023 Comprehensive metabolic 2000 panel - Serum or Plasma COMP METABOLIC PANEL Lab Routine Type 2 diabetes mellitus with stage 3a chronic kidney disease, without long-term current use of insulin (HCC) Expected: 05/15/2023, Expires: 07/15/2023 [facility] Work Phone: Comment on above: Expected: 05/15/2023 , Expires: 07/15/2023 Start: 05-15-2023 End: 07-15-2023 Hemoglobin A1c in Blood HGB A1C Lab Routine Type 2 diabetes mellitus with stage 3a chronic kidney disease, without long-term current use of insulin (HCC) Expected: 05/15/2023, Expires: 07/15/2023 [facility] Work Phone: Comment on above: Expected: 05/15/2023 , Expires: 07/15/2023 Start: 05-15-2023 End: 07-15-2023 Lipid 1996 panel - Serum or Plasma LIPID PANEL BASIC Lab Routine Type 2 diabetes mellitus with stage 3a chronic kidney disease, without long-term current use of insulin (HCC) Expected: 05/15/2023, Expires: 07/15/2023 [facility] Work Phone: Comment on above: Expected: 05/15/2023 , Expires: 07/15/2023 Start: 05-13-2023 Hemoglobin A1c/Hemoglobin.total in Blood HBA1C [facility] Start: 05-10-2023 Adult depression screening assessment DEPRESSION SCREENING [facility] Start: 05-10-2023 ANNUAL PCP TEAM FACILITIES ENGINEER BRONSON DISEASE VISIT ANNUAL PCP TEAM CHRONIC DISEASE VISIT [facility] Start: 05-10-2023 BP CONTROLLED (<130/80) BP CONTROLLE D (<130/80) [facility] Start: 05-10-2023 HEMOGLOBIN/HEMATOCRIT HEMOGLOBIN/HEM ATOCRIT [facility] Start: 05-10-2023 Hepatitis B screening URINE AL BUMIN:CREATININE RATIO [facility] Start: 05-10-2023 Hepatitis B surface antibody level LDL CHOLESTEROL [facility] Start: 05-10-2023 SERUM CREATININE SERUM CREATININE Cl [facility] Start: 05-03-2023 Covid-19 Vaccine (2022- season) Covid-19 Vaccine () [facility] Start: 05-03-2023 Influenza vaccination [facility] Start: 04-15-2023 HEMOGLOBIN/HEMATOCRIT HEMOGLOBIN/HEM ATOCRIT [facility] Start: 04-15-2023 SERUM CREATININE SERUM CREATININE Cl [facility] Start: 2023 Advance Directive Discussion Advance Directive Discussion [facility] Start: 2023 Covid-19 Vaccine (5 - Moderna series) Covid-19 Vaccine (5 - Moderna series) [facility] Start: 02-03-2023 HEMOGLOBIN/HEMATOCRIT HEMOGLOBIN/HEM ATOCRIT [facility] Start: 02-03-2023 Hepatitis B screening URINE AL BUMIN:CREATININE RATIO [facility] Start: 02-03-2023 SERUM CREATININE SERUM CREATININE Cl [facility] Start: 12-09-2022 COLORECTAL CANCER SCREENING COLORECTAL CANCER SCREENING [facility] Start: 12-09-2022 FECAL OCCULT BLOOD FECAL OCCULT BLOO D [facility] Start: 11-20-2022 3 comp foot exam completed DIABETIC FOOT EXAM [facility] Start: 11-20-2022 ANNUAL PCP TEAM FACILITIES ENGINEER BRONSON DISEASE VISIT ANNUAL PCP TEAM CHRONIC DISEASE VISIT [facility] Start: 11-20-2022 End: 01-20-2023 Lipid 1996 panel - Serum or Plasma LIPID PANEL BASIC Lab Routine Type 2 diabetes mellitus with stage 3a chronic kidney disease, without long-term current use of insulin (HCC) Expected: 11/20/2022, Expires: 01/20/2023 [facility] Work Phone: Comment on above: Expected: 11/20/2022 , Expires: 01/20/2023 Start: 11-07-2022 Hemoglobin A1c/Hemoglobin.total in Blood HBA1C [facility] Start: 11-06-2022 End: 01-06-2023 CBC panel - Blood by Automated count CBC Lab Routine Anemia, unspecified type Expected: 11/06/2022, Expires: 01/06/2023 [facility] Work Phone: Comment on above: Expected: 11/06/2022 , Expires: 01/06/2023 Start: 11-06-2022 End: 01-06-2023 Comprehensive metabolic 2000 panel - Serum or Plasma COMP METABOLIC PANEL Lab Routine Type 2 diabetes mellitus without complication, without long-term current use of insulin ([facility]) Expected: 11/06/2022, Expires: 01/06/2023 [facility] Work Phone: Comment on above: Expected: 11/06/2022 , Expires: 01/06/2023 Start: 11-06-2022 End: 01-06-2023 Hemoglobin A1c in Blood HGB A1C Lab Routine Type 2 diabetes mellitus without complication, without long-term current use of insulin ([facility]) Expected: 11/06/2022, Expires: 01/06/2023 [facility] Work Phone: Comment on above: Expected: 11/06/2022 , Expires: 01/06/2023 Start: 09-09-2022 HEMOGLOBIN/HEMATOCRIT HEMOGLOBIN/HEM ATOCRIT [facility] Start: 09-09-2022 SERUM CREATININE SERUM CREATININE Cl [facility] Start: 09-02-2022 DEPRESSION ASSESSMENT DEPRESSION ASS ESSMENT [facility] Start: 08-31-2022 Hepatitis B surface antibody level LDL CHOLESTEROL [facility] Start: 06-10-2022 Hepatitis B screening URINE AL BUMIN:CREATININE RATIO [facility] Start: 05-23-2022 Hemoglobin A1c/Hemoglobin.total in Blood HBA1C [facility] Start: 05-03-2022 Influenza vaccination INFLUENZA (#1) [facility] Start: 03-22-2022 COVID-19 VACCINE (4 - Booster for Moderna series) COVID-19 VACCINE (4 - Booster for Moderna series) [facility] Start: 01-27-2022 Adult depression screening assessment DEPRESSION SCREENING [facility] Start: 01-15-2022 COVID-19 VACCINE (4 - Booster for Moderna series) COVID-19 VACCINE (4 - Booster for Moderna series) [facility] Start: 09-02-2021 DEPRESSION ASSESSMENT DEPRESSION ASS ESSMENT [facility] Start: 07-27-2021 COVID-19 VACCINE (3 - Booster for Moderna series) COVID-19 VACCINE (3 - Booster for Moderna series) [facility] Start: 05-03-2021 Hepatitis C antibody , confirmatory test DILATED RETINAL EXAM [facility] Start: 06-12-2020 BP CONTROLLED (<130/80) BP CONTROLLE D (<130/80) [facility] Start: 03-07-2020 PNEUMOCOCCAL (2 - PCV) PNEUMOCOCCAL (2 - PCV) [facility] Start: 2018 RSV Vaccine (1 - 1-d ose 60+ series) RSV Vaccine (1 - 1-dose 60+ series) [facility] Start: 10-01-2015 Colonoscopy COLONOSCOPY [facility] Start: 10-01-2015 Screening for malign ant neoplasm of colon Colonoscopy [facility] Start: 02-22-2008 SHINGRIX VACCINE (1 of 2) SHINGRIX VACCINE (1 of 2) [facility] Start: 2003 COLOGUARD (FIT-DNA) COLOGUARD (FIT-D NA) [facility] Start: [address] COLONOGRAPHY [facility] Start: 2003 Screening for malign ant neoplasm of colon [facility] Start: 2003 SIGMOIDOSCOPY SIGMOIDOSCOPY [facility] Start: 02-22-1976 Anxiety Screening Anxiety Screening [facility] Start: 02-22-1976 Depression Screening Depression Scre ening [facility] Start: 1960 Abdominal aortic aneurysm screening Abdominal Aortic Aneurysm Screening [facility] CT Chest [facility] Hemoglobin.gastroint est inal.lower [Presence] in Stool by Immunoassay FECAL OCCULT BLOOD TEST Lab Routine Screening for colon cancer Ordered: 11/16/2022 [facility] Work Phone: Comment on above: Ordered: 11/16/2022 End: 07-31-2025 Screening colonoscopy COLONOSCOPY SCREENING Endoscopy Routine Screening for colon cancer History of colonic polyps 1 Occurrences starting 07/31/2024 until 07/31/2025 [facility] Comment on above: 1 Occurrences starti ng 07/31/2024 until 07/31/2025 US ABD RIGHT UPPER QUADRANT US ABD RIGHT UPPER QUADRANT Radiology Routine Chronic hepatitis C without hepatic coma (HCC) Fatty liver 06/07/2023 11:13 AM EDT [facility] Work Phone: [facility] Immunizations Immunization Date Immunization Notes Care Provider Demetris hillman 06-07-2024 influenza, high dose seasonal, preservative-free Arsenio Monique MD Work Phone: [facility] 06-07-2023 influenza (HD-IIV4) vaccine, age 65+ yr, high dose, quadrivalent, PF (FLUZONE HIGH-DOSE) Arsenio Monique MD Work Phone: [facility] 06-07-2023 respiratory syncytia l virus (RSV) vaccine, adjuvanted (AREXVY) Arsenio Monique MD Work Phone: [facility] 05-10-2022 pneumococcal (PCV20) vaccine, 20 valent (PREVNAR 20) Camelia Calixto APRN.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 Work Phone: [facility] 05-10-2022 pneumococcal Conjuga te, unspecified formulation Camelia Calixto APRN.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 Work Phone: [facility] Work Phone: 09-09-2021 zoster vaccine recombinant Camelia Calixto APRN.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 Work Phone: [facility] Work Phone: 07-03-2021 influenza, injectabl e, quadrivalent, preservative free Camelia Calixto APRN.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 Work Phone: [facility] Work Phone: 07-03-2021 zoster vaccine recombinant Camelia Rytel SIGNS CLEANER.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 Work Phone: [facility] Work Phone: 07-03-2021 influenza virus vacc ine, unspecified formulation Camelia Rytel SIGNS CLEANER.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 Work Phone: [facility] 05-21-2020 influenza, injectabl e, quadrivalent, preservative free Camelia Rytel SIGNS CLEANER.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 Work Phone: [facility] Work Phone: 05-21-2020 influenza, seasonal, injectable Camelia Rytel SIGNS CLEANER.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 Work Phone: [facility] 06-12-2019 Influenza, injectabl e, Madin Alma Canine Kidney, quadrivalent with preservative Camelia Rytel SIGNS CLEANER.[facility] Work Phone: [facility] 04-20-2019 hepatitis A and hepatitis B vaccine Camelia Rytel SIGNS CLEANER.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 Work Phone: [facility] 03-07-2019 pneumococcal polysaccharide vaccine, 23 valent Camelia Rytel SIGNS CLEANER.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 Work Phone: [facility] 11-10-2018 hepatitis B vaccine, adult dosage Camelia Rytel SIGNS CLEANER.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 Work Phone: [facility] 10-13-2018 hepatitis A and hepatitis B vaccine Camelia Rytel SIGNS CLEANER.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 Work Phone: [facility] 06-29-2018 influenza, seasonal, injectable Camelia Rytel SIGNS CLEANER.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 Work Phone: [facility] 03-07-2018 tetanus toxoid, redu sami diphtheria toxoid, and acellular pertussis vaccine, adsorbed Camelia Rytel SIGNS CLEANER.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 Work Phone: [facility] 07-04-2017 influenza, injectabl e, quadrivalent, contains preservative Camelia Rytel SIGNS CLEANER.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 Work Phone: [facility] 06-29-2016 influenza, injectabl e, quadrivalent, contains preservative Camelia Rytel SIGNS CLEANER.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 Work Phone: [facility] 07-05-2015 influenza, injectabl e, quadrivalent, preservative free Camelia Rytel SIGNS CLEANER.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 Work Phone: [facility] 05-21-2014 influenza, seasonal, injectable Camelia Rytel SIGNS CLEANER.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 Work Phone: [facility] Payers Date Payer Category Payer Self-pay [id number] 2014 Private Health Insurance [facility] CHO[employer] PL[employer] [id number] 2014-Present [phone] [address] [place] [address] O [id number] 2014 Private Health Insurance [id number] 2014 Private Health Insurance [id number] Unknown [facility] PACKAGE PLAN [id number] Unknown [id number] Social History Date Type Detail Facility Start: 10-22-2019 End: 03-02-2025 Tobacco smoking status NHIS Ex-smoker [facility] End: 09-21-2019 History of tobacco use Current smoker [facility] Start: 10-22-2019 End: 07-31-2024 Cigarettes smoked current (pack per day) - Reported 0.5 [facility] Work Phone: Start: 10-22-2019 End: 05-10-2022 Tobacco use and exposure Former smokeless tobacco user [facility] Start: 11-20-2021 End: 06-07-2023 Alcohol intake Current non-drinker of alcohol (finding) [facility] Start: 03-06-2018 End: 05-10-2022 Tobacco Comment in the process of quitting [facility] Start: 1960 Sex Assigned At Not on file [facility] Start: 11-10-2021 End: 05-19-2022 Exposure to SARS-CoV-2 (event) Not sure [facility] End: 09-21-2019 History of tobacco use Cigarette Smoker [facility] Start: 04-14-2021 Tobacco smoking stat us [facility] Unknown if ever smoked [facility] Work Phone: Start: 02-01-2020 Cigarettes [place] [facility] Start: 1960 Sex Assigned At Male [facility] Start: 06-07-2023 End: 07-31-2024 Tobacco use panel [facility] Work Phone: Adult Depression Screening Assessment 0 [facility] Work Phone: Medical Equipment Procedure Code Equipment Code Equipment Original Text Equipment Identifier Dates [id number], [id number], [id number], [id number] Start: 12-17-2018 End: 07-31-2024 Comment on above: Use as instructed USE INSTRUCTED - CHECK SUGAR 1-2 TIMES PER DAY. Testing twice daily. Non-insulin dependent diabetes E 11.22 Use 1 Each in each n ostril twice daily. 1 Each once daily. O ne touch delica Use 1 Each in each n ostril two times a day. Functional Status Date Assessment Result Facility 04-15-2022 Are you deaf, or do you have serious difficulty hearing No 04/15/2022 12:27 PM Olayinka Martinez RN No [facility] 04-15-2022 Are you blind, or do you have serious difficulty seeing, even when wearing glasses No 04/15/2022 12:27 PM Olayinka Martinez RN No [facility] 04-15-2022 Do you have serious difficulty walking or climbing stairs No 04/15/2022 12:27 PM Olayinka Martinez RN No [facility] 04-15-2022 Do you have difficul ty dressing or bathing No 04/15/2022 12:27 PM EDT Olayinka Polanco, RN No [facility] 04-15-2022 Because of a physica l, mental, or emotional condition, do you have difficulty doing errands alone such as visiting a physician's office or shopping No 04/15/2022 12:27 PM EDT Olayinka Polanco, RN No [facility] Mental Status Date Assessment Result Facility 04-15-2022 Because of a physica l, mental, or emotional condition, do you have serious difficulty concentrating, remembering, or making decisions No 04/15/2022 12:27 PM EDT Olaynika Polanco, RN No [facility] Clinical Notes 11-21-2018 to 03-02-2025 Note Date & Type Note Facility 03-02-2025 Evaluation note Diagnosis Onset Date Resolution Encounter for screening for malignant neoplasm of lung in former smoker who acute March 022024 12:07pm History of tobacco use acute 2024 12:07pm Anemia chronic March 02, 2025 1:06pm Hepatitis C acute March 02 2:15pm AYDIN (obstructive sleep apnea) acute March 02, 2025 2:15pm Anemia chronic March 02, 2025 2:15pm Asymptomatic proteinuria chronic March 02, 2025 2:15pm CRF (chronic renal failure) chronic March 02, 2025 2:15pm 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 Author Type: Physician Type: Progress Notes Filed: 02/05/2025 14:44 Note Text: ESTABLISHED PATIENT Henrique Levin is a 64-year-old male with a history of HTN, DM, and hyperlipidemia, presenting for a follow-up visit. HISTORY OF PRESENT ILLNESS Hypertension: - Recently increased Lisinopril to BID dosing, x3 weeks. - Taking Amlodipine 2.5 mg daily. - Denies lower extremity edema. - Blood pressure today: 136/70 mmHg. Diabetes Mellitus: - Recent A1c: 7.4%. - Denies hypoglycemic episodes. - Monitoring blood glucose levels; unable to check this morning due to a battery in the meter. - Follow-up with nephrology pending. Hyperlipidemia: - Taking Lipitor. - Recent LDL: 40 mg/dL. Dietary Changes: - Reduced intake of beef, sugar, and carbohydrates. - Increased consumption of beans, corn tortillas, chicken, and turkey. - Drinking more water. - Lost 5 lbs recently. Upcoming Appointments: - Scheduled for a colonoscopy in July or August. - Chest CT scan scheduled for March 05. - Follow-up with hematology on the . - Eye doctor appointment in July. 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 - Planning to continue working until age 68. - Collecting Social Security benefits soon. Labs: (December) - Hemoglobin A1c: 7.4 - LDL: 40 mg/dL - Liver function: normal - Protein in urine: present ASSESSMENT AND PLAN 1. Type 2 diabetes mellitus with stage 3a chronic kidney disease, without long-term current use of insulin (HCC) (E11.22) - Hemoglobin A1c is 7.4% as of December. - Blood glucose levels are stable without hypoglycemic episodes. - Patient is monitoring dietary intake, reducing carbohydrates and sugars. - Advised tighter glycemic control to potentially reduce proteinuria. - Will re-evaluate HbA1c in 6 months; consider metformin if levels remain elevated. - Continue current antihypertensive regimen: lisinopril increased to BID, amlodipine 2.5 mg daily. - Scheduled urine test to monitor proteinuria. - Follow-up with nephrology. 2. Cirrhosis of liver without ascites, unspecified hepatic cirrhosis type (HCC) (K74.60) - Liver function tests are stable. - Patient is taking liver support supplements. - Continue current management; follow-up with hepatology as needed. 3. Screening for colon cancer (Z12.11) - Colonoscopy scheduled for July or August. 4. Prostate cancer screening (Z12.5) - No current issues reported. - Will continue routine screening as per guidelines. 5. Mixed hyperlipidemia (E78.2) - LDL cholesterol is 40 mg/dL. - Continue atorvastatin (Lipitor) as prescribed. - Re-evaluate lipid panel in 6 months. Patient Instructions - Continue taking lisinopril twice daily as prescribed. - Take 2.5 mg of amlodipine daily (half of your 5 mg tablet). - Keep taking Lipitor as you?ve been doing. - If replacing the battery in your glucose meter doesn?t restore function, let us know so we can provide a new meter. - Complete the urine test tomorrow using the kidney doctor?s prescription. - Maintain your current diet changes: cut back on red meat and sugar, focus on beans, corn, tortillas, poultry, and drink plenty of water. - Track your blood sugars regularly and report any low readings or concerns. - Schedule and complete lab work in about six months (including A1c, kidney function, and lipids); we will enter the orders for you. - Proceed with your colonoscopy in as planned. Orders Placed During This Visit Office Visit on 02/05/25 IMMUNOCHEMICAL FECAL OCCULT BLOOD TEST *Canceled* HEMOGLOBIN A1C COMPLETE BLOOD COUNT COMPREHENSIVE METABOLIC PANEL ALBUMIN/CREATININE RATIO, URINE PSA/PROSTATE SPECIFIC ANTIGEN SCREENING LIPID PANEL, NONFASTING amLODIPine (NORVASC) 5 mg tablet REVIEW OF SYSTEMS Constitutional: (+) weight loss Cardiovascular: (+) lower extremity edema Endocrine: (-) hypoglycemic episodes PHYSICAL EXAM BP 136/70 Pulse 63 Temp 36.6 ?C (97.8 ?F) Resp 16 Ht 176.5 cm (5' 9.5) Wt 102.3 kg (225 lb 8.5 oz) SpO2 98% BMI 32.83 kg/m? General: Well developed, well nourished, in no acute distress. Head: Normocephalic, atraumatic. Neck: Supple. Eyes: Normal conjunctiva, no scleral icterus. Lungs: Clear to auscultation bilaterally, no rubs, no wheezing. Cardiac: Regular rate and rhythm. No murmurs, gallops, or rubs. Extremities: No edema. Allergies: ALLERGIES Allergen Reactions Sulfa (Sulfonamide * Unknown Medications: amLODIPine (NORVASC) 5 mg tablet Take 1 tablet by mouth once daily. atorvastatin (LIPITOR) 80 mg tablet Take 1 tablet by mouth once daily. BEFORE BEDTIME lisinopril (ZESTRIL) 10 mg tablet Take 1 tablet by mouth two times a day. blood sugar diagnostic (ONETOUCH VERIO TEST STRIPS) test strip Testing twice daily. Non-insulin dependent diabetes E 11.22 lancets (ONE TOUCH DEL (more content not included)...[facility] 02-05-2025 History of Present illness Narrative* Arsenio Monique MD - 02/05/2025 9:17 AM EDT ESTABLISHED PATIENT Henrique Levin is a 64-year-old male with a history of HTN, DM, and hyperlipidemia, presenting for a follow-up visit. HISTORY OF PRESENT ILLNESS Hypertension: - Recently increased Lisinopril to BID dosing, x3 weeks. - Taking Amlodipine 2.5 mg daily. - Denies lower extremity edema. - Blood pressure today: 136/70 mmHg. Diabetes Mellitus: - Recent A1c: 7.4%. - Denies hypoglycemic episodes. - Monitoring blood glucose levels; unable to check this morning due to a battery in the meter. - Follow-up with nephrology pending. Hyperlipidemia: - Taking Lipitor. - Recent LDL: 40 mg/dL. Dietary Changes: - Reduced intake of beef, sugar, and carbohydrates. - Increased consumption of beans, corn tortillas, chicken, and turkey. - Drinking more water. - Lost 5 lbs recently. Upcoming Appointments: - Scheduled for a colonoscopy in July or August. - Chest CT scan scheduled for March 05. - Follow-up with hematology on the . - Eye doctor appointment in July. 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 - Planning to continue working until age 68. - Collecting Social Security benefits soon. Labs: (December) - Hemoglobin A1c: 7.4 - LDL: 40 mg/dL - Liver function: normal - Protein in urine: present ASSESSMENT AND PLAN 1. Type 2 diabetes mellitus with stage 3a chronic kidney disease, without long- term current use of insulin (HCC) (E11.22) - Hemoglobin A1c is 7.4% as of December. - Blood glucose levels are stable without hypoglycemic episodes. - Patient is monitoring dietary intake, reducing carbohydrates and sugars. - Advised tighter glycemic control to potentially reduce proteinuria. - Will re-evaluate HbA1c in 6 months; consider metformin if levels remain elevated. - Continue current antihypertensive regimen: lisinopril increased to BID, amlodipine 2.5 mg daily. - Scheduled urine test to monitor proteinuria. - Follow-up with nephrology. 2. Cirrhosis of liver without ascites, unspecified hepatic cirrhosis type (HCC) (K74.60) - Liver function tests are stable. - Patient is taking liver support supplements. - Continue current management; follow-up with hepatology as needed. 3. Screening for colon cancer (Z12.11) - Colonoscopy scheduled for July or August. 4. Prostate cancer screening (Z12.5) - No current issues reported. - Will continue routine screening as per guidelines. 5. Mixed hyperlipidemia (E78.2) - LDL cholesterol is 40 mg/dL. - Continue atorvastatin (Lipitor) as prescribed. - Re-evaluate lipid panel in 6 months. Patient Instructions - Continue taking lisinopril twice daily as prescribed. - Take 2.5 mg of amlodipine daily (half of your 5 mg tablet). - Keep taking Lipitor as you ve been doing. - If replacing the battery in your glucose meter doesn t restore function, let us know so we can provide a new meter. - Complete the urine test tomorrow using the kidney doctor s prescription. - Maintain your current diet changes: cut back on red meat and sugar, focus on beans, corn, tortillas, poultry, and drink plenty of water. - Track your blood sugars regularly and report any low readings or concerns. - Schedule and complete lab work in about six months (including A1c, kidney function, and lipids); we will enter the orders for you. - Proceed with your colonoscopy in as planned. Orders Placed During This Visit Office Visit on 02/05/25 IMMUNOCHEMICAL FECAL OCCULT BLOOD TEST *Canceled* HEMOGLOBIN A1C COMPLETE BLOOD COUNT COMPREHENSIVE METABOLIC PANEL ALBUMIN/CREATININE RATIO, URINE PSA/PROSTATE SPECIFIC ANTIGEN SCREENING LIPID PANEL, NONFASTING amLODIPine (NORVASC) 5 mg tablet REVIEW OF SYSTEMS Constitutional: (+) weight loss Cardiovascular: (+) lower extremity edema Endocrine: (-) hypoglycemic episodes PHYSICAL EXAM BP 136/70 Pulse 63 Temp 36.6 C (97.8 F) Resp 16 Ht 176.5 cm (5' 9.5) Wt 102.3 kg (225 lb8.5 oz) SpO2 98% BMI 32.83 kg/m General: Well developed, well nourished, in no acute distress. Head: Normocephalic, atraumatic. Neck: Supple. Eyes: Normal conjunctiva, no scleral icterus. Lungs: Clear to auscultation bilaterally, no rubs, no wheezing. Cardiac: Regular rate and rhythm. No murmurs, gallops, or rubs. Extremities: No edema. Allergies: ALLERGIES Allergen Reactions Sulfa (Sulfonamide * Unknown Medications: amLODIPine (NORVASC) 5 mg tablet Take 1 tablet by mouth once daily. atorvastatin (LIPITOR) 80 mg tablet Take 1 tablet by mouth once daily. BEFORE BEDTIME lisinopril (ZESTRIL) 10 mg tablet Take 1 tablet by mouth two times a day. blood sugar diagnostic (ONETOUCH VERIO TEST STRIPS) test strip Testing twice daily. Non-insulin dependent diabetes E 11.22 lancets (ONE TOUCH DELICA) 33 gauge Use 1 Each in each nostril two times a day. sildenafil (VIAGRA) 25 mg tablet Take 1 tablet by mouth as needed. multivitamin tablet Take 1 tablet by mouth once daily. amLODIPine (NORVASC) 10 mg tablet Take 2.5 mg by mouth once daily. VITAMIN B COMPLEX-100 ORAL Take 1 tablet by mouth once daily. Ascorbic Acid 500 mg cpER Take 1 capsule by mouth once daily. cholecalciferol, vitamin D3, (VITAMIN D3 ORAL) Take 1,000 Units by mouth once daily. HISTORIES FAMILY HISTORY Problem Relation Age of Onset Diabetes Father Heart Father PAST MEDICAL HISTORY Diagnosis Date Abnormal liver enzymes Abnormal renal function Adult body mass index 30+ Benign hypertension Diastasis recti Essential hypertension Heavy tobacco smoker Impotence Kidney disease Light tobacco smoker Pigmented skin lesion Smokes tobacco daily PAST SURGICAL HISTORY Procedure Laterality Date EGD BANDING 10/22/2018 HEMORRHOIDECTOMY 1982 REMOVAL GALLBLADDER 04/14/2022 UNLISTED PROCEDURE DENTOALVEOLAR STRUCTURES 2007 complete full mouth teeth extraction Social History Tobacco Use Smoking status: Former Current packs/day: 0.00 Types: Cigarettes Quit date: 09/21/2019 Years since quittin.3 Smokeless tobacco: Former Tobacco comments: in the process of quitting Substance Use Topics Alcohol use: No Drug use: No Comment: no reported history Arsenio Monique MD The patient consented to the use of [employer] software for draft documentation of the visit consistent with [facility] s Notice of Privacy Practices. * Sandra Arreaga MA - 02/05/2025 9:07 AM EDT Abdominal Aortic Aneurysm Screening Never done Depression Screening Never done Anxiety Screening Never done BP Controlled (<130/80) due on 05/10/2023 Diabetic Foot Exam due on 11/17/2023 Colorectal Cancer Screening due on 01/13/2024 Dilated Retinal Exam due on 07/05/2024 Advance Directive Discussion Never done Covid-19 Vaccine() due on 12/06/2024 documented in this encounterK[facility]06-[facility]-2025 NoteHNO ID: [id number] Author: SANDRA ARREAGA MA Service: ? Author Type: Service Technician Copier Type: Progress Notes Filed: 02/05/2025 14:44 Note Text: Abdominal Aortic Aneurysm Screening Never done Depression Screening Never done Anxiety Screening Never done BP Controlled (<130/80) due on 05/10/2023 Diabetic Foot Exam due on 11/17/2023 Colorectal Cancer Screening due on 01/13/2024 Dilated Retinal Exam due on 07/05/2024 Advance Directive Discussion Never done Covid-19 Vaccine() due on 12/06/2024[facility] 02-05-2025 Instructions* Patient Instructions* Arsenio Monique MD - 02/05/2025 9:07 AM EDT - Continue taking lisinopril twice daily as prescribed. - Take 2.5 mg of amlodipine daily (half of your 5 mg tablet). - Keep taking Lipitor as you ve been doing. - If replacing the battery in your glucose meter doesn t restore function, let us know so we can provide a new meter. - Complete the urine test tomorrow using the kidney doctor s prescription. - Maintain your current diet changes: cut back on red meat and sugar, focus on beans, corn, tortillas, poultry, and drink plenty of water. - Track your blood sugars regularly and report any low readings or concerns. - Schedule and complete lab work in about six months (including A1c, kidney function, and lipids); we will enter the orders for you. - Proceed with your colonoscopy in as planned. [facility] OFFICE BUILDING LAB TEST INFORMATION [facility] OFFICE BUILDING LAB HOURS: Lab is open: 7:30am to 5:00pm M - , 7:30am to 4:00pm onFri and 8am -12pm on Sat. The lab is located in [facility] on the first floor. There is a registration window at the lab, available 7 am to 3 pm Saturday - Saturday. If registration is unavailable at the lab, you may register at the patient registration office near the front lobby of the hospital. SCHEDULING A LAB APPOINTMENT: Laboratory appointments are recommended.Walk ins are still accepted. Call [phone] or schedule via [employer] scheduling ticket. ROUTINE LAB ORDERS 60 days after they are entered. If your lab orders , you may be required to wait in the lab while they are reinstated FUTURE ORDERS are lab tests to be completed on the EXPECTED date. These orders 60 days afterthe expected date. STANDING ORDERS are recurring orders with an expiration date. The interval will indicate how often the test should be completed. CT / MRI / IVP If you have lab tests ordered for one of these radiology exams, please complete the blood work at least one day prior to the scheduled exam. PRESCRIPTION REFILL REQUESTS Request prescription refills through your [employer] account or contact your Pharmacy. My Chart Schedule My Appointment enables you to view your established primary care provider's open schedule and book an appointment online in real-time. This feature is available in internal medicine, family medicine, or pediatrics at any of our [facility] locations and main campus. 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 Improving sugars may improve this some increasing the lisinopril. I will leave the lisinopril increase ifthat isneeded to his solar crew member. For the BG does he think he can improve his diet? Arsenio Monique MD documented in this encounterK[facility]05-12-2025 Telephone encounter Note * Telephone Encounter - Arsenio Monique MD - 01/11/2025 1:15 PM EDT Please let patient know his A1c is up a little to 7.4 and the amount of protein in his urine. Improving sugars may improve this some increasing the lisinopril. I will leave the lisinopril increase ifthat isneeded to his solar crew member. For the BG does he think he can improve his diet? Arsenio Monique MD [facility]12-21-2024 Telephone encounter Note* Telephone Encounter - Sandra Arreaga MA - 08/22/2024 9:44 AM EST Faxed form to [employer] and mailed original to pt home and kept a copy for our records [facility]12-21-2024 Miscellaneous Notes* Telephone Encounter - Sandra Arreaga MA - 08/22/2024 9:44 AM EST Faxed form to [employer] and mailed original to pt home and kept a copy for our records * Telephone Encounter - Sandra Arreaga MA - 08/17/2024 9:51 AM EST I called pt and left detailed message We need a waist circumference to complete the form Placed on providers desk for review * Telephone Encounter - Lora Pugh - 08/14/2024 9:29 AM EST Patient stopped in on his way to the Lab. Dropped off paperwork for employer/insurance. Patient is asking when paperwork is completed and sent in that a copy be mailed to his home addressto retain for his records. Form has been placed in Mail Box, Dr. Monique * Telephone Encounter - Arsenio Monique MD - 08/13/2024 12:55 PM EST Labs ordered Arsenio Monique MD * Telephone Encounter - Camelia Stephens - 08/12/2024 8:30 AM EST Aniyah is calling Arsenio Monique MD today to request Lab Orders (for the employer) Patient has forms and will drop off when they come for their labs. Lab orders: Triglycerides MG Glucose HDL Total cholesterol LDL Also needs diastolic BP Please call when orders are placed Patient has been identified by name and birthdate. Duration of symptoms: N/A Person calling: self Call patient at: at home [phone] (home) [phone] (cell) Was an appointment scheduled: No Closing statement: Camelia Ramos Og Pss [phone] documented in this encounterK[facility]12-16-2024 Telephone encounter Note * Telephone Encounter - Sandra Arreaga MA - 08/17/2024 9:51 AM EST I called pt and left detailed message We need a waist circumference to complete the form Placed on providers desk for review [facility]12-13-2024 Telephone encounter Note* Telephone Encounter - Lora Pugh - 08/14/2024 9:29 AM EST Patient stopped in on his way to the Lab. Dropped off paperwork for employer/insurance. Patient is asking when paperwork is completed and sent in that a copy be mailed to his home addressto retain for his records. Form has been placed in Mail Box, Dr. Monique [facility]12-12-2024 Telephone encounter Note* Telephone Encounter - Arsenio Monique MD - 08/13/2024 12:55 PM EST Labs ordered Arsenio Monique MD [facility]12-11-2024 Telephone encounter Note* Telephone Encounter - Camelia Stephens - 08/12/2024 8:30 AM EST Aniyah is calling Arsenio Monique MD today to request Lab Orders (for the employer) Patient has forms and will drop off when they come for their labs. Lab orders: Triglycerides MG Glucose HDL Total cholesterol LDL Also needs diastolic BP Please call when orders are placed Patient has been identified by name and birthdate. Duration of symptoms: N/A Person calling: self Call patient at: at home [phone] (home) [phone] (cell) Was an appointment scheduled: No Closing statement: Camelia Anaya [phone] [facility] Work Phone: 1(727) 528-513811-29-2024 NoteHNO ID: [id number] Author: ARSENIO MONIQUE MD Service: ? Author Type: Physician Type: Progress Notes Filed: 07/31/2024 11:26 Note Text: ESTABLISHED PATIENT Henrique Levin is a 64 year old male presenting for Follow Up. 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 Type 2 Diabetes Follow up: Fasting blood sugars: 126 Low blood sugars: no Medication compliance: yes Diet: no change Exercise: no change Increased urination, hunger, thirst, weight changes: no HGBA1C 7.2 06/13/2024 HGBA1C 6.8 09/21/2023 HGBA1C 7.2 05/25/2023 Creatinine Urine 66.8 10/10/2019 Microalbumin, Random 44.80 10/10/2019 MA/Creat Ratio 670.66 10/10/2019 AYDIN Follow up: Uses nightly: Yes Improves symptoms: Yes Hypertension Follow up Medication Adherence: no missed doses and took medications this morning Home monitorins Heart palpitations: no Chest pain: no Last 3 Encounter BP Readings: Date: BP: 07/31/2024 138/70 06/07/2023 142/84 11/16/2022 138/70 Hx of cirrhosis. LFT normal. History of Thrombocytopenia: Concerning bleeding issues: No. Hx of cirrhosis. Platelet Count Date Value Ref Range Status 02/14/2024 137 (L) 150 - 400 k/uL Final 09/21/2023 132 (L) 150 - 400 k/uL Final 05/25/2023 128 (L) 150 - 400 k/uL Final Comment: No clot detected. 03/30/2023 132 (L) 150 - 400 k/uL Final 11/10/2022 125 (L) 150 - 400 k/uL Final 05/19/2022 112 (L) 150 - 400 k/uL Final 05/10/2022 109 (L) 150 - 400 k/uL Final Comment: No clot detected 04/15/2022 122 (L) 150 - 400 k/uL Final ASSESSMENT: (E11.9) Type 2 diabetes mellitus without complication, without long-term current use of insulin (HCC) (primary encounter diagnosis) (E78.5) Hyperlipidemia, unspecified hyperlipidemia type (K74.60) Cirrhosis of liver without ascites, unspecified hepatic cirrhosis type (HCC) (D69.6) Thrombocytopenia (HCC) (E11.22, N18.31) Type 2 diabetes mellitus with stage 3a chronic kidney disease, without long-term current use of insulin (HCC) (Z12.5) Prostate cancer screening (Z12.11) Screening for colon cancer (Z86.0100) History of colonic polyps PLAN: A1c near goal. Work on diet. Labs ordered for 6 monts Lipids at goal. COntinue statin LFT normal. No signs of decompensation Platelets low but stable. No bleeding issues Seeing nephrology. CKD stable PSA ordred C-scope ordered REVIEW OF SYSTEMS GENERAL: No weight loss, malaise or fevers. RESPIRATORY: Negative for cough, hemoptysis, wheezing or shortness of breath. CARDIOVASCULAR: Negative for chest pain, leg swelling or palpitations. All other systems reviewed and negative other than HPI. PHYSICAL EXAM BP 159/91 Pulse 61 Temp 36.4 ?C (97.5 ?F) Resp 16 Ht 176.5 cm (5' 9.5) Wt 104.1 kg (229 lb 8 oz) SpO2 98% BMI 33.41 kg/m? General: Well developed, well nourished, in no acute distress. Head: Normocephalic, atraumatic. Neck: Supple. Eyes: Normal conjunctiva, no scleral icterus. Lungs: Clear to auscultation bilaterally, no rubs, no wheezing. Cardiac: Regular rate and rhythm. No murmurs, gallops, or rubs. Extremities: No edema. Allergies: ALLERGIES Allergen Reactions Sulfa (Sulfonamide * Unknown Medications: atorvastatin (LIPITOR) 80 mg tablet Take 1 tablet by mouth once daily. BEFORE BEDTIME lisinopril (ZESTRIL) 10 mg tablet Take 1 tablet by mouth two times a day. blood sugar diagnostic (Power.com[employer]CH VERIO TEST STRIPS) test strip Testing twice daily. Non-insulin dependent diabetes E 11.22 lancets ([employer]) 33 gauge Use 1 Each in each nostril two times a day. sildenafil (VIAGRA) 25 mg tablet Take 1 tablet by mouth as needed. multivitamin tablet Take 1 tablet by mouth once daily. amLODIPine (NORVASC) 10 mg tablet Take 2.5 mg by mouth once daily. VITAMIN B COMPLEX-100 ORAL Take 1 tablet by mouth once daily. Ascorbic Acid 500 mg cpER Take 1 capsule by mouth once daily. cholecalciferol, vitamin D3, (VITAMIN D3 ORAL) Take 1,000 Units by mouth once daily. HISTORIES FAMILY HISTORY Problem Relation Age of Onset Diabetes Father Heart Father PAST MEDICAL HISTORY Diagnosis Date Abnormal liver enzymes Abnormal renal function Adult body mass index 30+ Benign hypertension Diastasis recti Essential hypertension Heavy tobacco smoker Impotence Kidney disease Light tobacco smoker Pigmented skin lesion Smokes tobacco daily PAST SURGICAL HISTORY Procedure Laterality Date EGD BANDING 10/22/2018 HEMORRHOIDECTOMY 1982 REMOVAL GALLBLADDER 04/14/2022 UNLISTED PROCEDURE DENTOALVEOLAR STRUCTURES 2007 complete full mouth teeth extraction Social History Tobacco Use Smoking status: Former Current packs/day: 0.00 Types: Cigarettes Quit date: 09/21/2019 Years since quittin.8 Smokeless tobacco: Former Tobacco comments: in the process of quitting Substance Use Topics Alcohol use: No Drug use: No Comment: no reported history Arsenio (more content not included)...[facility]11-29-2024 History of Present illness Narrative* Arsenio Monique MD - 07/31/2024 9:22 AM EST ESTABLISHED PATIENT Henrique Levin is a 64 year old male presenting for Follow Up. 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 Type 2 Diabetes Follow up: Fasting blood sugars: 126 Low blood sugars: no Medication compliance: yes Diet: no change Exercise: no change Increased urination, hunger, thirst, weight changes: no HGBA1C 7.2 06/13/2024 HGBA1C 6.8 09/21/2023 HGBA1C 7.2 05/25/2023 Creatinine Urine 66.8 10/10/2019 Microalbumin, Random 44.80 10/10/2019 MA/Creat Ratio 670.66 10/10/2019 AYDIN Follow up: Uses nightly: Yes Improves symptoms: Yes Hypertension Follow up Medication Adherence: no missed doses and took medications this morning Home monitorins Heart palpitations: no Chest pain: no Last 3 Encounter BP Readings: Date: BP: 07/31/2024 138/70 06/07/2023 142/84 11/16/2022 138/70 Hx of cirrhosis. LFT normal. History of Thrombocytopenia: Concerning bleeding issues: No. Hx of cirrhosis. Platelet Count Date Value Ref Range Status 02/14/2024 137 (L) 150 - 400 k/uL Final 09/21/2023 132 (L) 150 - 400 k/uL Final 05/25/2023 128 (L) 150 - 400 k/uL Final Comment: No clot detected. 03/30/2023 132 (L) 150 - 400 k/uL Final 11/10/2022 125 (L) 150 - 400 k/uL Final 05/19/2022 112 (L) 150 - 400 k/uL Final 05/10/2022 109 (L) 150 - 400 k/uL Final Comment: No clot detected 04/15/2022 122 (L) 150 - 400 k/uL Final ASSESSMENT: (E11.9) Type 2 diabetes mellitus without complication, without long-term current use of insulin (HCC) (primary encounter diagnosis) (E78.5) Hyperlipidemia, unspecified hyperlipidemia type (K74.60) Cirrhosis of liver without ascites, unspecified hepatic cirrhosis type (HCC) (D69.6) Thrombocytopenia (HCC) (E11.22, N18.31) Type 2 diabetes mellitus with stage 3a chronic kidney disease, without long-term current use of insulin (HCC) (Z12.5) Prostate cancer screening (Z12.11) Screening for colon cancer (Z86.0100) History of colonic polyps PLAN: A1c near goal. Work on diet. Labs ordered for 6 monts Lipids at goal. COntinue statin LFT normal. No signs of decompensation Platelets low but stable. No bleeding issues Seeing nephrology. CKD stable PSA ordred C-scope ordered REVIEW OF SYSTEMS GENERAL: No weight loss, malaise or fevers. RESPIRATORY: Negative for cough, hemoptysis, wheezing or shortness of breath. CARDIOVASCULAR: Negative for chest pain, leg swelling or palpitations. All other systems reviewed and negative other than HPI. PHYSICAL EXAM BP 159/91 Pulse 61 Temp 36.4 C (97.5 F) Resp 16 Ht 176.5 cm (5' 9.5) Wt 104.1 kg (229 lb8 oz) SpO2 98% BMI 33.41 kg/m General: Well developed, well nourished, in no acute distress. Head: Normocephalic, atraumatic. Neck: Supple. Eyes: Normal conjunctiva, no scleral icterus. Lungs: Clear to auscultation bilaterally, no rubs, no wheezing. Cardiac: Regular rate and rhythm. No murmurs, gallops, or rubs. Extremities: No edema. Allergies: ALLERGIES Allergen Reactions Sulfa (Sulfonamide * Unknown Medications: atorvastatin (LIPITOR) 80 mg tablet Take 1 tablet by mouth once daily. BEFORE BEDTIME lisinopril (ZESTRIL) 10 mg tablet Take 1 tablet by mouth two times a day. blood sugar diagnostic ([employer] VERIO TEST STRIPS) test strip Testing twice daily. Non-insulin dependent diabetes E 11.22 lancets (ONE TOUCH DELICA) 33 gauge Use 1 Each in each nostril two times a day. sildenafil (VIAGRA) 25 mg tablet Take 1 tablet by mouth as needed. multivitamin tablet Take 1 tablet by mouth once daily. amLODIPine (NORVASC) 10 mg tablet Take 2.5 mg by mouth once daily. VITAMIN B COMPLEX-100 ORAL Take 1 tablet by mouth once daily. Ascorbic Acid 500 mg cpER Take 1 capsule by mouth once daily. cholecalciferol, vitamin D3, (VITAMIN D3 ORAL) Take 1,000 Units by mouth once daily. HISTORIES FAMILY HISTORY Problem Relation Age of Onset Diabetes Father Heart Father PAST MEDICAL HISTORY Diagnosis Date Abnormal liver enzymes Abnormal renal function Adult body mass index 30+ Benign hypertension Diastasis recti Essential hypertension Heavy tobacco smoker Impotence Kidney disease Light tobacco smoker Pigmented skin lesion Smokes tobacco daily PAST SURGICAL HISTORY Procedure Laterality Date EGD BANDING 10/22/2018 HEMORRHOIDECTOMY 1982 REMOVAL GALLBLADDER 04/14/2022 UNLISTED PROCEDURE DENTOALVEOLAR STRUCTURES 2007 complete full mouth teeth extraction Social History Tobacco Use Smoking status: Former Current packs/day: 0.00 Types: Cigarettes Quit date: 09/21/2019 Years since quittin.8 Smokeless tobacco: Former Tobacco comments: in the process of quitting Substance Use Topics Alcohol use: No Drug use: No Comment: no reported history Arsenio Monique MD * Sandra Arreaga MA - 07/31/2024 8:48 AM EST Abdominal Aortic Aneurysm Screening Never done Depression Screening Never done Anxiety Screening Never done BP Controlled (<130/80) due on 05/10/2023 Advance Directive Discussion Never done Diabetic Foot Exam due on 11/17/2023 Colorectal Cancer Screening due on 01/13/2024 Annual PCP Team Chronic Disease Visit due on 06/07/2024 Dilated Retinal Exam due on 07/05/2024 documented in this [facility]-2024 NoteHNO ID: [id number] Author: SANDRA ARREAGA MA Service: ? Author Type: Service Technician Copier Type: Progress Notes Filed: 07/31/2024 11:26 Note Text: Abdominal Aortic Aneurysm Screening Never done Depression Screening Never done Anxiety Screening Never done BP Controlled (<130/80) due on 05/10/2023 Advance Directive Discussion Never done Diabetic Foot Exam due on 11/17/2023 Colorectal Cancer Screening due on 01/13/2024 Annual PCP Team Chronic Disease Visit due on 06/07/2024 Dilated Retinal Exam due on 07/05/2024[facility]11-29-2024 Instructions* Patient Instructions* Arsenio Monique MD - 07/31/2024 8:48 AM EST [facility] BU[facility] LAB TEST INFORMATION [facility] LAB HOURS: Lab is open: 7:30am to 5:00pm M - Th, 7:30am to 4:00pm onFri and 8am -12pm on Sat. The lab is located in [facility] on the first floor. There is a registration window at the lab, available 7 am to 3 pm Saturday - Saturday. If registration is unavailable at the lab, you may register at the patient registration office near the front lobby of the hospital. SCHEDULING A LAB APPOINTMENT: Laboratory appointments are recommended.Walk ins are still accepted. Call [phone] or schedule via [employer] scheduling ticket. ROUTINE LAB ORDERS 60 days after they are entered. If your lab orders , you may be required to wait in the lab while they are reinstated FUTURE ORDERS are lab tests to be completed on the EXPECTED date. These orders 60 days afterthe expected date. STANDING ORDERS are recurring orders with an expiration date. The interval will indicate how often the test should be completed. CT / MRI / IVP If you have lab tests ordered for one of these radiology exams, please complete the blood work at least one day prior to the scheduled exam. PRESCRIPTION REFILL REQUESTS Request prescription refills through your [employer] account or contact your Pharmacy. My Chart Schedule My Appointment enables you to view your established primary care provider's open schedule and book an appointment online in real-time. This feature is available in internal medicine, family medicine, or pediatrics at any of our [facility] locations and main campus. COLONOSCOPY BOWEL PREPARATION INSTRUCTIONS [employer] Your doctor has scheduled you for a colonoscopy. To have a successful colonoscopy, you must have a clean colon, that is empty. A clean colon allows your doctor to see the entire colon & diagnose issues like polyps or cancer. For doctors, a clean colon is like driving on a mary day; a dirty colon like driving in a storm. It is very important that you follow these instructions exactly, or your colonoscopy may not be as effective, could be canceled, and you may need to do the bowel prep and colonoscopy again. TRANSPORTATION REQUIREMENTS You are receiving IV sedation. For your safety, a responsible adult escort must accompany you to and from your procedure: Your adult escort MUST be present with you at check-in for your colonoscopy. Your adult escort MUST remain in the endoscopy area until you are discharged. Your adult escort MUST transport you home once you are discharged. You are NOT allowed to operate any form of transportation (i.e. drive a car, bicycle, etc) or leavethe Endoscopy Center ALONE. It is not safe to do so. If you cannot meet these requirements, your procedure will be canceled. MEDICATION REQUIREMENTS For your safety, certain medications will need to be stopped or adjusted before you can have your procedure: BLOOD THINNERS: If you take blood thinners, such as Coumadin (warfarin), Plavix (clopidogrel), Ticlid (ticlopidine hydrochloride), Agrylin (anagrelide), Xarelto (Rivaroxaban), Pradaxa (Dabigatran), Eliquis (Apixaban), or Effient (Prasugrel), contact the physician who is prescribing these medications at least 2 weeks prior to your procedure to discuss any necessary adjustments. DIABETES: If you take medications for diabetes, your dosage may need to be adjusted. If you are being treated for diabetes with insulin, diabetic pills, or other injectable medicationsdo not take your REGULAR dose after midnight on the day of your procedure. If you are taking any other types of insulin such as Lantus, Humalog, NPH (long- acting insulin), or70/30 insulin, take half your normal dose the day before your procedure. DIABETES/WEIGHT MANAGEMENT: If you take medications for weight-loss, your dosage may need to be adjusted Contact the doctor who prescribes this medication for further instructions. If you take medications for weight-loss like semaglutide (Ozempic, Wegovy, Rybelsus), dulaglutide (Trulicity), liraglutide (Victoza, Saxenda), exenatide (Byetta, Bydureon), or lixisenatide (Adylyxin), stop your medication 1 week prior to your procedure. If you take medications like canagliflozin (Invokana), dapagliflozin (Farxiga, Forxiga), empagliflozin (Jardiance), stop your medication 3 days prior to your procedure. If you take ertugliflozin (Steglatro) stop your medication 4 days prior to your procedure. IRON: If you take iron pills, STOP them 1 week BEFORE your procedure, may resume after. OTHER MEDS: May take all other medications (including aspirin, antibiotics, water pills / diureticslike Lasix or Metolozone, blood pressure meds, etc.) at their usual scheduled time with water. DIET REQUIREMENTS The day before your colonoscopy, you may have a clear liquid diet (see below). The day of your colonoscopy, you may continue a clear liquid diet until 3 hours before your colonoscopy. Within 3 hours of your colonoscopy, take only any medications (as above) with a sip of water. Clear Liquid Diet Broth (chicken, beef or vegetable broth or bullion. Just the broth, no solids). Water Coffee or Tea (NO milk or creamer), but sugar and sugar substitutes are allowed. Clear liquids including clear, yellow, green, blue (NO red, NO orange, NO purple) Sodas / soft drinks; Gatorade or other sports drinks Fruit juice (strained; no-pulp); Gopi-Aid or flavored drinks Plain Jell-O or other gelatins Popsicles or hard candy Bowel prep can work differently from person to person. Some people's bowels move slowly and they may need different instructions. Please see your doctor in office or virtually for personalized bowel prep instructions if you have: BOWEL PREPARATION (MIRALAX/GATORADE) Split Dosing Bowel Prep: This means drinking your bowel prep in two doses. Split dosing helps cleanyour colon better and makes it less likely that your procedure will be canceled. You will need to purchase the following (no prescriptions are needed): 64 ounces Gatorade, Propel, Crystal Lite or other noncarbonated clear liquid sports drink (NOT red,orange, or purple). Diabetic patients buy sugar-free, e.g. Gatorade G2 4 Dulcolax laxative tablets containing 5mg bisacodyl each (do not buy the stool softener) 8.3 oz MiraLAX (238g) powder or generic polyethylene glycol 3350 (find in laxative aisle) The day before your colonoscopy mix 64 oz of the sports drink with 8.3 oz MiraLAX (238 g) in a pitcher. Stir or shake until MiraLAX completely dissolved. Chill if desired. On the evening before your colonoscopy: 5 PM take 4 Dulcolax laxative tablets with water by mouth. 6 PM drink the first half of the Gatorade/MiraLAX solution Drink one 8-ounce glass every 15 minutes. Six hours before your colonoscopy, drink the second half of the solution. Drink one 8-ounce glass every 15 minutes. You may continue a clear liquid diet until 3 hours before your colonoscopy. Bowel prep can work differently from person to person. Some people's bowels move slowly and they may need different instructions. Please see your doctor in office or virtually for personalized bowel prep instructions if you have: Medical condition that needs special accommodations Had a poor bowel prep results or failed bowel prep attempts in the past. Had difficulty with anesthesia during the procedure. FREQUENTLY ASKED QUESTIONS Q: What if I suffer from constipation? A: Recommend taking extra laxatives to resolve your constipation days prior to entering the bowel prep day. Q: What if have had prior poor preps results in past? A: Contact your physician as you will likely need additional bowel prep instructions. Q: What if I have motility issues like Parkinson's, MS (multiple sclerosis), wheelchair dependent, etc.? or on medications that slow colonic transit times (narcotics, gabapentin, anticholinergic medications etc.) A: Contact your physician as you will likely need extra time and additional laxatives to complete your bowel prep. Q: What if I cannot drink large volume of liquid? A: Start your prep 2-3 hours earlier to allow yourself more time to complete the entire prep. Q: What if I had bariatric surgery? Do I still have to complete the entire prep? A: Yes, gastric bypass surgery involves the stomach & small bowel. You may need to drink smaller amounts, slower (may need more time to complete your bowel prep). Gastric bypass does not alter the length of your colon so you will need to complete the entire bowel prep, it may just take longer time to complete it. Q: What if I am on dialysis? A: Please consult your solar crew member prior to scheduling to get instructions pertinent to you. In general, dialysis patients take the [employer] plcly bowel prep and have the procedure same day of their dialysis (colonoscopy in AM, dialysis in PM). Q: How do I know if something is considered as clear liquid diet? A: If you can pour it in a glass and you can see through it, it is considered clear liquid Q: Can I eat nuts, seeds, beans, popcorn, dried fruits, vegetables & fruits that have skin peel? A: No, you will need to not eat these items starting 3 days prior to procedure. Q: Can I take Uber/Lyft/taxi/bus home? A: An adult MUST be present with you at check-in for your colonoscopy and remain in the endoscopy area until you are discharged. You can take Uber home only if this adult escort is with you at check in, remain in the endoscopy area until you are discharged, and takes the Uber with you to home. Q: Can I sleep it off here and drive myself home? A: No, you must have an adult with you at time of procedure check in, remain in the endoscopy center during your procedure, and drive you home. You cannot drive a vehicle after your procedure the rest of the day. Q: What if I can't finish my bowel prep? A: If you cannot complete your entire bowel prep, there is high likelihood that your colonoscopy will need to be rescheduled due to inadequate prep quality. documented in this encounterK[facility]-2024 NotePatient Outreach (INTMMN) HENRIQUE LEVIN ([id number]) 1960 M Date Time Provider Department 07/14/24 ARSENIO MONIQUE INTCHRISTINEN During your visit today, we recorded the following information about you: Allergies As of Date: 07/14/2024 Noted Allergy Reaction SULFA (SULFONAMIDE ANTIBIOTICS) 04/20/2016 16 - Unknown Date Reviewed: 06/07/2023 Reviewed by: Camelia Calixto APRN.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 - Fully Assessed Visit Diagnosis:Hyperlipidemia [E78.5] Order(s):LIPID PANEL BASIC [SQLIPB] Order #: [id number] FUTURE Prescriptions as of 07/17/2024 - atorvastatin (LIPITOR) 80 mg tablet Take 1 tablet by mouth once daily. BEFORE BEDTIME - lisinopril (ZESTRIL) 10 mg tablet Take 1 tablet by mouth two times a day. - blood sugar diagnostic (ONETOUCH VERIO TEST STRIPS) test strip Testing twice daily. Non-insulin dependent diabetes E 11.22 - lancets (ONE TOUCH DELICA) 33 gauge Use 1 Each in each nostril two times a day. - sildenafil (VIAGRA) 25 mg tablet Take 1 tablet by mouth as needed. - multivitamin tablet Take 1 tablet by mouth once daily. - amLODIPine (NORVASC) 10 mg tablet Take 2.5 mg by mouth once daily. - VITAMIN B COMPLEX-100 ORAL Take 1 tablet by mouth once daily. - Ascorbic Acid 500 mg cpER Take 1 capsule by mouth once daily. - cholecalciferol, vitamin D3, (VITAMIN D3 ORAL) Take 1,000 Units by mouth once daily. Problem List As Of Date 07/14/2024 Noted Resolved Obesity, Class II, BMI 35-39.9 [E66.812] 03/06/2018 02/10/2019 Thrombocytopenia (HCC) [D69.6] 03/19/2018 Anemia [D64.9] 03/19/2018 Obesity, Class I, BMI 30-34.9 [E66.811] 05/16/2018 History of hepatitis C [Z86.19] 08/11/2018 Type 2 diabetes mellitus with stage 3a chronic *11/21/2018 Essential hypertension [I10] 11/21/2018 Hyperlipidemia [E78.5] 11/21/2018 Tobacco use disorder [F17.200] 11/21/2018 07/22/2020 Cholecystitis [K81.9] 04/14/2022 Cirrhosis of liver without ascites, unspecified*06/07/2023 Encounter Status:Closed by [employer] GojimoTIMOTHY on 07/17/24[facility] 06-17-2024 Telephone encounter Note* Telephone Encounter - Sandra Arreaga MA - 06/17/2024 4:23 PM EDT Pt advised and letter placed at front office supervisor [facility]-16-[facility]24 Miscellaneous Notes* Telephone Encounter - Sandra Arreaga MA - 06/17/2024 4:23 PM EDT Pt advised and letter placed at front office supervisor * Telephone Encounter - Arsenio Monique MD - 06/16/2024 1:34 PM EDT Letter in outbox on 06/17. * Telephone Encounter - Ros Yañez RN - 06/16/2024 10:27 AM EDT Discussed with patient-he declines meds. Feels he can work on diet. 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 Ros Yañez RN * Telephone Encounter - Arsenio Monique MD - 06/15/2024 9:39 PM EDT Patient A1c is in. It is up a little to 7.2. If he thinks he can eat better then no needs for meds.Otherwise I would suggest starting 1 metformin per day. His psa is stable ThanksArsenio MD documented in this encounterK[facility]10-15-2024 Telephone encounter Note * Telephone Encounter - Arsenio Monique MD - 06/16/2024 1:34 PM EDT Letter in outbox on 06/17. [facility] Telephone encounter Note* Telephone Encounter - Ros Yañez RN - 06/16/2024 10:27 AM EDT Discussed with patient-he declines meds. Feels he can work on diet. 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 Ros Yañez RN [facility]10-14-2024 Telephone encounter Note* Telephone Encounter - Arsenio Monique MD - 06/15/2024 9:39 PM EDT Patient A1c is in. It is up a little to 7.2. If he thinks he can eat better then no needs for meds.Otherwise I would suggest starting 1 metformin per day. His psa is stable ThanksArsenio MD [facility]11-11-2023 Miscellaneous Notes* Telephone Encounter - Nancy Reese - 07/13/2023 9:29 AM EST Pharmacy verified in [facility] Patient has been identified by name and date of : Yes Patient aware RX will be sent to pharmacy. No need to notify patient. Patient phones for refill(s): Requested Prescriptions Pending Prescriptions Disp Refills atorvastatin (LIPITOR) 80 mg tablet 90 tablet 4 Sig: Take 1 tablet by mouth once daily. BEFORE BEDTIME lisinopril (ZESTRIL) 10 mg tablet Sig: Take 1 tablet by mouth two times a day. Date of last office visit : 05/17/2021 Date of next office visit : Visit date not found Last 2 Encounter Wt Readings: Date: Wt: 06/07/2023 105.2 kg (231 lb 14.4 oz) 11/16/2022 106.1 kg (234 lb) Not applicable Please advise. Nancy Reese documented in this encounterK[facility]11-06-2023 Miscellaneous Notes* Telephone Encounter - Sandra Arreaga - 07/08/2023 3:27 PM EST Received diabetic eye exam from [facility]. Placed in provider's inbox for review. Sent to scanning documented in this encounterK[facility]10-10-2023 Miscellaneous Notes* Telephone Encounter - Arleth Choi - 06/11/2023 2:02 PM EDT Patient notified * Telephone Encounter - Camelia Calixto APRN.PARRISH - 06/11/2023 11:54 AM EDT Please let patient know PSA is normal. Thanks, Camelia Calixto APRN.CNP documented in this encounterK[facility]10-06-2023 History of Present illness Narrative* Aminah Echeverria TECHNOLOGIST - 06/07/2023 11:00 AM EDT Radiology Service Progress Note PATIENT NAME: Henrique Levin DATE OF SERVICE: June 07, 2023 TIME: 11:13 AM PATIENT IDENTITY VERIFICATION COMPLETED USING TWO (2) IDENTIFIERS: Name and Date of confirmedby patient verbally. FALL SCREENING: Has the patient had 2 falls in the last year or 1 fall with injury or currently using an Ambulatory Assistive Device (Walker, Cane, Wheelchair, Crutches, etc.)? No PATIENT GENDER DATA: Male PATIENT RELEVANT IMPLANT DATA REVIEWED: Yes RADIOLOGY DEPARTMENT: Ultrasound PERIPHERAL IV DATA: Not applicable SIGNED BY: MELISSA MorenoOLOGIST June 07, 2023 11:13 AM documented in this encounterK[facility]10-06-2023 History of Present illness Narrative* Camelia Calixto APRN.CNP - 06/07/2023 8:10 AM EDT ESTABLISHED PATIENT Henrique Levin is a 63 year old male presenting for Follow Up. HISTORY OF PRESENT ILLNESS Hypertension Follow up Medication Adherence: no missed doses and took medications this morning Home monitorin/60s Heart palpitations: no Chest pain: no Last 3 Encounter BP Readings: Date: BP: 06/07/2023 142/84 11/16/2022 138/70 05/10/2022 128/76 Type 2 Diabetes Follow up: Fasting blood sugars: <150 Low blood sugars: None Medication compliance: no meds Diet: not always great Exercise: None Increased urination, hunger, thirst, weight changes: no HGBA1C 7.2 05/25/2023 HGBA1C 7.6 11/10/2022 HGBA1C 7.3 05/10/2022 Creatinine Urine 66.8 10/10/2019 Microalbumin, Random 44.80 10/10/2019 MA/Creat Ratio 670.66 10/10/2019 Hyperlipidemia Follow up Taking daily: Yes Trying to eat a diet low in saturated fat and cholesterol: Yes LDL Cholesterol 29 05/25/2023 LDL Cholesterol 43 11/24/2022 LDL Cholesterol 34 05/10/2022 HDL 38 05/25/2023 HDL 41 11/24/2022 HDL 42 05/10/2022 TRIGLYCERIDE 147 05/25/2023 TRIGLYCERIDE 130 11/24/2022 TRIGLYCERIDE 138 05/10/2022 CHOL 96 05/25/2023 CHOL 110 11/24/2022 CHOL 104 05/10/2022 AST 23 05/25/2023 ALT 30 05/25/2023 Hx of liver cirrhosis, PCP ordered RUQ ultrasound, patient needs to schedule Patient sees nephrology for CKD, Dr. Alaniz outside [facility], kidney function decreased 2 weeks ago on labs, he drinks at least 8 bottles of water per day, does not take NSAIDs. Did not drink water priorto last labs. Last 10 Encounter Wt Readings: Date: Wt: 06/07/2023 105.2 kg (231 lb 14.4 oz) 11/16/2022 106.1 kg (234 lb) 05/10/2022 102.6 kg (226 lb 3.2 oz) 04/26/2022 101.6 kg (224 lb) 04/14/2022 105.1 kg (231 lb 11.3 oz) 11/20/2021 106.1 kg (234 lb) 05/17/2021 105 kg (231 lb 6.4 oz) 01/27/2021 103 kg (227 lb) 11/23/2020 103.2 kg (227 lb 8 oz) 10/25/2020 105.7 kg (233 lb) HISTORIES FAMILY HISTORY Problem Relation Age of Onset Diabetes Father Heart Father PAST MEDICAL HISTORY Diagnosis Date Abnormal liver enzymes Abnormal renal function Adult body mass index 30+ Benign hypertension Diastasis recti Essential hypertension Heavy tobacco smoker Impotence Kidney disease Light tobacco smoker Pigmented skin lesion Smokes tobacco daily PAST SURGICAL HISTORY Procedure Laterality Date EGD BANDING 10/22/2018 HEMORRHOIDECTOMY 1982 REMOVAL GALLBLADDER 04/14/2022 UNLISTED PROCEDURE DENTOALVEOLAR STRUCTURES 2007 complete full mouth teeth extraction Social History Tobacco Use Smoking status: Former Packs/day: .5 Types: Cigarettes Quit date: 09/21/2019 Years since quittin.7 Smokeless tobacco: Former Tobacco comments: in the process of quitting Substance Use Topics Alcohol use: No Drug use: No Comment: no reported history Allergies: ALLERGIES Allergen Reactions Sulfa (Sulfonamide * Unknown Medications: atorvastatin (LIPITOR) 80 mg tablet Take 1 tablet by mouth once daily. BEFORE BEDTIME atorvastatin (LIPITOR) 80 mg tablet TAKE 1 TABLET BY MOUTH ONCE DAILY before bedtime sildenafil (VIAGRA) 25 mg tablet Take 1 tablet by mouth as needed. multivitamin tablet Take 1 tablet by mouth once daily. amLODIPine (NORVASC) 10 mg tablet Take 2.5 mg by mouth once daily. blood sugar diagnostic ([employer] VERIO TEST STRIPS) test strip Testing twice daily. Non-insulin dependent diabetes E 11.22 lancets (ONE TOUCH DELICA) 33 gauge Use 1 Each in each nostril twice daily. lisinopril (ZESTRIL, PRINIVIL) 10 mg tablet Take 1 tablet by mouth twice daily. VITAMIN B COMPLEX-100 ORAL Take 1 tablet by mouth once daily. Ascorbic Acid 500 mg cpER Take 1 capsule by mouth once daily. cholecalciferol, vitamin D3, (VITAMIN D3 ORAL) Take 1,000 Units by mouth once daily. REVIEW OF SYSTEMS GENERAL: No weight loss, malaise or fevers RESPIRATORY: Negative for cough, hemoptysis, wheezing or shortness of breath CARDIOVASCULAR: Negative for chest pain, leg swelling or palpitations All other reviewed and negative other than HPI. PHYSICAL EXAM BP 142/84 Pulse 67 Ht 176.5 cm (5' 9.49) Wt 105.2 kg (231 lb 14.4 oz) SpO2 99% BMI 33.77kg/m General Appearance: Well appearing, alert, in no acute distress, well-hydrated, well nourished.. Lungs: Lungs clear to auscultation. No wheezing, rhonchi, rales.. Heart: RRR without murmur, gallop, or rubs. No ectopy. ASSESSMENT/PLAN (I10) Essential hypertension (primary encounter diagnosis) (E11.9) Type 2 diabetes mellitus without complication, without long-term current use of insulin (HCC) (Z86.19) History of hepatitis C (K74.60) Cirrhosis of liver without ascites, unspecified hepatic cirrhosis type (HCC) (E78.5) Hyperlipidemia, unspecified hyperlipidemia type (N18.32) Stage 3b chronic kidney disease (HCC) (E66.9) Obesity, Class I, BMI 30-34.9 (Z12.5) Prostate cancer screening - BP controlled - DM controlled off meds, patient will work on diet and exercise - Continue current medications - Check PSA level - Discussed diet and exercise - Schedule RUQ ultrasound - Patient will contact solar crew member regarding kidney function, he drinks plenty of water - Patient will get flu and covid vaccines at pharmacy - Follow up 6 months; prn for new or worsening symptoms Camelia Calixto APRN.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 * Dion Turk Ma - 06/07/2023 7:53 AM EDT Abdominal Aortic Aneurysm Screening Never done Advance Directive Discussion Never done Covid-19 Vaccine(5 - Moderna series) due on 2023 Influenza Vaccine(1) due on 05/03/2023 BP Controlled (<130/80) due on 05/10/2023 documented in this encounterK[facility]05-01-2023 Miscellaneous Notes* Telephone Encounter - Sandra Arreaga - 12/31/2022 4:31 PM EDT Last appointment: 11/14/22 Next appointment: n/a Pharmacy verified in [facility]. Refill(s) requested: Requested Prescriptions Pending Prescriptions Disp Refills atorvastatin (LIPITOR) 80 mg tablet [Pharmacy Med Name: atorvastatin 80 mg tablet] 90 tablet 4 Sig: TAKE 1 TABLET BY MOUTH ONCE DAILY before bedtime Order(s) pended. Please advise. Sandra Arreaga CMA documented in this encounterK[facility]05-01-2023 Miscellaneous Notes* Telephone Encounter - Caitlin Guzman - 12/31/2022 8:11 AM EDT Patient has been identified by name and date of : Yes Requested Prescriptions Pending Prescriptions Disp Refills atorvastatin (LIPITOR) 80 mg tablet 90 tablet 4 Sig: Take 1 tablet by mouth once daily. BEFORE BEDTIME RX INSTRUCTIONS: Patient aware RX will be sent to pharmacy. No need to notify patient. Caitlin Guzman documented in this encounterK[facility]03-29-2023 Miscellaneous Notes* Telephone Encounter - Sandra Arreaga - 11/28/2022 9:26 AM EDT Request completed and faxed [phone]. * Telephone Encounter - Arsenio Monique MD - 11/27/2022 6:12 PM EDT Forms complete in outbox Arsenio Monique MD * Telephone Encounter - Arleth Choi - 11/20/2022 1:16 PM EDT Spoke to patient's , she stated that he was not at home , will be back on Saturday , going to get it done when comes back. * Telephone Encounter - Arsenio Monique MD - 11/20/2022 9:15 AM EDT Please let patient know he needs a lipid panel before 11/30/22 so I can fill out his physical form for work. Arsenio Monique MD documented in this encounterK[facility]03-28-2023 Miscellaneous Notes* Telephone Encounter - Nakia Rizzo RN - 11/27/2022 7:28 PM EDT Let patient know that his cholesterol is well controlled, continue the lipitor. Chiqui Wilks APRN.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 Spoke with patient, message from provider given Reason for Disposition [1] Other NON-URGENT information for PCP AND [2] does not require PCP response Answer Assessment - Initial Assessment Questions 1. REASON FOR CALL or QUESTION: What is your reason for calling today? or How can I best help you? or What question do you have that I can help answer? Lab results Protocols used: PCP Call - No [id number] documented in this encounterKettering [facility]03-21-2023 Evaluation note* Diagnosis Type 2 diabetes mellitus with stage 3a chronic kidney disease, without long-term current use of insulin (HCC)- Primary documented in this encounter [facility]03-17-[facility]23 History of Present illness Narrative* Arsenio Monique MD - 11/16/2022 8:49 AM EDT ESTABLISHED PATIENT Henrique Levin is a 62 year old male presenting for Physical. HISTORY OF PRESENT ILLNESS Vaccinations: Yes Preventative Health: FOBT Safety Concerns: no Depression: None Eye Doctor/Exam: yes Dentist: has dentures Exercise: none Diet: see below Specialist: sees nephrology Type 2 Diabetes Follow up: Fasting blood sugars: About the same. 120 this orning. Low blood sugars: none Medication compliance: yes Diet: more sugar lately. Aware he needs to cut back Exercise: not as much. Increased urination, hunger, thirst, weight changes: no HGBA1C 7.6 11/10/2022 HGBA1C 7.3 05/10/2022 HGBA1C 6.5 11/20/2021 Creatinine Urine 66.8 10/10/2019 Microalbumin, Random 44.80 10/10/2019 MA/Creat Ratio 670.66 10/10/2019 Hypertension Follow up Medication Adherence: no missed doses and took medications this morning Home monitorins at home Heart palpitations: no Chest pain: no Last 3 Encounter BP Readings: Date: BP: 11/16/2022 138/70 05/10/2022 128/76 04/26/2022 164/95 Recent Labs: WBC 4.80 11/10/2022 HGB 11.7 11/10/2022 HCT 34.7 11/10/2022 Platelet 125 11/10/2022 Sodium 138 11/10/2022 Potassium 4.2 11/10/2022 Creatinine 1.49 11/10/2022 BUN 19 11/10/2022 eGFR 45.77 04/23/2020 eGFR-All Other Races 52 11/10/2022 Glucose 172 11/10/2022 Calcium 10.1 11/10/2022 HGBA1C 7.6 11/10/2022 LDL 34 05/10/2022 HDL 42 05/10/2022 CHOL 104 05/10/2022 TRIGLYCERIDE 138 05/10/2022 AST 24 11/10/2022 ALT 34 11/10/2022 Alkaline Phosphatase 89 11/10/2022 PSA Screening 0.75 11/19/2020 Estimated Creatinine Clearance: 60.6 mL/min (A) (based on SCr of 1.49 mg/dL (H)). ASSESSMENT: (Z00.00) Well adult exam (primary encounter diagnosis) (Z12.11) Screening for colon cancer (E11.22, N18.31) Type 2 diabetes mellitus with stage 3a chronic kidney disease, without long-term current use of insulin (HCC) (I10) Essential hypertension (E78.5) Hyperlipidemia, unspecified hyperlipidemia type (Z86.19) History of hepatitis C (D69.6) Thrombocytopenia (HCC) PLAN: Discussed preventative health care FOBT DM2 worse control. Encoruaged dietary change. If not better then will need to start meds BP controlled Lipids controlled Platelets stable HISTORIES FAMILY HISTORY Problem Relation Age of Onset Diabetes Father Heart Father PAST MEDICAL HISTORY Diagnosis Date Abnormal liver enzymes Abnormal renal function Adult body mass index 30+ Benign hypertension Diastasis recti Essential hypertension Heavy tobacco smoker Impotence Kidney disease Light tobacco smoker Pigmented skin lesion Smokes tobacco daily PAST SURGICAL HISTORY Procedure Laterality Date EGD BANDING 10/22/2018 HEMORRHOIDECTOMY 1982 REMOVAL GALLBLADDER 04/14/2022 UNLISTED PROCEDURE DENTOALVEOLAR STRUCTURES 2007 complete full mouth teeth extraction Social History Tobacco Use Smoking status: Former Packs/day: 0.50 Types: Cigarettes Quit date: 09/21/2019 Years since quittin.1 Smokeless tobacco: Former Tobacco comments: in the process of quitting Substance Use Topics Alcohol use: No Drug use: No Comment: no reported history Allergies: ALLERGIES Allergen Reactions Sulfa (Sulfonamide * Unknown Medications: sildenafil (VIAGRA) 25 mg tablet Take 1 tablet by mouth as needed. multivitamin tablet Take 1 tablet by mouth once daily. amLODIPine (NORVASC) 10 mg tablet Take 2.5 mg by mouth once daily. blood sugar diagnostic (ONETOUCH VERIO TEST STRIPS) test strip Testing twice daily. Non-insulin dependent diabetes E 11.22 lancets (ONE TOUCH DELICA) 33 gauge Use 1 Each in each nostril twice daily. atorvastatin (LIPITOR) 80 mg tablet Take 1 tablet by mouth once daily. BEFORE BEDTIME lisinopril (ZESTRIL, PRINIVIL) 10 mg tablet Take 1 tablet by mouth twice daily. VITAMIN B COMPLEX-100 ORAL Take 1 tablet by mouth once daily. Ascorbic Acid 500 mg cpER Take 1 capsule by mouth once daily. cholecalciferol, vitamin D3, (VITAMIN D3 ORAL) Take 1,000 Units by mouth once daily. REVIEW OF SYSTEMS GENERAL: No weight loss, malaise or fevers. RESPIRATORY: Negative for cough, hemoptysis, wheezing or shortness of breath. CARDIOVASCULAR: Negative for chest pain, leg swelling or palpitations. All other systems reviewed and negative other than HPI. PHYSICAL EXAM BP 138/70 Pulse 65 Temp 36.8 C (98.2 F) Resp 16 Ht 176.5 cm (5' 9.5) Wt 106.1 kg (234 lb) SpO2 97% BMI 34.06 kg/m General: Well developed, well nourished, in no acute distress. Head: Normocephalic, atraumatic. Neck: Supple. Eyes: Normal conjunctiva, no scleral icterus. Lungs: Clear to auscultation bilaterally, no rubs, no wheezing. Cardiac: Regular rate and rhythm. No murmurs, gallops, or rubs. Extremities: No edema. Foot Exam: normal pedal pulses, sensation to microfilament, and nails. Arsenio Monique MD * Sandra Arreaga - 11/16/2022 8:22 AM EDT INFLUENZA(1) due on 05/03/2022 DEPRESSION ASSESSMENT Never done DIABETIC FOOT EXAM due on 11/20/2022 COLORECTAL CANCER SCREENING due on 12/09/2022 documented in this encounterK[facility]03-17-2023 Instructions* Patient Instructions* Sandra Arreaga - 11/16/2022 8:22 AM EDT [facility] TEST INFORMATION [facility] HOURS: Lab is open: 7:30am to 5:00pm M - Th, 7:30am to 4:00pm onFri and 8am -12pm on Sat. The lab is located in [facility] on the first floor. There is a registration window at the lab, available 7 am to 3 pm Saturday - Saturday. If registration is unavailable at the lab, you may register at the patient registration office near the front lobby of the hospital. SCHEDULING A LAB APPOINTMENT: Laboratory appointments are recommended.Walk ins are still accepted. Call [phone] or schedule via World[employer] scheduling ticket. ROUTINE LAB ORDERS 60 days after they are entered. If your lab orders , you may be required to wait in the lab while they are reinstated FUTURE ORDERS are lab tests to be completed on the EXPECTED date. These orders 60 days afterthe expected date. STANDING ORDERS are recurring orders with an expiration date. The interval will indicate how often the test should be completed. CT / MRI / IVP If you have lab tests ordered for one of these radiology exams, please complete the blood work at least one day prior to the scheduled exam. PRESCRIPTION REFILL REQUESTS Request prescription refills through your World[employer] account or contact your Pharmacy. My Chart Schedule My Appointment enables you to view your established primary care provider's open schedule and book an appointment online in real-time. This feature is available in internal medicine, family medicine, or pediatrics at any of our [facility] locations and main campus. documented in this encounterK[facility]01-06-2023 Miscellaneous Notes* Telephone Encounter - Chiara Oakes MA - 09/07/2022 11:01 AM EST Received 08-29-22 from terese. Placed in provider's inbox for review. Route to MA scanning documented in this encounterK[facility]01-06-2023 Miscellaneous Notes* Telephone Encounter - Chiara Oakes MA - 09/07/2022 10:45 AM EST Received 09-07-22 from keaton. Placed in provider's inbox for review. Route to MA scanning documented in this encounterK[facility]12-23-2022 Miscellaneous Notes* Telephone Encounter - Camelia Calixto APRN.CNP - 08/24/2022 2:54 PM EST Reviewed. Placed in outbox for scanning. Camelia Calixto APRN.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 * Telephone Encounter - Chiara Oakes MA - 08/22/2022 5:42 PM EST Received 07-23-22 from [employer]isse . Placed in provider's inbox for review. Route to MA scanning documented in this encounterKet[facility]10-31-2022 Miscellaneous Notes* Telephone Encounter - Sandra Arreaga - 07/02/2022 3:19 PM EDT Faxed to [facility] and pt advised * Telephone Encounter - Colette Barker Pss - 07/02/2022 2:52 PM EDT Henrique Levin is calling Arsenio Monique MD today to request Patient Request (Patient is on the road now and unable to get the letter he needs can the [facility] ) Attn: James at [phone] [address] office. Please send KAVITA the letter dated 06/29/22 from Kayden Montgomery. Patient has been identified by name and birthdate. Duration of symptoms: N/A Person calling: self Call patient at: at home [phone] (home) [phone] (cell) Was an appointment scheduled: No Closing statement: Results or non-symptom based questions: Thank you for calling [facility], your call will be returned within the next business day. Colette Barker Pss documented in this encounterKet[facility]09-20-2022 Miscellaneous Notes* Telephone Encounter - Camelia Calixto APRN.CNP - 05/22/2022 12:28 PM EDT Noted. Camelia Calixto APRN.CNP * Telephone Encounter - Martha Watson RN - 05/22/2022 10:54 AM EDT Spoke to Henrique, message given as below. He states he is already seeing a blood doctor, Dr Moreno in [place]. He also asked again about his A1C, I reviewed the previous message from 05/13/2022 with him. He stated again that he would not like to go back on Metformin and will adjust his diet to lower his A1C. * Telephone Encounter - Camelia Calixto APRN.CNP - 05/22/2022 8:12 AM EDT Please let patient know potassium is normal. Platelets remain low, hematology was consulted a few years ago and it doesn't look like he ever scheduled. I placed a new consult order, please assist in scheduling. Thanks, Camelia Calixto APRN.CNP documented in this encounterKet[facility]09-12-2022 Miscellaneous Notes* Telephone Encounter - Ros Yañez RN - 05/14/2022 9:05 AM EDT Discussed message below with patient. He states he was drinking a lot of apple juice but now has stopped. States his BS are good at home 115-120's. Would prefer to work on A1C via diet and exercise as opposed to restarting metformin. Ros Yañez RN Reason for Disposition [1] Other NON-URGENT information for PCP AND [2] does not require PCP response Protocols used: PCP Call - No [id number] * Telephone Encounter - Camelia Calixto APRN.CNP - 05/13/2022 8:52 PM EDT Please let patient know A1C level is 7.3, higher than it has been over the past 2 years. We could consider starting him back on metformin to bring down his blood sugars. He took this in the past and stopped due to well controlled levels. Potential side effects include nausea and diarrhea but less common with the extended release form. It can also aid with weight loss. Let me know if he is interested in resuming medication and I can send to pharmacy. Thanks, Camelia Calixto APRN.CNP documented in this encounterKettering [facility]09-08-2022 History of Present illness Narrative* Camelia Calixto APRN.CNP - 05/10/2022 8:04 AM EDT ESTABLISHED PATIENT Henrique Levin is a 62 year old male presenting for Follow Up (6month/). HISTORY OF PRESENT ILLNESS Patient did not get labs prior to today's visit Hypertension Follow up Medication Adherence: no missed doses and took medications this morning Home monitorin/70s Heart palpitations: no Chest pain: no Last 3 Encounter BP Readings: Date: BP: 05/10/2022 128/76 04/26/2022 164/95 04/14/2022 153/65 Type 2 Diabetes Follow up: Fasting blood sugars: 100-130 Low blood sugars: no Medication compliance: Yes Diet: watches carbs and sugars Exercise: None Increased urination, hunger, thirst, weight changes: no HGBA1C 6.5 11/20/2021 HGBA1C 6.6 05/06/2021 HGBA1C 6.9 11/19/2020 Creatinine Urine 66.8 10/10/2019 Microalbumin, Random 44.80 10/10/2019 MA/Creat Ratio 670.66 10/10/2019 Eye exam scheduled in July Hyperlipidemia Follow up Taking daily: Yes Trying to eat a diet low in saturated fat and cholesterol: Yes LDL Cholesterol 34 08/31/2021 LDL Cholesterol 47 11/19/2020 LDL Cholesterol 46 01/11/2020 HDL 43 08/31/2021 HDL 38 11/19/2020 HDL 39 01/11/2020 TRIGLYCERIDE 243 08/31/2021 TRIGLYCERIDE 180 11/19/2020 TRIGLYCERIDE 148 01/11/2020 CHOL 126 08/31/2021 CHOL 121 11/19/2020 CHOL 115 01/11/2020 AST 153 04/15/2022 ALT 237 04/15/2022 HISTORIES FAMILY HISTORY Problem Relation Age of Onset Diabetes Father Heart Father PAST MEDICAL HISTORY Diagnosis Date Abnormal liver enzymes Abnormal renal function Adult body mass index 30+ Benign hypertension Diastasis recti Essential hypertension Heavy tobacco smoker Impotence Kidney disease Light tobacco smoker Pigmented skin lesion Smokes tobacco daily PAST SURGICAL HISTORY Procedure Laterality Date EGD BANDING 10/22/2018 HEMORRHOIDECTOMY 1982 REMOVAL GALLBLADDER 04/14/2022 UNLISTED PROCEDURE DENTOALVEOLAR STRUCTURES 2007 complete full mouth teeth extraction Social History Tobacco Use Smoking status: Former Packs/day: 0.50 Types: Cigarettes Quit date: 09/21/2019 Years since quittin.6 Smokeless tobacco: Former Tobacco comments: in the process of quitting Substance Use Topics Alcohol use: No Drug use: No Comment: no reported history Allergies: ALLERGIES Allergen Reactions Sulfa (Sulfonamide * Unknown Medications: amLODIPine (NORVASC) 10 mg tablet Take 2.5 mg by mouth once daily. blood sugar diagnostic (ONETOUCH VERIO TEST STRIPS) test strip Testing twice daily. Non-insulin dependent diabetes E 11.22 lancets (ONE TOUCH DELICA) 33 gauge Use 1 Each in each nostril twice daily. atorvastatin (LIPITOR) 80 mg tablet Take 1 tablet by mouth once daily. BEFORE BEDTIME lisinopril (ZESTRIL, PRINIVIL) 10 mg tablet Take 1 tablet by mouth twice daily. VITAMIN B COMPLEX-100 ORAL Take 1 tablet by mouth once daily. Ascorbic Acid 500 mg cpER Take 1 capsule by mouth once daily. cholecalciferol, vitamin D3, (VITAMIN D3 ORAL) Take 1,000 Units by mouth once daily. Lancing Device (LANCING DEVICE WITH LANCETS) misc 1 Each once daily. One touch delica ferrous sulfate 325 mg (65 mg iron) tablet Take 325 mg by mouth daily with breakfast. (Patient not taking: Reported on 04/14/2022) ADULT LOW DOSE ASPIRIN ORAL Take 81 mg by mouth once daily. (Patient not taking: Reported on 04/14/2022) REVIEW OF SYSTEMS GENERAL: No weight loss, malaise or fevers. RESPIRATORY: Negative for cough, hemoptysis, wheezing or shortness of breath. CARDIOVASCULAR: Negative for chest pain, leg swelling or palpitations. All other systems reviewed and negative other than HPI. PHYSICAL EXAM BP 128/76 Pulse 63 Temp 36.6 C (97.8 F) (Temporal) Resp 16 Wt 102.6 kg (226 lb 3.2 oz) SpO2 98% BMI 32.92 kg/m General: Well developed, well nourished, in no acute distress. Head: Normocephalic, atraumatic. Neck: Supple. Eyes: Normal conjunctiva, no scleral icterus. Lungs: Clear to auscultation bilaterally, no rubs, no wheezing. Cardiac: Regular rate and rhythm. No murmurs, gallops, or rubs. Extremities: No edema. ASSESSMENT: (E11.9) Type 2 diabetes mellitus without complication, without long-term current use of insulin (HCC) (primary encounter diagnosis) (I10) Essential hypertension (E78.5) Hyperlipidemia, unspecified hyperlipidemia type (D64.9) Anemia, unspecified type (Z23) Encounter for immunization PLAN: - BP controlled - DM controlled - Continue current medications - Check labs - Discussed diet/exercise - Continue follow up with nephrology - PNA vaccine today, patient to get covid and flu vaccines at the pharmacy - Labs ordered for 6 months - Follow up 6 months; prn for new or worsening symptoms Camelia Calixto APRN.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 * Chiara Oakes MA - 05/10/2022 7:48 AM EDT SHINGRIX VACCINE(1 of 2) Never done PNEUMOCOCCAL(2 - PCV) due on 03/07/2020 BP CONTROLLED (<130/80) due on 06/12/2020 DILATED RETINAL EXAM due on 05/03/2021 DEPRESSION SCREENING due on 01/27/2022 COVID-19 VACCINE(4 - Booster for Moderna series) due on 03/22/2022 INFLUENZA(1) due on 05/03/2022 documented in this encounterK[facility]09-08-2022 Instructions* Patient Instructions* Chiara Oakes MA - 05/10/2022 7:50 AM EDT [facility] TEST INFORMATION [facility] HOURS: Lab is open: 7:30am to 5:00pm M - Th, 7:30am to 4:00pm onFri and 8am -12pm on Sat. The lab is located in [facility] on the first floor. There is a registration window at the lab, available 7 am to 3 pm Saturday - Saturday. If registration is unavailable at the lab, you may register at the patient registration office near the [facility]. SCHEDULING A LAB APPOINTMENT: Laboratory appointments are recommended.Walk ins are still accepted. Call [phone] or schedule via WorldTV scheduling ticket. ROUTINE LAB ORDERS 60 days after they are entered. If your lab orders , you may be required to wait in the lab while they are reinstated FUTURE ORDERS are lab tests to be completed on the EXPECTED date. These orders 60 days afterthe expected date. STANDING ORDERS are recurring orders with an expiration date. The interval will indicate how often the test should be completed. CT / MRI / IVP If you have lab tests ordered for one of these radiology exams, please complete the blood work at least one day prior to the scheduled exam. PRESCRIPTION REFILL REQUESTS Request prescription refills through your VMO Systemst account or contact your Pharmacy. My Chart Schedule My Appointment enables you to view your established primary care provider's open schedule and book an appointment online in real-time. This feature is available in internal medicine, family medicine, or pediatrics at any of our [facility] locations and main campus. documented in this encounterKet[facility]08-30-2022 Miscellaneous Notes* Telephone Encounter - Yamilex Francis - 05/01/2022 12:23 PM EDT Attending Physician Statement faxed to [employer]. Confirmation received. Patient informed, denies any other need at this time. documented in this encounterKettering [facility]08-25-2022 Miscellaneous Notes* Telephone Encounter - Yamilex Francis - 04/26/2022 10:12 AM EDT FMLA Paperwork faxed to [employer], [employer] and [employer]. Confirmation Received. Patient informed, Copies mailed to patient. Denies any other need or concern at this time. documented in this encounterKettering [facility]08-25-2022 History of Present illness Narrative* Bogdan Weeks MD - 04/26/2022 7:20 AM EDT FOLLOW UP VISIT - CHOLECYSTECTOMY NAME: Henrique [employer] NO.: [id number] DATE OF SERVICE: 04/26/2022 : 1960 REFERRING PHYSICIAN: MD Henrique Bhagat is a patient I am following for a complaint of right upper quadrant pain and admitted through the ER on April 14 with acute cholecystitis. I performed a laparoscopic cholecystectomy with intraoperative choleangiogram on April 14, 2022. Patient was found to have acute cholecystitis normal cholangiogram was felt to be mild hepatic cirrhosis. Pathology demonstrated: FINAL DIAGNOSIS A. Gallbladder, cholecystectomy: - Acute and chronic cholecystitis with cholelithiasis. The patient currently notes resolution of his preoperative complaints. his appetite has been good. he denies fever, chills or abdominal pain. he does note some mild umbilical incisional discomfort. VITALS: There were no vitals taken for this visit. On examination, the abdomen is benign. The incisions are healing well without signs of infection orinflammation. Assessment IMPRESSION: status post laparoscopic cholecystectomy with intraoperative cholangiogram PLAN: If the patient notes any problems, he should contact me immediately. he may return to his regular activities as tolerated, with the exception of no lifting greater than 20 pounds for the next 4 weeks. The patient is to contact me immediately is he experiences any of his preoperative symptoms. We discussed that occasional right up quadrant symptoms similar to the preoperative complaints can occur in the first couple of weeks post operatively. If this persists beyond the first 2-3 weeks, they should contact our office. Diagnoses: (K81.9) Cholecystitis (primary encounter diagnosis) Return to Clinic: The patient is instructed to follow-up with me as needed. Bogdan Weeks MD documented in this encounterKettering [facility]08-15-2022 History of Present illness Narrative* Kelly Spence RN - 04/16/2022 11:05 AM EDT TRANSITIONAL CARE MANAGEMENT (TCM) COMMUNITY MONITORING PROGRAM Provider Action/FYI: Wednesday May 25, 2022 8:00 AM Office Visit with Camelia Calixto APRN.[facility] Internal Medicine [place] Bogdan Weeks MD [phone] f/u appt already made Spoke with Pt. He reports Pain is well controlled Still some pain when coughing or bending over Pt. is walking around well with walker Tolerating a full liquid diet well No N/V Pt. has no s/s of infection His is helping Pt. with ADLs when needed He is aware of all upcoming appts. SUMMARY: Pt discharged from [place] on 04/15. Admitted for: Cholecystitis Contact made with patient: Yes Hi my name is Kelly Spence RN and I am calling [facility] the [facility] on behalf of your PCP, Arsenio Monique MD I understand you were recently in the hospital so I am calling to check inwith you to ensure you are feeling well now that you're home. May I ask you a few questions relatedto your hospital stay and well-being? Yes Contact with patient post discharge, spoke to patient. Patient identified by name and . Do you feel your health is BETTER, WORSE, or the SAME since leaving the hospital? Better ACTION TAKEN: Patient indicated symptoms are better or same, no action required. Continue outreach. MEDICATIONS: Many patients have questions or concerns about their medications once they are home. Do you have any questions about taking your medications or which medication you should be on? No Do you need any medication refills at this time, including any of the medications you might take only when needed? No ACTION TAKEN: No action required For RNs or Pharmacy completing outreach ONLY, was a medication review completed? No SOCIAL: We would like to make sure you have what you need so that your basics needs are met - including your personal safety, food, housing and medications. Would you like to speak with a social work lift team technician to help give you support for any of these needs? Yes It can be normal to feel anxious or down during a time like this. Would you like to talk to a mental health professional about how you have been feeling? No ACTION TAKEN: No action taken DISCHARGE INTRUCTIONS: Your discharge instructions / After Visit Summary (AVS) are important in guiding you through the recovery process. Do you have any questions related to your discharge instructions? No Do you have all the necessary equipment and supplies at home? Yes ACTION TAKEN: No action required I would like to help you schedule a hospital follow-up virtual or telephone visit with your PCP. This is a great way for you to connect with your provider to ensure you have safely transitioned home.If you are agreeable, I will send your request to a business objects architect who will contact and assist you with that appointment. This will give you an opportunity to ask any questions or address any concerns youmay have with your PCP. Inform the patient that if they have any questions or concerns prior to that appointment, to call their PCP's office right away. ACTION TAKEN: No action required, patient already has an appointment scheduled. Your doctor would like us to remind you of the recommendations regarding the coronavirus (Covid19) outbreak: Avoid public places as much as possible. Avoid close contact (within 6 feet) with others you don t live with, especially if they are sick. Stay home if you are sick. Wash your hands regularly for at least 20 seconds with soap and water. Wear a cloth mask in public places to help reduce community spread. Do not go to your Doctor s office unless instructed to do so. For any non- emergency symptoms, call your Doctor s office to get instructions on how to manage (we might recommend a telephone or virtualvisit). For emergency symptoms, proceed to Emergency Department as usual but inform them of cough and fever symptoms KAVITA if present (or call on the way if possible). TCM Home Visit Referral Source of Stratification: [facility] Hospital Admission Status: Discharged Readmission Risk Score: 11 ZOE Score: 6 Program referral criteria met: Does not meet referral criteria Patient does not qualify for High Risk TCM Home Visit program due to: Does not meet referral criteria Patient does not quality for High Risk TCM Home Visit Program due to: Does not meet referral criteria Preferred contact number: n/a Is patient staying somewhere other than the listed home address: No Dialysis Patient: No documented in this encounterKet[facility]07-08-2022 Miscellaneous Notes* Telephone Encounter - Bryanna Devries RN - 03/09/2022 3:42 PM EDT Patient was notified and voiced understanding of provider message below. * Telephone Encounter - Arsenio Monique MD - 03/09/2022 9:04 AM EDT Rx sent. Please let know that I sent a script for the lancet device also. Lastly I believe patient is getting lisinopril from his kidney doctor. He should ask them for a refill. Thanks, Arsenio Monique MD * Telephone Encounter - Michelle Anaya - 03/09/2022 8:12 AM EDT Patient has been identified by name and date of : Yes Pending Prescriptions Disp Refills LISINOPRIL 10 MG TABLET 180 tablet 3 Sig: Take 1 tablet by mouth twice daily. CHRISTIANO: No ONETOUCH VERIO TEST STRIPS 200 Strip 3 Sig: Testing twice daily. CHRISTIANO: No LANCETS 33 GAUGE 200 Each 3 Sig: twice daily. CHRISTIANO: No RX INSTRUCTIONS: Please update test strips prescription with DX code and insulin or non-insulin dependent. Lisinopril last was only a Med Update. Testing twice daily. Patient needs today, please. Patient requesting a call when RX is approved and sent to the pharmacy. Please call patient at:[phone] Michelle Anaya documented in this encounterKettering [facility]07-08-2022 Miscellaneous Notes* Telephone Encounter - Arsenio Monique MD - 03/09/2022 2:18 PM EDT Rx already sent Arsenio Monique MD * Telephone Encounter - Michelle Tomlin Pss - 03/09/2022 8:18 AM EDT Henrique Levin is a patient of Arsenio Monique MD today Aniyah, spouse is calling to request a new lancet device, current one is broken - please send to [facility]. Please notify Aniyah once sent, today. Patient has been identified by name and birthdate. Duration of symptoms: N/A Person calling: spouse: Was an appointment scheduled: No Closing statement: Results or non-symptom based questions: Thank you for calling [facility], your call will be returned within the next business day. Michelle Tomlin Pss documented in this encounterKet[facility]04-12-2022 Miscellaneous Notes* Telephone Encounter - Ros Yañez RN - 12/12/2021 12:16 PM EDT Notified patient. Patient verbalizes understanding and has no other questions or concerns at this time. Ros Yañez RN * Telephone Encounter - Camelia Calixto APRN.CNP - 12/12/2021 11:34 AM EDT Please let patient know that his stool for colon cancer screening was negative for blood. Camelia Calixto APRN.CNP documented in this encounterKettering Health [facility]03-22-2019 History of Past illness Narrative* Problem Noted Date Resolved Date Tobacco use disorder 11/21/2018 07/22/2020 Obesity, Class II, BMI 35-39.9 03/06/2018 0 02/10/2019 documented as of this encounter (statuses as of 12/12/2021) [address]22-2019 History of Past illness Narrative* Problem Noted Date Resolved Date Tobacco use disorder 11/21/2018 07/22/2020 Obesity, Class II, BMI 35-39.9 03/06/2018 0 02/10/2019 documented as of this encounter (statuses as of 03/07/2022) [address]22-2019 History of Past illness Narrative* Problem Noted Date Resolved Date Tobacco use disorder 11/21/2018 07/22/2020 Obesity, Class II, BMI 35-39.9 03/06/2018 0 02/10/2019 documented as of this encounter (statuses as of 03/09/2022) [address]22-2019 History of Past illness Narrative* Problem Noted Date Resolved Date Tobacco use disorder 11/21/2018 07/22/2020 Obesity, Class II, BMI 35-39.9 03/06/2018 0 02/10/2019 documented as of this encounter (statuses as of 03/09/2022) [address]-2019 History of Past illness Narrative* Problem Noted Date Resolved Date Tobacco use disorder 11/21/2018 07/22/2020 Obesity, Class II, BMI 35-39.9 03/06/2018 0 02/10/2019 documented as of this encounter (statuses as of 04/16/2022) [address]-2019 History of Past illness Narrative* Problem Noted Date Resolved Date Tobacco use disorder 11/21/2018 07/22/2020 Obesity, Class II, BMI 35-39.9 03/06/2018 0 02/10/2019 documented as of this encounter (statuses as of 04/26/2022) [address]-2019 History of Past illness Narrative* Problem Noted Date Resolved Date Tobacco use disorder 11/21/2018 07/22/2020 Obesity, Class II, BMI 35-39.9 03/06/2018 0 02/10/2019 documented as of this encounter (statuses as of 04/26/2022) [address]-2019 History of Past illness Narrative* Problem Noted Date Resolved Date Tobacco use disorder 11/21/2018 07/22/2020 Obesity, Class II, BMI 35-39.9 03/06/2018 0 02/10/2019 documented as of this encounter (statuses as of 05/01/2022) [address]-2019 History of Past illness Narrative* Problem Noted Date Resolved Date Tobacco use disorder 11/21/2018 07/22/2020 Obesity, Class II, BMI 35-39.9 03/06/2018 0 02/10/2019 documented as of this encounter (statuses as of 05/10/2022) [address]-2019 History of Past illness Narrative* Problem Noted Date Resolved Date Tobacco use disorder 11/21/2018 07/22/2020 Obesity, Class II, BMI 35-39.9 03/06/2018 0 02/10/2019 documented as of this encounter (statuses as of 05/18/2022) [address]-2019 History of Past illness Narrative* Problem Noted Date Resolved Date Tobacco use disorder 11/21/2018 07/22/2020 Obesity, Class II, BMI 35-39.9 03/06/2018 0 02/10/2019 documented as of this encounter (statuses as of 05/22/2022) [address]-2019 History of Past illness Narrative* Problem Noted Date Resolved Date Tobacco use disorder 11/21/2018 07/22/2020 Obesity, Class II, BMI 35-39.9 03/06/2018 0 02/10/2019 documented as of this encounter (statuses as of 07/02/2022) [address]-2019 History of Past illness Narrative* Problem Noted Date Resolved Date Tobacco use disorder 11/21/2018 07/22/2020 Obesity, Class II, BMI 35-39.9 03/06/2018 0 02/10/2019 documented as of this encounter (statuses as of 08/26/2022) [address]-2019 History of Past illness Narrative* Problem Noted Date Resolved Date Tobacco use disorder 11/21/2018 07/22/2020 Obesity, Class II, BMI 35-39.9 03/06/2018 0 02/10/2019 documented as of this encounter (statuses as of 09/08/2022) [address]-2019 History of Past illness Narrative* Problem Noted Date Resolved Date Tobacco use disorder 11/21/2018 07/22/2020 Obesity, Class II, BMI 35-39.9 03/06/2018 0 02/10/2019 documented as of this encounter (statuses as of 11/18/2022) [address]-2019 History of Past illness Narrative* Problem Noted Date Resolved Date Tobacco use disorder 11/21/2018 07/22/2020 Obesity, Class II, BMI 35-39.9 03/06/2018 0 02/10/2019 documented as of this encounter (statuses as of 11/20/2022) [address]-2019 History of Past illness Narrative* Problem Noted Date Resolved Date Tobacco use disorder 11/21/2018 07/22/2020 Obesity, Class II, BMI 35-39.9 03/06/2018 0 02/10/2019 documented as of this encounter (statuses as of 11/28/2022) [address]-2019 History of Past illness Narrative* Problem Noted Date Resolved Date Tobacco use disorder 11/21/2018 07/22/2020 Obesity, Class II, BMI 35-39.9 03/06/2018 0 02/10/2019 documented as of this encounter (statuses as of 12/12/2022) [address]-2019 History of Past illness Narrative* Problem Noted Date Resolved Date Tobacco use disorder 11/21/2018 07/22/2020 Obesity, Class II, BMI 35-39.9 03/06/2018 0 02/10/2019 documented as of this encounter (statuses as of 01/01/2023) [facility]-22-2019 History of Past illness Narrative* Problem Noted Date Diagnosed Date Resolved Date Tobacco use disorder 11/21/2018 020 Obesity, Class II, BMI 35-39.9 03/06/2018 02/10/2019 documented as of this encounter (statuses as of 06/08/2023) [address]-2019 History of Past illness Narrative* Problem Noted Date Diagnosed Date Resolved Date Tobacco use disorder 11/21/2018 020 Obesity, Class II, BMI 35-39.9 03/06/2018 02/10/2019 documented as of this encounter (statuses as of 06/08/2023) [address]-2019 History of Past illness Narrative* Problem Noted Date Diagnosed Date Resolved Date Tobacco use disorder 11/21/2018 020 Obesity, Class II, BMI 35-39.9 03/06/2018 02/10/2019 documented as of this encounter (statuses as of 06/20/2023) [address]-2019 History of Past illness Narrative* Problem Noted Date Diagnosed Date Resolved Date Tobacco use disorder 11/21/2018 020 Obesity, Class II, BMI 35-39.9 03/06/2018 02/10/2019 documented as of this encounter (statuses as of 07/09/2023) [address]-2019 History of Past illness Narrative* Problem Noted Date Diagnosed Date Resolved Date Tobacco use disorder 11/21/2018 020 Obesity, Class II, BMI 35-39.9 03/06/2018 02/10/2019 documented as of this encounter (statuses as of 07/16/2023) [facility] Diagnosis Type 2 diabetes mellitus without complication, without long-term current use of insulin (HCC) [facility] Diagnosis Type 2 diabetes mellitus without complication, without long-term current use of insulin (HCC) [facility] Diagnosis Cholecystitis- Primary Cholecystitis, unspecified [facility]* Diagnosis Type 2 diabetes mellitus without complication, without long-term current use of insulin (HCC)- Primary Essential hypertension Unspecified essential hypertension Hyperlipidemia, unspecified hyperlipidemia type Anemia, unspecified type Encounter for immunization Need for other specified prophylactic vaccination against single bacterial disease [facility]* Diagnosis Thrombocytopenia (HCC)- Primary Thrombocytopenia, unspecified [facility]* Diagnosis Onset Date Resolution Status [id number] acute History of tobacco use acute [facility] Work Phone: Evaluation note* Diagnosis Well adult exam- Primary Routine general medical examination at a health care facility Screening for colon cancer Special screening for malignant neoplasms, colon Type 2 diabetes mellitus with stage 3a chronic kidney disease, without long-term current use of insulin (HCC) Essential hypertension Unspecified essential hypertension Hyperlipidemia, unspecified hyperlipidemia type History of hepatitis C Personal history of other infectious and parasitic disease Thrombocytopenia (HCC) Thrombocytopenia, unspecified [facility]* Diagnosis Hyperlipidemia, unspecified hyperlipidemia type [facility] this [facility]* Diagnosis Essential hypertension- Primary Unspecified essential hypertension Type 2 diabetes mellitus without complication, without long-term current use of insulin (HCC) History of hepatitis C Personal history of other infectious and parasitic disease Cirrhosis of liver without ascites, unspecified hepatic cirrhosis type (HCC) Hyperlipidemia, unspecified hyperlipidemia type Stage 3b chronic kidney disease (HCC) Obesity, Class I, BMI 30-34.9 Obesity, unspecified Prostate cancer screening Special screening for malignant neoplasm of prostate [facility]* Diagnosis Chronic hepatitis C without hepatic coma (HCC) Chronic hepatitis C without mention of hepatic coma Fatty liver Other chronic nonalcoholic liver disease [facility]* Diagnosis Hyperlipidemia, unspecified hyperlipidemia type [facility]* Diagnosis Hyperlipidemia Other and unspecified hyperlipidemia [facility]* Diagnosis Type 2 diabetes mellitus without complication, without long-term current use of insulin (HCC)- Primary Hyperlipidemia, unspecified hyperlipidemia type Cirrhosis of liver without ascites, unspecified hepatic cirrhosis type (HCC) Thrombocytopenia (HCC) Thrombocytopenia, unspecified Type 2 diabetes mellitus with stage 3a chronic kidney disease, without long-term current use of insulin (HCC) Prostate cancer screening Special screening for malignant neoplasm of prostate Screening for colon cancer Special screening for malignant neoplasms, colon History of colonic polyps Personal history of colonic polyps [facility] Diagnosis Essential hypertension- Primary Unspecified essential hypertension [facility] Diagnosis Type 2 diabetes mellitus with stage 3a chronic kidney disease, without long-term current use of insulin (HCC)- Primary Cirrhosis of liver without ascites, unspecified hepatic cirrhosis type (HCC) Screening for colon cancer Special screening for malignant neoplasms, colon Prostate cancer screening Special screening for malignant neoplasm of prostate Mixed hyperlipidemia [facility]* Diagnosis Onset Date Resolution Status Admit Date Encounter for screening for malignant neoplasm of lung in former smoker who acute March 02, 2025 12:07pm History of tobacco use acute Ju 2024 12:07pm [facility] Work Phone: Reccyd for referral (narrative)* Outpatient Procedure (Routine) - New Request Specialty Diagnoses / Procedures Referred By Erica davis Referred To Contact [facility] Diagnoses Screening for colon cancer History of colonic polyps Procedures COLONOSCOPY SCREENING COLONOSCOPY FLX DX W/COLLJ SPEC WHEN PFRMD Arsenio Monique MD [address] [place] [address] [facility] [address] [place], [place] [id number] Referral ID Status Reason Start Date Expiration Date Visits Requested Visits Authorized [id number] New Request Auto-Generat ed Referral 07/31/2025 1 1 [facility] for referral (narrative)No reason for referral [facility] Work [facility]: Resogk for visit Narrative* Diagnostic Procedure Only (Routine) - Closed Specialty Diagnoses / Procedures Referred By Erica davis Referred To Contact [facility] Diagnoses Chronic hepatitis C without hepatic coma (HCC) Fatty liver Procedures US ABD RIGHT UPPER QUADRANT US ABDOMINAL REAL TIME W/IMAGE LIMITED Arsenio Monique MD [address] [place] [address] [place] [address] Referral ID Status Reason Start Date Expiration Date V isits Requested Visits Authorized [id number] Closed Auto-Generate d Referral 05/28/2023 06/26/2024 1 1 [facility] Summary Purpose Family History Relationship Condition Age at Onset Recorded Date/T merritt father Cardiac disease Unknown Anemia Unknown mother Renal failure Unknown mother Malignant neoplasm of breast Unknown mother Diabetes mellitus Unknown Advance Directives Advance Directive Response Recorded Date/ Time Living Will No April 14 9:30am Power of Drum Stenciler No April 14 021 9:30am Reason for Referral Specialty Diagnoses / Procedures Referred By Contac t Referred To Contact Diagnoses Thrombocytopenia (HCC) Procedures CONSULT TO HEMATOLOGY/ONCOLOGY OFFICE/OUTPATIENT [facility] 60-74 MINUTES Camelia Calixto, SIGNS 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.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 [address] [id number] Referral ID Status Reason Start Date Expiration Date Visits Requested Visits Authorized [id number] Pending Review PCP Requested Referral 05/22/2022 05/22/2023 1 1 Chief Complaint and Reason for Visit Chief Complaint lung cancer screenin g SCREENING Reason for Visit [id number] History of tobacco use Chief Complaint Admit Date Lung cancer screening March 02, 2025 12: 07pm Reason for Visit Admit Date Encounter for screening for malignant neoplasm of lung in former smoker who March 02, 2025 12:07pm History of tobacco use March 02, 2025 12 :07pm Chief Complaint Admit Date Lung cancer screening March 02, 2025 12: 07pm NICOTINE DEPENDENCE March 02, 2025 12:40 pm 1 YEAR LABS March 02, 2025 1:06p m ONC/HEM March 02, 2025 2:15p m Reason for Visit Admit Date Encounter for screening for malignant neoplasm of lung in former smoker who March 02, 2025 12:07pm History of tobacco use March 02, 2025 12 :07pm Anemia March 02, 2025 1:06p m Hepatitis C March 02, 2025 2:15p m AYDIN (obstructive sleep apnea) March 02, 2025 2:15pm Anemia March 02, 2025 2:15p m Asymptomatic proteinuria March 02, 2025 2:15pm CRF (chronic renal failure) March 02 2:15pm 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, 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 Thrombocytopenia March 02, 2025 2:15p m Gammopathy March 02, 2025 2:15p m Additional Source Comments (unrecognized sect ion and content) No Status Records FoundNo Status Records FoundNo Status Records FoundNo Status Records FoundNo Status Records Found INFORMATION SOURCE (unrecogn ized section and content) DATE CREATED AUTHOR 04/25/2020 [facility] DATE CREATED AUTHOR AUTHOR'S ORGANIZ ATION 01/19/2025 [facility] DATE CREATED AUTHOR AUTHOR'S ORGANIZ ATION 02/06/2025 [facility] DATE CREATED AUTHOR AUTHOR'S ORGANIZ ATION 02/15/2025 [facility] DATE CREATED AUTHOR AUTHOR'S ORGANIZ ATION 03/01/2025 [facility] Source Comments (unrecognize d section and content) In the event this informatio n is protected by the Federal Confidentiality of Alcohol and Drug Abuse Patient Records regulations: The Federal rules restrict any use of the information to criminally investigate or prosecute any alcohol or drug abuse patient.[facility] the event this information is protected by the Federal Confidentiality of Alcohol and Drug Abuse Patient Records regulations: The Federal rules restrict any use of the information to criminally investigate or prosecute any alcohol or drug abuse patient.[facility] the event this information is protected by the Federal Confidentiality of Alcohol and Drug Abuse Patient Records regulations: The Federal rules restrict any use of the information to criminally investigate or prosecute any alcohol or drug abuse patient.[facility] the event this information is protected by the Federal Confidentiality of Alcohol and Drug Abuse Patient Records regulations: The Federal rules restrict any use of the information to criminally investigate or prosecute any alcohol or drug abuse patient.[facility] the event this information is protected by the Federal Confidentiality of Alcohol and Drug Abuse Patient Records regulations: The Federal rules restrict any use of the information to criminally investigate or prosecute any alcohol or drug abuse patient.[facility] the event this information is protected by the Federal Confidentiality of Alcohol and Drug Abuse Patient Records regulations: The Federal rules restrict any use of the information to criminally investigate or prosecute any alcohol or drug abuse patient.[facility] the event this information is protected by the Federal Confidentiality of Alcohol and Drug Abuse Patient Records regulations: The Federal rules restrict any use of the information to criminally investigate or prosecute any alcohol or drug abuse patient.[facility] the event this information is protected by the Federal Confidentiality of Alcohol and Drug Abuse Patient Records regulations: The Federal rules restrict any use of the information to criminally investigate or prosecute any alcohol or drug abuse patient.[facility] the event this information is protected by the Federal Confidentiality of Alcohol and Drug Abuse Patient Records regulations: The Federal rules restrict any use of the information to criminally investigate or prosecute any alcohol or drug abuse patient.[facility] the event this information is protected by the Federal Confidentiality of Alcohol and Drug Abuse Patient Records regulations: The Federal rules restrict any use of the information to criminally investigate or prosecute any alcohol or drug abuse patient.[facility] the event this information is protected by the Federal Confidentiality of Alcohol and Drug Abuse Patient Records regulations: The Federal rules restrict any use of the information to criminally investigate or prosecute any alcohol or drug abuse patient.[facility] the event this information is protected by the Federal Confidentiality of Alcohol and Drug Abuse Patient Records regulations: The Federal rules restrict any use of the information to criminally investigate or prosecute any alcohol or drug abuse patient.[facility] the event this information is protected by the Federal Confidentiality of Alcohol and Drug Abuse Patient Records regulations: The Federal rules restrict any use of the information to criminally investigate or prosecute any alcohol or drug abuse patient.[facility] the event this information is protected by the Federal Confidentiality of Alcohol and Drug Abuse Patient Records regulations: The Federal rules restrict any use of the information to criminally investigate or prosecute any alcohol or drug abuse patient.[facility] the event this information is protected by the Federal Confidentiality of Alcohol and Drug Abuse Patient Records regulations: The Federal rules restrict any use of the information to criminally investigate or prosecute any alcohol or drug abuse patient.[facility] the event this information is protected by the Federal Confidentiality of Alcohol and Drug Abuse Patient Records regulations: The Federal rules restrict any use of the information to criminally investigate or prosecute any alcohol or drug abuse patient.[facility] the event this information is protected by the Federal Confidentiality of Alcohol and Drug Abuse Patient Records regulations: The Federal rules restrict any use of the information to criminally investigate or prosecute any alcohol or drug abuse patient.[facility] the event this information is protected by the Federal Confidentiality of Alcohol and Drug Abuse Patient Records regulations: The Federal rules restrict any use of the information to criminally investigate or prosecute any alcohol or drug abuse patient.[facility] the event this information is protected by the Federal Confidentiality of Alcohol and Drug Abuse Patient Records regulations: The Federal rules restrict any use of the information to criminally investigate or prosecute any alcohol or drug abuse patient.[facility] the event this information is protected by the Federal Confidentiality of Alcohol and Drug Abuse Patient Records regulations: The Federal rules restrict any use of the information to criminally investigate or prosecute any alcohol or drug abuse patient.[facility] the event this information is protected by the Federal Confidentiality of Alcohol and Drug Abuse Patient Records regulations: The Federal rules restrict any use of the information to criminally investigate or prosecute any alcohol or drug abuse patient.[facility] the event this information is protected by the Federal Confidentiality of Alcohol and Drug Abuse Patient Records regulations: The Federal rules restrict any use of the information to criminally investigate or prosecute any alcohol or drug abuse patient.[facility] the event this information is protected by the Federal Confidentiality of Alcohol and Drug Abuse Patient Records regulations: The Federal rules restrict any use of the information to criminally investigate or prosecute any alcohol or drug abuse patient.[facility] the event this information is protected by the Federal Confidentiality of Alcohol and Drug Abuse Patient Records regulations: The Federal rules restrict any use of the information to criminally investigate or prosecute any alcohol or drug abuse patient.[facility] the event this information is protected by the Federal Confidentiality of Alcohol and Drug Abuse Patient Records regulations: The Federal rules restrict any use of the information to criminally investigate or prosecute any alcohol or drug abuse patient.[facility] the event this information is protected by the Federal Confidentiality of Alcohol and Drug Abuse Patient Records regulations: The Federal rules restrict any use of the information to criminally investigate or prosecute any alcohol or drug abuse patient.[facility] the event this information is protected by the Federal Confidentiality of Alcohol and Drug Abuse Patient Records regulations: The Federal rules restrict any use of the information to criminally investigate or prosecute any alcohol or drug abuse patient.[facility] the event this information is protected by the Federal Confidentiality of Alcohol and Drug Abuse Patient Records regulations: The Federal rules restrict any use of the information to criminally investigate or prosecute any alcohol or drug abuse patient.[facility] the event this information is protected by the Federal Confidentiality of Alcohol and Drug Abuse Patient Records regulations: The Federal rules restrict any use of the information to criminally investigate or prosecute any alcohol or drug abuse patient.[facility] the event this information is protected by the Federal Confidentiality of Alcohol and Drug Abuse Patient Records regulations: The Federal rules restrict any use of the information to criminally investigate or prosecute any alcohol or drug abuse patient.[facility] the event this information is protected by the Federal Confidentiality of Alcohol and Drug Abuse Patient Records regulations: The Federal rules restrict any use of the information to criminally investigate or prosecute any alcohol or drug abuse patient.[facility] the event this information is protected by the Federal Confidentiality of Alcohol and Drug Abuse Patient Records regulations: The Federal rules restrict any use of the information to criminally investigate or prosecute any alcohol or drug abuse patient.[facility] Reason for Visit (unrecogniz ed section and content) Reason Comments Results Reason Comments Question Lancet new device Reason Onset Date Comments Refill Request 03/09/2022 SEE RX NOTES Reason Onset Date Comments Transition Of Care 04/16/2022 TCM initial o utreach discharge 04/15 Reason Comments FMLA Paperwork Reason Comments Follow Up Cholecystectomy Reason Comments Attending Physician Statement Reason Comments Follow Up 6month Reason Comments Results Reason Comments Patient Request Patient is on the ro ad now and unable to get the letter he needs can the office fax the letter to the [facility] in [place] Reason Comments Patient Update Reason Comments Physical Reason Comments Orders Reason Comments outside notes Abdominal Pain Reason Onset Date Comments Refill Request 12/31/2022 Reason Comments Refill Request Reason Comments Follow Up Reason Comments Diabetic Eye Exam [facility] Reason Onset Date Comments Refill Request 07/13/2023 Reason Comments Follow Up Reason Comments Lab Orders Work request Reason Comments F/U 6 months Care Teams (unrecognized sec tion and content) Traffic Engineering Director Relationship Specialty Start Date End Date Kayden, Arsenio Gipson MD [address] [place] [address] PCP - General Internal Medicine 05/19/20 Traffic Engineering Director Relationship Specialty Start Date End Date Kayden, Arsenio Gipson MD [address] [place] [address] PCP - General Internal Medicine 05/19/20 Traffic Engineering Director Relationship Specialty Start Date End Date Kayden, Arsenio Gipson MD [address] [place] [address] PCP - General Internal Medicine 05/19/20 Traffic Engineering Director Relationship Specialty Start Date End Date [place], Arsenio Gipson MD [address] [place] [address] PCP - General Internal Medicine 05/19/20 Traffic Engineering Director Relationship Specialty Start Date End Date Kayden, Arsenio Gipson MD [address] [place] [address] PCP - General Internal Medicine 05/19/20 Traffic Engineering Director Relationship Specialty Start Date End Date [place], Arsenio Gipson MD [address] [place] [address] PCP - General Internal Medicine 05/19/20 Traffic Engineering Director Relationship Specialty Start Date End Date Kayden, Arsenio Gipson MD [address] [place] [address] PCP - General Internal Medicine 05/19/20 Traffic Engineering Director Relationship Specialty Start Date End Date [place], Arsenio Gipson MD [address] [place] [address] PCP - General Internal Medicine 05/19/20 Traffic Engineering Director Relationship Specialty Start Date End Date Kayden, Arsenio Gipson MD [address] [place] [id number] PCP - General Internal Medicine 05/19/20 Traffic Engineering Director Relationship Specialty Start Date End Date KaydenArsenio MD [address] [place] [id number] PCP - General Internal Medicine 05/19/20 Traffic Engineering Director Relationship Specialty Start Date End Date [place], Arsenio Gipson MD [address] [place] [id number] PCP - General Internal Medicine 05/19/20 Traffic Engineering Director Relationship Specialty Start Date End Date Kayden, Arsenio Gipson MD [address] [place] [id number] PCP - General Internal Medicine 05/19/20 Traffic Engineering Director Relationship Specialty Start Date End Date KaydenArsenio MD [address] [place] [address] PCP - General Internal Medicine 05/19/20 Traffic Engineering Director Relationship Specialty Start Date End Date KaydenArsenio MD [address] [place] [address] PCP - General Internal Medicine 05/19/20 Traffic Engineering Director Relationship Specialty Start Date End Date AlbanyArsenio MD [address] [place] [id number] PCP - General Internal Medicine 05/19/20 Traffic Engineering Director Relationship Specialty Start Date End Date AlbanyArsenio MD [address] [place] [address] PCP - General Internal Medicine 05/19/20 Traffic Engineering Director Relationship Specialty Start Date End Date AlbanyArsenio MD [address] [place] [id number] PCP - General Internal Medicine 05/19/20 Traffic Engineering Director Relationship Specialty Start Date End Date AlbanyArsenio moore MD [address] [place] [address] PCP - General Internal Medicine 05/19/20 Traffic Engineering Director Relationship Specialty Start Date End Date KaydenArsenio moore MD [address] [place] [address] PCP - General Internal Medicine 05/19/20 Traffic Engineering Director Relationship Specialty Start Date End Date KaydenArsenio moore MD [address] [place] [address] PCP - General Internal Medicine 05/19/20 Traffic Engineering Director Relationship Specialty Start Date End Date KaydenArsenio MD [address] [place] [address] PCP - General Internal Medicine 05/19/20 Radha Toro APRN.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 [address] [place] [id number] Molecular Modeler Internal Medicine 08/09/24 Traffic Engineering Director Relationship Specialty Start Date End Date KaydenArsenio moore MD [address] [place] [address] PCP - General Internal Medicine 05/19/20 Radha Toro APRN.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 [address] [place] [address] Molecular Modeler Internal Medicine 08/09/24 Traffic Engineering Director Relationship Specialty Start Date End Date Arsenio Monique MD [address] [place] [address] PCP - General Internal Medicine 05/19/20 Radha Toro APRN.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 [address] [place] [address] Molecular Modeler Internal Medicine 08/09/24 Team Status: Active Member Role/Relationship Status Dates Dr. Arsenio Monique MD Primary Care Provider Active Team Status: Inactive Member Role/Relationship Status Dates Dr. Arsenio Monique MD Primary Care Provider Active Start: March 02, 2025 End: March 02, 2025 Dr. Arsenio Monique MD Referring Provider Active Start: March 02, 2025 End: March 02, 2025 Janicepreet Buitrago [employer], [employer]-C Attending Provider Active Start: March 02, 2025 End: March 02, 2025 Team Status: Active Member Role/Relationship Status Dates Dr. Arsenio Monique MD Primary Care Provider Active Start: March 02, 2025 Janice Iftikhar [employer], [employer]-C Attending Provider Active Start: March 02, 2025 Janice Iftikhar [employer], [employer]-C Referring Provider Active Start: March 02, 2025 Team Status: Inactive Member Role/Relationship Status Dates Dr. Arsenio Monique MD Primary Care Provider Active Start: March 02, 2025 End: March 02, 2025 Dr. Arsenio Monique MD Referring Provider Active Start: March 02, 2025 End: March 02, 2025 Dr. Jadyn Moreno MD Attending Provider Active Start: March 02, 2025 End: March 02, 2025 Team Status: Active Member Role/Relationship Status Dates Dr. Jadyn Moreno MD Attending Provider Active Start: March 02, 2025 Dr. Fadumo Fox MD Primary Care Provider Active Start: March 02, 2025 Dr. Fadumo Fox MD Family Provider Active Start: March 02, 2025 Dr. Fadumo Fox MD Referring Provider Active Start: March 02, 2025 Dr. Fadumo Fox MD Other Provider Active Start: March 02, 2025 Goals (unrecognized section and content) Goals may be documented in a n alternate sectionGoals may be documented in an alternate sectionGoals may be documented in an alternate section FOR RECORDS PERTAINING TO PATIENTS WHO ARE OR HAVE BEEN ENROLLED IN A CHEMICAL DEPENDENCY/SUBSTANCEABUSE PROGRAM, SOME INFORMATION MAY BE OMITTED. This clinical summary was aggregated from multiple sources. Caution should be exercised in using it in the provision of clinical care. This summary normalizes information from multiple sources, and as a consequence, information in this document may materially change the coding, format and clinical context of patient data. In addition, data may be omitted in some cases. CLINICAL DECISIONS SHOULD BE BASED ON THE PRIMARY CLINICAL RECORDS. [facility] [employer] provides no warranty or guarantee of the accuracy or completeness of information in this document.
== END | disposition home or self-care (01) ==
LOC: CT 12:42
PROVIDERS: PCP Internal Medicine; Referring Provider Nurse Practitioner Family; Visit Provider Nurse Practitioner Family
DX: Z12.2 Encounter for screening for malignant neoplasm of respiratory organs (principal); Z87.891 Personal history of nicotine dependence
CPT/HCPCS: 71271